=== PATIENT | male | born 1955 | race African-American/Black ===

== ENCOUNTER 2016-10-03 11:37 | Inpatient (IN) | payer OTHER ==
[2016-10-03] MEDS ORDERED: SODIUM CHLORIDE 0.9% 500 ML IV STA (12:08)
[2016-10-03] MEDS ORDERED: IV VANCOMYCIN PER PHARMACY 1 EACH MISC MISCELLANE PRN (12:08)
[2016-10-03] MEDS ORDERED: VANCOMYCIN 1,000 MG in SODIUM CHLORIDE 0.9% 250 ML IVPB ONE (12:15)
--- NOTE | 2016-10-03 12:20 | ED ---
General Adult HPI - General Chief complaint: Recheck/Abnormal Lab/Rx Stated complaint: BEATHING, SWELLING ABSCESS Time Seen by Provider: 10/03/16 11:59 Source: patient, RN notes reviewed Mode of arrival: ambulatory Limitations: no limitations - History of Present Illness Initial comments: 61-year-old male presents to emergency room chief complaint of abscesses to the back of both legs. Patient states he's had these since Saturday. Patient states one has been treating the other has not. Patient states his cold most of his legs to swell as well. Patient denies any fever chills with this. Patient states he has noticed some redness. Patient states that he is a heroin abuser and he did use heroin on Saturday. Patient denies any other issues at this time. Patient states he chronically shortness of breath and COPD and that is no different than normal. Patient denies any chest discomfort. Patient states that the abscess is just seemingly worsening so he thought that he was concerned. Patient denies any recent fever, chills, chest pain, back pain, abdominal pain, nausea vomiting, numbness or tingling, dysuria or hematuria, constipation or diarrhea, headaches or visual changes, or any other current symptoms. - Related Data Home Medications Medication Instructions Recorded Confirmed ALPRAZolam [Xanax] 0.25 mg PO TID PRN 10/03/16 10/03/16 Albuterol Inhaler [Ventolin Hfa 2 puff INHALATION RT-QID PRN 10/03/16 10/03/16 Inhaler] Ensure 1 can PO W/BRKFST 10/03/16 10/03/16 Ibuprofen [Motrin] 800 mg PO Q8HR PRN 10/03/16 10/03/16 Multivitamin [Men's Multi-Vitamin] 1 tab PO DAILY 10/03/16 10/03/16 Tiotropium 18 Mcg/Puff [Spiriva] 1 cap INHALATION RT-DAILY 10/03/16 10/03/16 traZODone HCL 50 - 100 mg PO HS 10/03/16 10/03/16 Allergies Allergy/AdvReac Type Severity Reaction Status Date / Time No Known Allergies Allergy Verified 10/03/16 12:22 Review of Systems ROS Statement: Those systems with pertinent positive or pertinent negative responses have been documented in the HPI. ROS Other: All systems not noted in ROS Statement are negative. Past Medical History Additional Past Medical History / Comment(s): IV drug abuse History of Any Multi-Drug Resistant Organisms: None Reported Past Surgical History: No Surgical Hx Reported Past Psychological History: No Psychological Hx Reported Smoking Status: Current every day smoker Past Alcohol Use History: None Reported Past Drug Use History: Heroin General Exam - General Exam Comments Initial Comments: General: The patient is awake and alert, in no distress, and does not appear acutely ill. Eye: Pupils are equal, round and reactive to light, extra-ocular movements are intact; there is normal conjunctiva bilaterally. No signs of icterus. Ears, nose, mouth and throat: There are moist mucous membranes. Neck: The neck is supple, there is no tenderness, Cardiovascular: There is a regular rate and rhythm. No murmur, rub or gallop is appreciated. Respiratory: Lungs are clear to auscultation, respirations are non-labored, breath sounds are equal. Minutes breath sounds. Gastrointestinal: Soft, non-distended, non-tender abdomen without masses or organomegaly noted. There is no rebound or guarding present. No CVA tenderness. Bowel sounds are unremarkable. Back: There is no tenderness to palpation in the midline. There is no obvious deformity. No rashes noted. Musculoskeletal: Normal ROM, no tenderness, patient does appear to have 2 large abscesses to the posterior aspect of the distal aspect of the left femurs one on the right does appear to be drained and now is indurated the one on the left does have fluctuance does appear to be needing drainage. Bilateral 2+ pitting edema Sensation intact. Pulses equal bilaterally 2+. Neurological: CN II-XII intact, There are no obvious motor or sensory deficits. Coordination appears grossly intact. Speech is normal. Skin: Skin is warm. Patient has nonblanching red last to the arms and legs. Patient has 2 abscesses behind the posterior thigh. Psychiatric: Cooperative, appropriate mood & affect, normal judgment. Limitations: no limitations Course Vital Signs 10/03/16 10/03/16 10/03/16 11:46 12:49 13:11 Temperature 97.6 F 97.7 F Pulse Rate 127 H 108 H 96 Respiratory 18 20 20 Rate Blood Pressure 125/62 162/92 136/85 O2 Sat by Pulse 97 72 L 99 Oximetry 10/03/16 10/03/16 10/03/16 13:22 14:00 16:06 Temperature 97.7 F Pulse Rate 96 92 92 Respiratory 18 20 18 Rate Blood Pressure 174/92 140/95 145/79 O2 Sat by Pulse 99 94 L 95 Oximetry EKG Findings - EKG Comments: EKG Findings:: normal sinus rhythm 94 bpm, normal axis, no atopy, no S-T depressions or elevations, Procedures - Procedures Initial comment: Procedure: Incision and drainage The skin overlying the abscess was prepped with Betadine, and anesthetized with 1% lidocaine without epinephrine. A #11 scalpel was then used to incise the abscess. Some purulent material was then extracted from the lesion. Wound culture obtained. Gauze dressing placed on top, The patient tolerated the procedure well. Medical Decision Making - Medical Decision Making 61-year-old male presents to the emergency department with a chief complaint of abscesses to bilateral legs with associated lower extremity swelling. At this time patient underwent an I&D of the bilateral lower extremities. Patient also has a petechial rash that is diffuse throughout the body. the hemoglobin has dropped since May. Patient's lab work otherwise is benign. Patient's cardiac exam shows no murmurs. Patient has continued to be afebrile patient has completely stable in the room. At this time we will admit the patient to Dr. Aguilar who is discussed the case with Dr. Khoury and does agree to the admission. Echo was discussed Dr. Aguilar states he would like to evaluate patient first. - Lab Data Result diagrams: 10/03/16 14:35 10/03/16 14:35 Lab Results 10/03/16 10/03/16 10/03/16 Range/Units 14:35 14:35 14:35 WBC 9.5 (3.8-10.6) k/uL RBC 3.72 L (4.30-5.90) m/uL Hgb 11.9 L (13.0-17.5) gm/dL Hct 37.3 L (39.0-53.0) % MCV 100.3 H (80.0-100.0) fL MCH 31.9 (25.0-35.0) pg MCHC 31.8 (31.0-37.0) g/dL RDW 13.3 (11.5-15.5) % Plt Count 209 (150-450) k/uL Neutrophils % 79 % Lymphocytes % 11 % Monocytes % 5 % Eosinophils % 3 % Basophils % 1 % Neutrophils # 7.5 (1.3-7.7) k/uL Lymphocytes # 1.0 (1.0-4.8) k/uL Monocytes # 0.5 (0-1.0) k/uL Eosinophils # 0.3 (0-0.7) k/uL Basophils # 0.1 (0-0.2) k/uL Hypochromasia Slight Sodium 146 H (137-145) mmol/L Potassium 4.2 (3.5-5.1) mmol/L Chloride 104 (98-107) mmol/L Carbon Dioxide 31 H (22-30) mmol/L Anion Gap 11 mmol/L BUN 23 H (9-20) mg/dL Creatinine 1.02 (0.66-1.25) mg/dL Est GFR (MDRD) Af Amer >60 (>60 ml/min/1.73 sqM) Est GFR (MDRD) Non-Af >60 (>60 ml/min/1.73 sqM) Glucose 87 (74-99) mg/dL Plasma Lactic Acid Heber (0.7-2.0) mmol/L Calcium 9.0 (8.4-10.2) mg/dL Magnesium 1.7 (1.6-2.3) mg/dL Total Bilirubin 0.7 (0.2-1.3) mg/dL AST 24 (17-59) U/L ALT 21 (21-72) U/L Alkaline Phosphatase 55 (38-126) U/L Troponin I (0.000-0.034) ng/mL NT-Pro-B Natriuret Pep 649 pg/mL Total Protein 7.8 (6.3-8.2) g/dL Albumin 3.3 L (3.5-5.0) g/dL 10/03/16 10/03/16 Range/Units 14:35 14:35 WBC (3.8-10.6) k/uL RBC (4.30-5.90) m/uL Hgb (13.0-17.5) gm/dL Hct (39.0-53.0) % MCV (80.0-100.0) fL MCH (25.0-35.0) pg MCHC (31.0-37.0) g/dL RDW (11.5-15.5) % Plt Count (150-450) k/uL Neutrophils % % Lymphocytes % % Monocytes % % Eosinophils % % Basophils % % Neutrophils # (1.3-7.7) k/uL Lymphocytes # (1.0-4.8) k/uL Monocytes # (0-1.0) k/uL Eosinophils # (0-0.7) k/uL Basophils # (0-0.2) k/uL Hypochromasia Sodium (137-145) mmol/L Potassium (3.5-5.1) mmol/L Chloride (98-107) mmol/L Carbon Dioxide (22-30) mmol/L Anion Gap mmol/L BUN (9-20) mg/dL Creatinine (0.66-1.25) mg/dL Est GFR (MDRD) Af Amer (>60 ml/min/1.73 sqM) Est GFR (MDRD) Non-Af (>60 ml/min/1.73 sqM) Glucose (74-99) mg/dL Plasma Lactic Acid Heber 0.8 (0.7-2.0) mmol/L Calcium (8.4-10.2) mg/dL Magnesium (1.6-2.3) mg/dL Total Bilirubin (0.2-1.3) mg/dL AST (17-59) U/L ALT (21-72) U/L Alkaline Phosphatase (38-126) U/L Troponin I <0.012 (0.000-0.034) ng/mL NT-Pro-B Natriuret Pep pg/mL Total Protein (6.3-8.2) g/dL Albumin (3.5-5.0) g/dL Disposition Clinical Impression: Bilateral lower leg cellulitis, Leg abscess, Petechiae, Hypernatremia Disposition: ADMITTED IP TO THIS [facility] Condition: Stable Time of Disposition: 16:28 Decision Date: 10/03/16 Decision Time: 16:28
[2016-10-03 15:04] LABS: Basophils # (A) 0.1 k/uL (0-0.2); Basophils % (A) 1 %; CH 31.2; CHCM 31.2; Eosinophils # (A) 0.3 k/uL (0-0.7); Eosinophils % (A) 3 %; HCT 37.3 % (39.0-53.0); HDW 2.56; HGB 11.9 gm/dL (13.0-17.5); Hypochromasia Slight; Luc # (Auto) 0.13; Luc % (Auto) 1; Lymphocytes % (A) 11 %; MCH 31.9 pg (25.0-35.0); MCHC 31.8 g/dL (31.0-37.0); MCV 100.3 fL (80.0-100.0); Mean Platelet Volume 7.5; Monocytes # (A) 0.5 k/uL (0-1.0); Monocytes % (A) 5 %; Neutrophils # (A) 7.5 k/uL (1.3-7.7); Neutrophils % (A) 79 %; RBC 3.72 m/uL (4.30-5.90); RDW 13.3 % (11.5-15.5); WBC 9.5 k/uL (3.8-10.6); WBC (Perox) 9.49
[2016-10-03 15:18] LABS: ALT 21 U/L (21-72); AST 24 U/L (17-59); Alkaline Phosphatase 55 U/L (38-126); Anion Gap 11 mmol/L; Blood Urea Nitrogen 23 mg/dL (9-20); Carbon Dioxide 31 mmol/L (22-30); Chloride 104 mmol/L (98-107); Glucose 87 mg/dL (74-99); Magnesium 1.7 mg/dL (1.6-2.3); Non-African American GFR(MDRD) >60 (>60 ml/min/1.73 sqM); Potassium 4.2 mmol/L (3.5-5.1); Sodium 146 mmol/L (137-145); Total Bilirubin 0.7 mg/dL (0.2-1.3); Total Protein 7.8 g/dL (6.3-8.2)
--- NOTE | 2016-10-03 15:19 | XR ---
EXAMINATION TYPE: XR chest 2V DATE OF EXAM: 10/03/2016 3:13 PM COMPARISON: Prior chest x-ray third of November 2011 HISTORY: Shortness of breath, pain TECHNIQUE: Frontal and lateral views of the chest are obtained. FINDINGS: There is no focal air space opacity, pleural effusion, or pneumothorax seen. The cardiac silhouette size is within normal limits. Prominent lung volume may be indicative of underlying COPD . There are overlying cardiac leads. The osseous structures are intact. IMPRESSION: No acute cardiopulmonary process.
[2016-10-03] MEDS ORDERED: IBUPROFEN 400 MG TAB PO PRN (16:28)
[2016-10-03] MEDS ORDERED: NALOXONE 0.4 MG/ML 1 ML VIAL IV PRN (16:28)
[2016-10-03] MEDS ORDERED: ACETAMINOPHEN TAB 325 MG TAB PO PRN (16:28)
[2016-10-03] MEDS ORDERED: ALBUTEROL NEBULIZED 2.5 MG/3 ML INHALATION PRN (16:30)
[2016-10-03] MEDS ORDERED: IBUPROFEN 800 MG TAB PO PRN (16:30)
[2016-10-03 16:54] LABS: Creatine Kinase MB 4.2 ng/mL (0.0-2.4)
[2016-10-03] MEDS: traZODone HCL 50 MG TAB PO SCH (21:30)
[2016-10-03] MEDS: SODIUM CHLORIDE 0.9% 1,000 ML IV SCH (21:30)
[2016-10-03 22:08] LABS: Creatine Kinase 97 U/L (55-170)
[2016-10-03 22:22] LABS: Troponin I <0.012 ng/mL (0.000-0.034)
[2016-10-04 03:39] LABS: Anion Gap 8 mmol/L; Calcium 8.9 mg/dL (8.4-10.2); Carbon Dioxide 31 mmol/L (22-30); Chloride 108 mmol/L (98-107); Glucose 99 mg/dL (74-99); Non-African American GFR(MDRD) >60 (>60 ml/min/1.73 sqM); Sodium 147 mmol/L (137-145); Total Bilirubin 0.8 mg/dL (0.2-1.3)
[2016-10-04 03:50] LABS: Troponin I 0.021 ng/mL (0.000-0.034)
[2016-10-04 03:54] LABS: Creatine Kinase MB 3.2 ng/mL (0.0-2.4)
[2016-10-04 03:55] LABS: ALT 20 U/L (21-72); AST 31 U/L (17-59); Alkaline Phosphatase 42 U/L (38-126); Blood Urea Nitrogen 23 mg/dL (9-20); Magnesium 1.9 mg/dL (1.6-2.3); Phosphorous 4.4 mg/dL (2.5-4.5)
[2016-10-04 03:57] LABS: Potassium 5.6 mmol/L (3.5-5.1)
[2016-10-04] MEDS ORDERED: VANCOMYCIN 1,000 MG in SODIUM CHLORIDE 0.9% 250 ML IVPB SCH ×2 (04:00→18:00)
[2016-10-04] MEDS ORDERED: NON-FORMULARY DRUG (Ensure 1 CAN) PO SCH (07:30)
[2016-10-04 08:53] LABS: Basophils # (A) 0.1 k/uL (0-0.2); Basophils % (A) 1 %; CH 30.6; CHCM 30.9; Eosinophils # (A) 0.3 k/uL (0-0.7); Eosinophils % (A) 4 %; HCT 34.7 % (39.0-53.0); HDW 2.57; HGB 10.9 gm/dL (13.0-17.5); Hypochromasia Slight; Luc # (Auto) 0.14; Luc % (Auto) 2; Lymphocytes # (A) 1.6 k/uL (1.0-4.8); Lymphocytes % (A) 18 %; MCH 31.4 pg (25.0-35.0); MCHC 31.6 g/dL (31.0-37.0); MCV 99.6 fL (80.0-100.0); Mean Platelet Volume 8.5; Monocytes # (A) 0.5 k/uL (0-1.0); Monocytes % (A) 5 %; Neutrophils # (A) 6.2 k/uL (1.3-7.7); Neutrophils % (A) 71 %; RBC 3.48 m/uL (4.30-5.90); RDW 13.1 % (11.5-15.5); WBC 8.8 k/uL (3.8-10.6); WBC (Perox) 8.88
[2016-10-04] MEDS: TIOTROPIUM 18 MCG/PUFF INHALER INHALATION SCH (09:12)
[2016-10-04] MEDS: SODIUM CHLORIDE 0.9% 1,000 ML IV SCH ×2 (09:44→17:26)
[2016-10-04] MEDS: MULTIVITAMINS, THERA 1 EACH TAB PO SCH (12:31)
[2016-10-04] MEDS: ALPRAZolam 0.25 MG TAB PO PRN (16:10)
[2016-10-04] MEDS: traZODone HCL 50 MG TAB PO SCH ×2 (20:07→22:38)
[2016-10-04] MEDS: cefTRIAXone 2,000 MG in SODIUM CHLORIDE 0.9% 100 ML IVPB SCH (23:38)
[2016-10-05] MEDS ORDERED: VANCOMYCIN TROUGH DUE 1 EACH MISC MISCELLANE ONE (05:00)
[2016-10-05 06:20] LABS: C Reactive Protein 33.9 mg/L (<10.0)
[2016-10-05] MEDS: TIOTROPIUM 18 MCG/PUFF INHALER INHALATION SCH (07:11)
[2016-10-05] MEDS: SODIUM CHLORIDE 0.9% 1,000 ML IV SCH ×2 (08:59→15:39)
[2016-10-05] MEDS: MULTIVITAMINS, THERA 1 EACH TAB PO SCH (11:06)
[2016-10-05] MEDS ORDERED: RX INFO: IV CONTRAST WAS GIVEN 1 EACH MISC MISCELLANE PRN (11:46)
[2016-10-05 12:40] LABS: Hepatitis B Surface Ag Index 0.26
[2016-10-05 12:46] LABS: Hepatitis B Core IgM Index 0.21
[2016-10-05 13:02] LABS: Hepatitis C Virus IgG Ab Reactive (Negative)
--- NOTE | 2016-10-05 14:40 | CT ---
EXAMINATION TYPE: CT ChestAbdPelvis w con DATE OF EXAM: 10/05/2016 12:39 PM COMPARISON: Chest x-ray September HISTORY: Body swelling CT DLP: 526.6 mGycm Automated exposure control for dose reduction was used. CONTRAST: CT scan of the chest, abdomen and pelvis is performed without Oral Contrast and with IV Contrast, pat ient injected with 100 mL of Omnipaque 300. FINDINGS: There are changes of anasarca. LUNGS: The lungs are remarkable for small right pleural effusion, some basilar airspace disease or at electasis is suspected on the right peripherally in the right lower lobe. Emphysematous changes are p resent within the lungs., there is no concerning parenchymal mass or nodule identified. There is no pleural effusion or pneumothorax seen. The tracheobronchial tree is patent. MEDIASTINUM: There are no greater than 1 cm hilar or mediastinal lymph nodes. No pericardial effusi on is seen. Small axillary nodes are present, mediastinal fat is somewhat increased in attenuation. AORTA: Atheromatous changes are present. The pulmonary artery is prominent. OTHER: No additional significant abnormality is seen. LIVER/GB: No significant abnormality is appreciated. PANCREAS: No significant abnormality is seen. SPLEEN: No significant abnormality is seen. ADRENALS: No significant abnormality is seen. KIDNEYS: Some small cortical cysts are present. REPRODUCTIVE ORGANS: No gross abnormality seen. BOWEL: No significant abnormality is seen. FREE AIR: No Free Air visible. ASCITES: There is some minimal free fluid present within the pelvis. RETROPERITONEAL ADENOPATHY: No retroperitoneal adenopathy is seen. LYMPH NODES: No greater than 1 cm abdominal or pelvic lymph nodes are appreciated. URINARY BLADDER: Not distended PELVIC ADENOPATHY: Suspect left inguinal adenopathy is present OSSEOUS STRUCTURES: No significant abnormality is seen. IMPRESSION: Left inguinal adenopathy, anasarca, some free fluid within the pelvis. Correlate for poss ible metastatic disease, lymphoma, leukemia. Possible right lower lobe atelectasis versus pneumonia a nd associated effusion. Possible pulmonary artery hypertension, emphysema. Poor differentiation of co ntrast within the abdomen due to lack of oral contrast and within the soft tissues may compromise sen sitivity. Follow-up as indicated.
[2016-10-05] MEDS: diphenhydrAMINE 50 MG CAP PO SCH ×3 (15:42→20:21)
--- NOTE | 2016-10-05 16:15 | PN ---
DATE OF SERVICE: 10/05/2016 CHIEF COMPLAINT: Cellulitis of the lower extremities and anasarca. HISTORY OF PRESENT ILLNESS: This gentleman seems to have more and more swelling. He has bilateral periorbital edema today. Hands are swollen as well. He has not had any chest pain, fever, chills, shortness of breath, etc. PHYSICAL EXAMINATION: He does have bilateral periorbital edema, which is moderately severe. He is able to open his eyes. CHEST: Clear. CARDIAC: Normal soft and nontender. EXTREMITIES: Still demonstrate multiple areas of cellulitis, dermal erythema and scarring from the injections. IMPRESSION: 1. Cellulitis of the lower extremities. 2. Generalized anasarca and edema, etiology unknown. PLAN: 1. CT of the abdomen and chest. 2. Await instructions from infectious disease. 3. Blood cultures. 4. Repeat labs.
--- NOTE | 2016-10-05 16:24 | HP ---
DATE OF ADMISSION: CHIEF COMPLAINT: Cellulitis of the lower extremities with a history of IVDA. HISTORY OF PRESENT ILLNESS: This is another admission for this 61-year-old, male. I have not seen him for some time. He has a long-standing history of drug user. He has been injecting arms and legs right up to the day of admission. He came to the hospital because of painful, red swollen legs. He also has had some generalized edema and erythema in the trunk, arms, legs and face. REVIEW OF SYSTEMS: He has had no headaches, neurologic deficits, change in vision or hearing, cough, hemoptysis, chest pain, murmurs, rheumatic fever, hypertension, heart disease, orthopnea, PND, abdominal pain, nausea, vomiting, hematemesis, melena, hematochezia, colitis, diverticulosis, diverticulitis, hemorrhage, jaundice, hepatitis, cirrhosis, hematuria, frequency, urgency, diabetes, etc. Past medical history, family history, personal and social history are otherwise unremarkable or unknown. It is not known if he is taking any medication. PHYSICAL EXAMINATION: VITAL SIGNS: Blood pressure 139/90 with a pulse of 83, respirations 35 and temperature is 100. In general he appeared to be in no acute distress. Skin demonstrated multiple scars and areas of hyper and hypopigmentation throughout the body, as well as areas of erythema suggesting some type of reactive phenomenon. Lymph nodes are not enlarged. Head, ears, eyes, mouth, and throat demonstrated some periorbital edema on the left. Pupils equal, round. Gaze seemed conjugate. Neck veins not distended. Chest is clear. There are no rales or rhonchi. Cardiac exam demonstrated sinus tachycardia with no murmurs or extra sounds. Abdomen was slightly protuberant and there are no masses or visceromegaly. There is no tenderness. Extremities demonstrated about 3+ edema of the hands and lower legs. Pulses cannot be appreciated. There are multiple areas of old and new sites of injections. Neurologically, he is intact. IMPRESSION: 1. Cellulitis lower extremities. 2. Generalized edema and anasarca, etiology unknown. 3. Intravenous drug abuse. PLAN: 1. Bed rest. 2. IV fluids. 3. Infectious Disease consult. 4. Intravenous antibiotics. 5. Appropriate cultures.
--- NOTE | 2016-10-05 16:27 | PN ---
DATE OF SERVICE: 10/04/2016 CHIEF COMPLAINT: Cellulitis and edema of the lower extremities. HISTORY OF PRESENT ILLNESS: This gentleman is doing fairly well, but is now developing more edema in the face. He has had a low-grade fever. He has had no vomiting, abdominal pain, confusion, etc. PHYSICAL EXAMINATION: HEENT is unchanged except for the periorbital edema on the left. Neck is supple. Chest is clear, but there are occasional rales. The cardiac exam is normal with no murmurs or extra sounds. The abdomen is soft without masses. Extremities are unchanged. IMPRESSION: 1. Cellulitis lower extremities. 2. Generalized anasarca and edema, etiology unknown. 3. Intravenous drug abuse. PLAN: Continuous IV fluids and antibiotics and await and Infectious Disease consult.
[2016-10-05] MEDS: cefTRIAXone 2,000 MG in SODIUM CHLORIDE 0.9% 100 ML IVPB SCH (20:00)
[2016-10-05] MEDS: traZODone HCL 50 MG TAB PO SCH (20:21)
[2016-10-06 07:38] LABS: Basophils % (A) 0 %; CH 30.7; Eosinophils # (A) 0.2 k/uL (0-0.7); Eosinophils % (A) 2 %; HDW 2.64; HGB 11.4 gm/dL (13.0-17.5); Luc # (Auto) 0.09; Luc % (Auto) 1; Lymphocytes # (A) 0.8 k/uL (1.0-4.8); Lymphocytes % (A) 10 %; MCH 31.4 pg (25.0-35.0); MCHC 32.6 g/dL (31.0-37.0); MCV 96.2 fL (80.0-100.0); Monocytes # (A) 0.2 k/uL (0-1.0); Monocytes % (A) 3 %; Neutrophils # (A) 7.2 k/uL (1.3-7.7); Neutrophils % (A) 84 %; RBC 3.64 m/uL (4.30-5.90); RDW 12.9 % (11.5-15.5); WBC 8.5 k/uL (3.8-10.6); WBC (Perox) 9.02
[2016-10-06] MEDS: TIOTROPIUM 18 MCG/PUFF INHALER INHALATION SCH (07:43)
[2016-10-06 08:05] LABS: Potassium 4.2 mmol/L (3.5-5.1); Total Bilirubin 0.7 mg/dL (0.2-1.3); Total Protein 7.4 g/dL (6.3-8.2)
[2016-10-06] MEDS: diphenhydrAMINE 50 MG CAP PO SCH ×4 (09:27→20:56)
[2016-10-06 10:41] VITALS: BMI 19.8
[2016-10-06] MEDS: MULTIVITAMINS, THERA 1 EACH TAB PO SCH (11:48)
--- NOTE | 2016-10-06 12:08 | P.CONS ---
History of Present Illness - Reason for Consult Consult date: 10/05/16 - Chief Complaint swelling and pain to the legs - History of Present Illness Pleasant 61-year-old -[place] male presents to hospital with bilateral lower extremity edema with evidence of open ulceration and drainage from the posterior aspect of his right leg. Because he was feeling poorly having increasing amounts of pain and swelling and presented to the emergency center. With this he was admitted to hospital for therapy and antibiotic treatment and infectious diseases consultation was requested. This pleasant gentleman to be modestly comfortable at this point in time. He is denying high-grade fevers, chills or rigors. Is having evidence of a somewhat generalized amount of erythema. It is not grossly pruritic. But on his legs it is bothering him mostly in the posterior aspect of the right leg where it is open and draining. He does have history of remote injection drug use. It is not current. He does not recall any specific injury to the right leg. He was is having increasing amounts of edema but then precipitated into the current acute state. Review of Systems patient relates it is modestly comfortable. Denying fevers chills or rigors. HEENT:Denies headache or acute visual change. Denies sinus or mouth discomforts. Denies neck stiffness or pain. Denies significant oral cavity pain. Denies difficulty on swallowing. Lungs: long-term tobacco use and has some chronic shortness of breath with cough but no hemoptysis or significant sputum production Cardiovascular: Denies significant shortness of breath, chest pain, chest wall pain, orthopnea, dyspnea on exertion, syncope Gastrointestinal:Denies nausea, vomiting, diarrhea, constipation, hematemesis, melena, hematochezia. No no significant change of bowel habit noticed. Musculoskeletal: denies significant myalgias or arthralgias. No new joint swelling. Denies new back pain. Skin: Having a bit of a rash and has a ulceration to the right lower extremity posterior and lower extremity edema that is chronic but acutely worsened. Neuro: Denies headache or visual change. Denies any new onset weakness or difficulty with ambulation. Denies falls or seizures. Psychiatric:Denies anxiety or depression. Endocrine: Denies significant fatigue, denies significant weight loss or weight gain. Past Medical History Past Medical History: COPD Additional Past Medical History / Comment(s): IV drug abuse, CHRONIC NECK/BACK PAIN, SINUS PROBLEMS History of Any Multi-Drug Resistant Organisms: None Reported Past Surgical History: No Surgical Hx Reported Additional Past Surgical History / Comment(s): COLONOSCOPY Past Anesthesia/Blood Transfusion Reactions: No Reported Reaction Past Psychological History: No Psychological Hx Reported Additional Psychological History / Comment(s): Single but lives with his significant other. 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 No experience. No extensive travel. No animal exposures. Positive tobacco use. Denies significant alcohol use. Extensive history of recreational drug use with heroin but it is not active. Smoking Status: Current every day smoker Past Alcohol Use History: None Reported Additional Past Alcohol Use History / Comment(s): STARTED SMOKING AT AGE 17 USED TO SMOKE 1-2 PPD CURRENTLY DOWN TO 3-4 CIG PER DAY. SMOKING CESSATION BOOKLET GIVEN TO PT. Past Drug Use History: Heroin, Marijuana Additional Drug Use History / Comment(s): PT STATED IN PAST USED( MARIJUANA, MESCULINE-NONE NOW). CURRENTLY USES HEROIN .STATED LAST USED HEROIN ON Saturday09-30-16 - Past Family History Father Family Medical History: Myocardial Infarction ([place]) Mother Additional Family Medical History / Comment(s): BRAIN ANEURYSM Medications and Allergies Home Medications and Allergies Comment(s): Current Medications Acetaminophen (Tylenol Tab) 650 mg PO Q6HR PRN PRN Reason: Mild Pain or Fever > 100.5 Albuterol Sulfate (Ventolin Nebulized) 2.5 mg INHALATION RT-QID PRN PRN Reason: Shortness Of Breath Alprazolam (Xanax) 0.25 mg PO TID PRN PRN Reason: Anxiety Last Admin: 10/04/16 16:10 Dose: 0.25 mg Diphenhydramine HCl (Benadryl) 50 mg PO QID [facility] Last Admin: 10/06/16 11:48 Dose: Not Given Ceftriaxone Sodium 2,000 mg/ (Sodium Chloride) 100 mls @ 100 mls/hr IVPB HS [facility] Last Admin: 10/05/16 20:00 Dose: 100 mls/hr Sodium Chloride (Saline 0.9%) 1,000 mls @ 20 mls/hr IV .Q24H [facility] Last Admin: 10/05/16 15:39 Dose: Not Given Ibuprofen (Motrin) 400 mg PO Q6HR PRN PRN Reason: Mild Pain or Fever > 100.5 Last Admin: 10/04/16 16:05 Dose: 400 mg Miscellaneous Information (Rx Info: Iv Contrast Was Given) 1 each MISCELLANE DAILY PRN PRN Reason: Per Protocol Stop: 10/07/16 11:48 Multivitamins (Theragran) 1 each PO DAILY@1200 [facility] Last Admin: 10/06/16 11:48 Dose: Not Given Naloxone HCl (Narcan) 0.2 mg IV Q2M PRN PRN Reason: Opioid Reversal Ondansetron HCl (Zofran) 4 mg IVP Q8HR PRN PRN Reason: Nausea And Vomiting Tiotropium Chamberlain (Spiriva) 1 puff INHALATION RT-DAILY [facility] Last Admin: 10/06/16 07:43 Dose: 1 puff Trazodone HCl (Desyrel) 50 mg PO [facility] Last Admin: 10/05/16 20:21 Dose: 50 mg Home Medications Medication Instructions Recorded Confirmed Type ALPRAZolam [Xanax] 0.25 mg PO TID PRN 10/03/16 10/03/16 History Albuterol Inhaler [Ventolin Hfa 2 puff INHALATION RT-QID PRN 10/03/16 10/03/16 History Inhaler] Ensure 1 can PO W/[id number] 10/03/16 10/03/16 History Ibuprofen [Motrin] 800 mg PO Q8HR PRN 10/03/16 10/03/16 History Multivitamin [Men's Multi-Vitamin] 1 tab PO DAILY 10/03/16 10/03/16 History Tiotropium 18 Mcg/Puff [Spiriva] 1 cap INHALATION RT-DAILY 10/03/16 10/03/16 History traZODone HCL 50 - 100 mg PO 10/03/16 10/03/16 History Allergies Allergy/AdvReac Type Severity Reaction Status Date / Time No Known Allergies Allergy Verified 10/03/16 12:22 Physical Exam Vitals: Vital Signs Temp Pulse Pulse Resp BP Pulse Ox 10/06/16 08:00 90 90 20 10/06/16 07:00 98.2 F 90 20 149/81 91 L 10/05/16 22:41 98.2 F 90 16 149/80 93 L 10/05/16 15:30 83 16 10/05/16 15:06 98.5 F 83 16 158/80 95 Intake and Output 10/05/16 10/06/16 10/06/16 22:59 06:59 14:59 Intake Total 60 160 Output Total 400 650 Balance -340 160 -650 Intake: IV 60 160 Sodium Chloride 0.9% 1, 60 160 000 ml @ 20 mls/hr IV . Q24H [facility] Rx#:[id number] Output: Urine 400 650 Other: Voiding Method Toilet Toilet Urinal # Voids 1 Weight 57.606 kg 57.606 kg Patient Weight 10/07/16 06:59 Weight 57.606 kg pleasant 61-year-old gentleman who looks older than his stated age. Is comfortable at this point in time. HEENT: Anicteric conjunctiva are pink and moist nasal mucosa grossly intact without significant lesions, there is no thrush.dentulous Neck: The neck is supple without significant lymphadenopathy or thyromegaly. Lungs: symmetrical air entry with expiratory crackles and wheezes that are scattered. No Stadium bronchial sounds or egophony is noted Heart: Regular rate and rhythm with an audible S1-S2, no S3 no S4. There is no significant murmur click or rub, PMI was nondisplaced. Abdomen: Positive bowel sounds soft and nontender without palpable masses or organomegaly. There was no guarding or rebound. Extremities: extremities have the chronic changes of prior injection drug use. There is some chronic changes and swelling especially to the hands and the lower extremities. Multiple lesions to the skin are noted from the prior injection drug use as well as from prior garcía. The posterior aspect of the right leg posterior aspect of the knee has evidence of some small open areas with some scant bloody drainage. There is nothing. They can be expressed. Is mildly tender. There is some surrounding erythema. Also has a generalized erythema to the upper and lower extremities at this time. Is nonpruritic and nontender. Neuro: Awake alert oriented to person place and time. There are no acute new gross focal sensory motor deficits. Results CBC & Chem 7: 10/06/16 07:08 10/06/16 07:08 Labs: WhiteBlood cell count of 8.8 Hemoglobin of 10.9 platelets of 206 Creatinine clearance greater than 60 hepatitis C antibody positive prealbumin of 7 wound cultures with gram-negative and gram-positive Assessment and Plan (1) Bilateral lower leg cellulitis Narrative/Plan: 61-year-old male presents to the emergency center with bilateral lower extremity edema some discomfort and erythema. He developed some generalized erythema also that was not highly pruritic. Because he was feeling poorly he presented to the emergency center. There was evidence of a cellulitis especially the right lower extremity with a potential abscess posteriorly to the knee. Does not relate this is the area where he most recently injected heroin this past Saturday. Fortunately he is not having high-grade fevers, chills or rigors. he does have evidence of poor nutrition and will need nutritional supplements multivitamin also requested Current pulmonary laboratory results reveal evidence of gram-positive cocci staph aureus not MRSA as well as a gram-negative bacilli. This antibiotic therapy is alter to ceftriaxone. Will provide coverage for both current pulmonary pathogens. Local wound care are nonstick dressings. There is a minimal drainage at this time. Elevation limbs at rest is helpful. computed tomography scan was performed which shows evidence of abnormality to the left inguinal area. with lymphadenopathy and fluid. This time the patient has a history of active injection drug use. Appears to have hepatitis C activity is not clear. This can be worked up in the outpatient setting as to the activity of his hepatitis C. Final cultures will help determine our course of antibiotic therapy at the time of his discharge. Status: Acute (2) Abscess of right leg Status: Acute (3) Uses drugs by injection Status: Acute
[2016-10-06] MEDS: SODIUM CHLORIDE 0.9% 1,000 ML IV SCH (13:45)
--- NOTE | 2016-10-06 13:55 | PN ---
CHIEF COMPLAINT: Cellulitis of the lower extremities. HISTORY OF PRESENT ILLNESS: The gentleman is feeling a little bit worse today and he is a little bit nauseated. He denies any chills. He has been seen by Infectious Disease. PHYSICAL EXAM: Face is less edematous today. Chest is fairly clear. The cardiac exam is normal. Hands are still swollen as are the feet and cellulitis of the legs seems to be slowly resolving. IMPRESSION: 1. Cellulitis of the lower extremities. 2. Generalized edema that is resolving. 3. Intravenous drug abuse. PLAN: Continue with IV antibiotics and continue to follow with Infectious Disease.
--- NOTE | 2016-10-06 15:06 | ECHOF ---
Referral Reason:LV function MEASUREMENTS -------- HEIGHT: 170.2 cm WEIGHT: 57.6 kg BP: 132/79 RVIDd: 3.5 cm (< 3.3) IVSd: 1.0 cm (0.6 - 1.1) LVIDd: 3.8 cm (3.9 - 5.3) LVPWd: 1.0 cm (0.6 - 1.1) IVSs: 1.2 cm LVIDs: 2.2 cm LVPWs: 1.2 cm LA Diam: 2.9 cm (2.7 - 3.8) LAESV Index (A-L): 20.45 ml/m Ao Diam: 3.1 cm (2.0 - 3.7) AV Cusp: 1.6 cm (1.5 - 2.6) LA Diam: 2.6 cm (2.7 - 3.8) MV EXCURSION: 18.048 mm (> 18.000) MV EF SLOPE: 64 mm/s (70 - 150) EPSS: 0.2 cm MV E Elder: 1.00 m/s MV DecT: 178 ms MV A Elder: 0.45 m/s MV E/A Ratio: 2.21 RAP: 15.00 mmHg RVSP: 61.96 mmHg FINDINGS -------- Sinus rhythm. This was a technically adequate study. Left ventricular wall thickness is normal. Overall left ventricular systolic function is normal with, an EF between 55 - 60 %. The right ventricle is mildly enlarged. The right ventricular systolic function is at the low end of normal. Normal LA size by volume 22+/-6 ml/m2. The right atrium is normal in size. The aortic valve is trileaflet and appears structurally normal. The mitral valve is normal. There is trace mitral regurgitation. Mild tricuspid regurgitation present. There is severe pulmonary hypertension. The right ventricular systolic pressure, as measured by Doppler, is 61.96mmHg. The pulmonic valve was not well visualized. There is no pulmonic regurgitation present. The aortic root size is normal. The inferior vena cava is dilated with poor inspiratory collapse which is consistent with estimated right atrial pressure of 15 mmHg. There is no pericardial effusion. CONCLUSIONS -------- 1. Sinus rhythm. 2. Mild tricuspid regurgitation present. 3. There is severe pulmonary hypertension. 4. The right ventricular systolic pressure, as measured by Doppler, is 61.96mmHg. 5. There is no pulmonic regurgitation present. 6. The aortic root size is normal. 7. The inferior vena cava is dilated with poor inspiratory collapse which is consistent with estimated right atrial pressure of 15 mmHg. 8. There is no pericardial effusion. 9. This was a technically adequate study. 10. Left ventricular wall thickness is normal. 11. Overall left ventricular systolic function is normal with, an EF between 55 - 60 %. 12. The right ventricle is mildly enlarged. 13. The right ventricular systolic function is at the low end of normal. 14. Normal LA size by volume 22+/-6 ml/m2. 15. The aortic valve is trileaflet and appears structurally normal. 16. There is trace mitral regurgitation. BRINE PROCESS OPERATOR: Christian Loyd RDCS
--- NOTE | 2016-10-06 15:55 | P.PN ---
Subjective Principal diagnosis: swelling and pain to the legs Pleasant 61-year-old -[place] male presents to hospital with bilateral lower extremity edema with evidence of open ulceration and drainage from the posterior aspect of his right leg. Because he was feeling poorly having increasing amounts of pain and swelling and presented to the emergency center. With this he was admitted to hospital for therapy and antibiotic treatment and infectious diseases consultation was requested. This pleasant gentleman to be modestly comfortable at this point in time. He is denying high-grade fevers, chills or rigors. Is having evidence of a somewhat generalized amount of erythema. It is not grossly pruritic. But on his legs it is bothering him mostly in the posterior aspect of the right leg where it is open and draining. He does have history of remote injection drug use. It is not current. He does not recall any specific injury to the right leg. Edema slightly improved. Drainage the right leg is improved. Objective - Vital Signs Vital signs: Vital Signs Temp 98.3 F 10/06/16 15:00 Pulse 99 10/06/16 15:00 Resp 20 10/06/16 15:00 BP 150/81 10/06/16 15:00 Pulse Ox 91 L 10/06/16 15:00 Intake & Output 10/05/16 10/06/16 10/06/16 18:59 06:59 18:59 Intake Total 320 220 360 Output Total 525 650 Balance -205 220 -290 Weight 57.606 kg 57.606 kg Intake: IV 320 220 Sodium Chloride 0.9% 1, 220 000 ml @ 20 mls/hr IV . Q24H [facility] Rx#:[id number] Sodium Chloride 0.9% 1, 320 000 ml @ 80 mls/hr IV . [id number] [facility] Rx#:[id number] Oral 360 Output: Urine 525 650 Other: Voiding Method Toilet Toilet Toilet Urinal # Voids 2 1 - Exam pleasant 61-year-old gentleman who looks older than his stated age. Is comfortable at this point in time. HEENT: Anicteric conjunctiva are pink and moist nasal mucosa grossly intact without significant lesions, there is no thrush.dentulous Neck: The neck is supple without significant lymphadenopathy or thyromegaly. Lungs: symmetrical air entry with expiratory crackles and wheezes that are scattered. No Stadium bronchial sounds or egophony is noted Heart: Regular rate and rhythm with an audible S1-S2, no S3 no S4. There is no significant murmur click or rub, PMI was nondisplaced. Abdomen: Positive bowel sounds soft and nontender without palpable masses or organomegaly. There was no guarding or rebound. Extremities: extremities have the chronic changes of prior injection drug use. There is some chronic changes and swelling especially to the hands and the lower extremities. Multiple lesions to the skin are noted from the prior injection drug use as well as from prior garcía. The posterior aspect of the right leg posterior aspect of the knee has evidence of some small open areas with some scant bloody drainage. There is nothing. They can be expressed. Is mildly tender. There is some surrounding erythema. The erythema to the arms is considerably improved today. Is nonpruritic and nontender. Neuro: Awake alert oriented to person place and time. There are no acute new gross focal sensory motor deficits. - Labs CBC & Chem 7: 10/06/16 07:08 10/06/16 07:08 Labs: Abnormal Lab Results - Last 24 Hours (Table) 10/06/16 10/06/16 Range/Units 07:08 07:08 RBC 3.64 L (4.30-5.90) m/uL Hgb 11.4 L (13.0-17.5) gm/dL Hct 35.0 L (39.0-53.0) % Lymphocytes # 0.8 L (1.0-4.8) k/uL Sodium 146 H (137-145) mmol/L Chloride 108 H (98-107) mmol/L BUN 25 H (9-20) mg/dL Creatinine 1.82 H (0.66-1.25) mg/dL Albumin 2.9 L (3.5-5.0) g/dL Laboratory Results WBC 8.5 k/uL (3.8-10.6) 10/06/16 07:08 RBC 3.64 m/uL (4.30-5.90) L 10/06/16 07:08 Hgb 11.4 gm/dL (13.0-17.5) L 10/06/16 07:08 Hct 35.0 % (39.0-53.0) L 10/06/16 07:08 MCV 96.2 fL (80.0-100.0) 10/06/16 07:08 MCH 31.4 pg (25.0-35.0) 10/06/16 07:08 MCHC 32.6 g/dL (31.0-37.0) 10/06/16 07:08 RDW 12.9 % (11.5-15.5) 10/06/16 07:08 Plt Count 233 k/uL (150-450) 10/06/16 07:08 Neutrophils % 84 % 10/06/16 07:08 Lymphocytes % 10 % 10/06/16 07:08 Monocytes % 3 % 10/06/16 07:08 Eosinophils % 2 % 10/06/16 07:08 Basophils % 0 % 10/06/16 07:08 Neutrophils # 7.2 k/uL (1.3-7.7) 10/06/16 07:08 Lymphocytes # 0.8 k/uL (1.0-4.8) L 10/06/16 07:08 Monocytes # 0.2 k/uL (0-1.0) 10/06/16 07:08 Eosinophils # 0.2 k/uL (0-0.7) 10/06/16 07:08 Basophils # 0.0 k/uL (0-0.2) 10/06/16 07:08 Hypochromasia Slight 10/04/16 07:57 ESR 49 mm/hr (0-15) H 10/05/16 05:49 Sodium 146 mmol/L (137-145) H 10/06/16 07:08 Potassium 4.2 mmol/L (3.5-5.1) 10/06/16 07:08 Chloride 108 mmol/L (98-107) H 10/06/16 07:08 Carbon Dioxide 28 mmol/L (22-30) 10/06/16 07:08 Anion Gap 10 mmol/L 10/06/16 07:08 BUN 25 mg/dL (9-20) H 10/06/16 07:08 Creatinine 1.82 mg/dL (0.66-1.25) H 10/06/16 07:08 Est GFR (MDRD) Af Amer 46 (>60 ml/min/1.73 sqM) 10/06/16 07:08 Est GFR (MDRD) Non-Af 38 (>60 ml/min/1.73 sqM) 10/06/16 07:08 Glucose 90 mg/dL (74-99) 10/06/16 07:08 Plasma Lactic Acid Heber 0.8 mmol/L (0.7-2.0) 10/03/16 14:35 Calcium 9.0 mg/dL (8.4-10.2) 10/06/16 07:08 Phosphorus 4.4 mg/dL (2.5-4.5) 10/04/16 03:00 Magnesium 1.9 mg/dL (1.6-2.3) 10/04/16 03:00 Total Bilirubin 0.7 mg/dL (0.2-1.3) 10/06/16 07:08 AST 27 U/L (17-59) 10/06/16 07:08 ALT 21 U/L (21-72) 10/06/16 07:08 Alkaline Phosphatase 52 U/L (38-126) 10/06/16 07:08 Total Creatine Kinase 83 U/L (55-170) 10/04/16 03:00 CK-MB (CK-2) 3.2 ng/mL (0.0-2.4) H* 10/04/16 03:00 CK-MB (CK-2) Rel Index 3.9 10/04/16 03:00 Troponin I 0.021 ng/mL (0.000-0.034) 10/04/16 03:00 C-Reactive Protein 33.9 mg/L (<10.0) H 10/05/16 05:49 NT-Pro-B Natriuret Pep 649 pg/mL 10/03/16 14:35 Total Protein 7.4 g/dL (6.3-8.2) 10/06/16 07:08 Albumin 2.9 g/dL (3.5-5.0) L 10/06/16 07:08 Prealbumin 7 mg/dL (18-36) L 10/05/16 05:49 Vancomycin Trough 16.2 ug/mL 10/05/16 05:49 Hepatitis A IgM Ab NEGATIVE 10/05/16 05:49 Hep Bs Antigen Negative 10/05/16 05:49 Hep B Core IgM Ab NEGATIVE 10/05/16 05:49 Hep C IgG Ab Reactive (Negative) 10/05/16 05:49 Microbiology 10/03/16 12:53 Leg - Right Gram Stain - Final 10/03/16 12:53 Leg - Right Wound Culture - Final Proteus mirabilis Staphylococcus aureus 10/03/16 14:35 Leg - Right Gram Stain - Final 10/03/16 14:35 Leg - Right Wound Culture - Final Proteus mirabilis Staphylococcus aureus 10/03/16 14:35 Blood Blood Culture - Preliminary No Growth after 48 hours Assessment and Plan (1) Bilateral lower leg cellulitis Narrative/Plan: 61-year-old male presents to the emergency center with bilateral lower extremity edema some discomfort and erythema. He developed some generalized erythema also that was not highly pruritic. Because he was feeling poorly he presented to the emergency center. There was evidence of a cellulitis especially the right lower extremity with a potential abscess posteriorly to the knee. Does not relate this is the area where he most recently injected heroin this past Saturday. Fortunately he is not having high-grade fevers, chills or rigors. he does have evidence of poor nutrition and will need nutritional supplements multivitamin also requested Current pulmonary laboratory results reveal evidence of gram-positive cocci staph aureus not MRSA as well as a gram-negative bacilli. This antibiotic therapy is alter to ceftriaxone. Will provide coverage for both current pulmonary pathogens. Local wound care are nonstick dressings. There is a minimal drainage at this time. Elevation limbs at rest is helpful. computed tomography scan was performed which shows evidence of abnormality to the left inguinal area. with lymphadenopathy and fluid. This time the patient has a history of active injection drug use. Appears to have hepatitis C, activity is not clear. This can be worked up in the outpatient setting as to the activity of his hepatitis C. If no recent HIV testing this should also be done. Final cultures will help determine our course of antibiotic therapy at the time of his discharge. Fortunately does not appear to have MRSA. Status: Acute (2) Abscess of right leg Status: Acute (3) Uses drugs by injection Status: Acute
[2016-10-06] MEDS: ALPRAZolam 0.25 MG TAB PO PRN (17:14)
[2016-10-06] MEDS: cefTRIAXone 2,000 MG in SODIUM CHLORIDE 0.9% 100 ML IVPB SCH (20:56)
[2016-10-06] MEDS: LORazepam 1 MG TAB PO PRN (21:04)
[2016-10-06] MEDS: THIAMINE 100 MG TAB PO SCH (21:04)
[2016-10-06] MEDS: traZODone HCL 50 MG TAB PO SCH (21:04)
[2016-10-06] MEDS: ONDANSETRON 4 MG/2 ML VIAL IVP PRN (21:04)
[2016-10-07] MEDS: TIOTROPIUM 18 MCG/PUFF INHALER INHALATION SCH (08:27)
[2016-10-07] MEDS: THIAMINE 100 MG TAB PO SCH ×2 (09:57→21:34)
[2016-10-07] MEDS: diphenhydrAMINE 50 MG CAP PO SCH ×4 (09:57→21:34)
[2016-10-07] MEDS: ONDANSETRON 4 MG/2 ML VIAL IVP PRN (10:06)
[2016-10-07] MEDS: LORazepam 1 MG TAB PO PRN (10:06)
[2016-10-07] MEDS: MULTIVITAMINS, THERA 1 EACH TAB PO SCH (11:23)
[2016-10-07] MEDS: cloNIDine HCL 0.2 MG TAB PO SCH ×3 (12:13→21:34)
[2016-10-07] MEDS: SODIUM CHLORIDE 0.9% 1,000 ML IV SCH (12:14)
--- NOTE | 2016-10-07 13:42 | P.PN ---
Subjective Principal diagnosis: swelling and pain to the legs Mehdi 61-year-old -[place] male presents to hospital with bilateral lower extremity edema with evidence of open ulceration and drainage from the posterior aspect of his right leg. Because he was feeling poorly having increasing amounts of pain and swelling and presented to the emergency center. With this he was admitted to hospital for therapy and antibiotic treatment and infectious diseases consultation was requested. This pleasant gentleman to be modestly comfortable at this point in time. He is denying high-grade fevers, chills or rigors. Is having evidence of a somewhat generalized amount of erythema. It is not grossly pruritic. But on his legs it is bothering him mostly in the posterior aspect of the right leg where it is open and draining. He does have history of remote injection drug use. It is not current. He does not recall any specific injury to the right leg. Edema slightly improved. Drainage the right leg is improved. Neuro: Patient more sedated today. Apparently started to develop some difficulties with alcohol withdrawal and is now on the CIWA protocol Objective - Vital Signs Vital signs: Vital Signs Temp 98.9 F 10/07/16 07:00 Pulse 90 10/07/16 08:00 Resp 18 10/07/16 08:00 BP 137/77 10/07/16 07:00 Pulse Ox 94 L 10/07/16 07:00 Intake & Output 10/06/16 10/07/16 10/07/16 18:59 06:59 18:59 Intake Total 360 240 Output Total 650 275 Balance -290 -35 Weight 57.606 kg Intake: IV 240 Sodium Chloride 0.9% 1, 240 000 ml @ 20 mls/hr IV . Q24H [facility] Rx#:[id number] Oral 360 Output: Urine 650 275 Other: Voiding Method Toilet Toilet Toilet Urinal Urinal Urinal # Voids 375 - Exam pleasant 61-year-old gentleman who looks older than his stated age. Is comfortable at this point in time. HEENT: Anicteric conjunctiva are pink and moist nasal mucosa grossly intact without significant lesions, there is no thrush.dentulous Neck: The neck is supple without significant lymphadenopathy or thyromegaly. Lungs: symmetrical air entry with expiratory crackles and wheezes that are scattered. No [place] bronchial sounds or egophony is noted Heart: Regular rate and rhythm with an audible S1-S2, no S3 no S4. There is no significant murmur click or rub, PMI was nondisplaced. Abdomen: Positive bowel sounds soft and nontender without palpable masses or organomegaly. There was no guarding or rebound. Extremities: extremities have the chronic changes of prior injection drug use. There is some chronic changes and swelling especially to the hands and the lower extremities. Multiple lesions to the skin are noted from the prior injection drug use as well as from prior garcía. The posterior aspect of the right leg posterior aspect of the knee has evidence of some small open areas with some scant bloody drainage. There is nothing. They can be expressed. Is mildly tender. There is some surrounding erythema. The erythema to the arms is considerably improved today. Is nonpruritic and nontender. Neuro: Somewhat sedated at this time from treatment of his CIWA protocol - Labs CBC & Chem 7: 10/06/16 07:08 10/06/16 07:08 Labs: Current Medications Acetaminophen (Tylenol Tab) 650 mg PO Q6HR PRN PRN Reason: Mild Pain or Fever > 100.5 Albuterol Sulfate (Ventolin Nebulized) 2.5 mg INHALATION RT-QID PRN PRN Reason: Shortness Of Breath Clonidine (Catapres) 0.2 mg PO TID [facility] Last Admin: 10/07/16 12:13 Dose: 0.2 mg Diphenhydramine HCl (Benadryl) 50 mg PO QID [facility] Last Admin: 10/07/16 12:14 Dose: Not Given Ceftriaxone Sodium 2,000 mg/ (Sodium Chloride) 100 mls @ 100 mls/hr IVPB HS [facility] Last Admin: 10/06/16 20:56 Dose: 100 mls/hr Sodium Chloride (Saline 0.9%) 1,000 mls @ 20 mls/hr IV .Q24H [facility] Last Admin: 10/07/16 12:14 Dose: 20 mls/hr Ibuprofen (Motrin) 400 mg PO Q6HR PRN PRN Reason: Mild Pain or Fever > 100.5 Last Admin: 10/04/16 16:05 Dose: 400 mg Lorazepam (Ativan) 1 mg PO TID PRN PRN Reason: Anxiety Last Admin: 10/07/16 10:06 Dose: 1 mg Multivitamins (Theragran) 1 each PO DAILY@1200 [facility] Last Admin: 10/07/16 11:23 Dose: 1 each Naloxone HCl (Narcan) 0.2 mg IV Q2M PRN PRN Reason: Opioid Reversal Ondansetron HCl (Zofran) 4 mg IVP Q8HR PRN PRN Reason: Nausea And Vomiting Last Admin: 10/07/16 10:06 Dose: 4 mg Thiamine HCl (Vitamin B-1) 100 mg PO BID [facility] Last Admin: 10/07/16 09:57 Dose: 100 mg Tiotropium [place] (Spiriva) 1 puff INHALATION RT-DAILY [facility] Last Admin: 10/07/16 08:27 Dose: 1 puff Trazodone HCl (Desyrel) 50 mg PO HS [facility] Last Admin: 10/06/16 21:04 Dose: Not Given Laboratory Results WBC 8.5 k/uL (3.8-10.6) 10/06/16 07:08 RBC 3.64 m/uL (4.30-5.90) L 10/06/16 07:08 Hgb 11.4 gm/dL (13.0-17.5) L 10/06/16 07:08 Hct 35.0 % (39.0-53.0) L 10/06/16 07:08 MCV 96.2 fL (80.0-100.0) 10/06/16 07:08 MCH 31.4 pg (25.0-35.0) 10/06/16 07:08 MCHC 32.6 g/dL (31.0-37.0) 10/06/16 07:08 RDW 12.9 % (11.5-15.5) 10/06/16 07:08 Plt Count 233 k/uL (150-450) 10/06/16 07:08 Neutrophils % 84 % 10/06/16 07:08 Lymphocytes % 10 % 10/06/16 07:08 Monocytes % 3 % 10/06/16 07:08 Eosinophils % 2 % 10/06/16 07:08 Basophils % 0 % 10/06/16 07:08 Neutrophils # 7.2 k/uL (1.3-7.7) 10/06/16 07:08 Lymphocytes # 0.8 k/uL (1.0-4.8) L 10/06/16 07:08 Monocytes # 0.2 k/uL (0-1.0) 10/06/16 07:08 Eosinophils # 0.2 k/uL (0-0.7) 10/06/16 07:08 Basophils # 0.0 k/uL (0-0.2) 10/06/16 07:08 Hypochromasia Slight 10/04/16 07:57 ESR 49 mm/hr (0-15) H 10/05/16 05:49 Sodium 146 mmol/L (137-145) H 10/06/16 07:08 Potassium 4.2 mmol/L (3.5-5.1) 10/06/16 07:08 Chloride 108 mmol/L (98-107) H 10/06/16 07:08 Carbon Dioxide 28 mmol/L (22-30) 10/06/16 07:08 Anion Gap 10 mmol/L 10/06/16 07:08 BUN 25 mg/dL (9-20) H 10/06/16 07:08 Creatinine 1.82 mg/dL (0.66-1.25) H 10/06/16 07:08 Est GFR (MDRD) Af Amer 46 (>60 ml/min/1.73 sqM) 10/06/16 07:08 Est GFR (MDRD) Non-Af 38 (>60 ml/min/1.73 sqM) 10/06/16 07:08 Glucose 90 mg/dL (74-99) 10/06/16 07:08 Plasma Lactic Acid [place] 1.1 mmol/L (0.7-2.0) 10/06/16 18:07 Calcium 9.0 mg/dL (8.4-10.2) 10/06/16 07:08 Phosphorus 4.4 mg/dL (2.5-4.5) 10/04/16 03:00 Magnesium 1.9 mg/dL (1.6-2.3) 10/04/16 03:00 Total Bilirubin 0.7 mg/dL (0.2-1.3) 10/06/16 07:08 AST 27 U/L (17-59) 10/06/16 07:08 ALT 21 U/L (21-72) 10/06/16 07:08 Alkaline Phosphatase 52 U/L (38-126) 10/06/16 07:08 Total Creatine Kinase 83 U/L (55-170) 10/04/16 03:00 CK-MB (CK-2) 3.2 ng/mL (0.0-2.4) H* 10/04/16 03:00 CK-MB (CK-2) Rel Index 3.9 10/04/16 03:00 Troponin I 0.021 ng/mL (0.000-0.034) 10/04/16 03:00 C-Reactive Protein 33.9 mg/L (<10.0) H 10/05/16 05:49 NT-Pro-B Natriuret Pep 649 pg/mL 10/03/16 14:35 Total Protein 7.4 g/dL (6.3-8.2) 10/06/16 07:08 Albumin 2.9 g/dL (3.5-5.0) L 10/06/16 07:08 Prealbumin 7 mg/dL (18-36) L 10/05/16 05:49 Vancomycin Trough 16.2 ug/mL 10/05/16 05:49 Hepatitis A IgM Ab NEGATIVE 10/05/16 05:49 Hep Bs Antigen Negative 10/05/16 05:49 Hep B Core IgM Ab NEGATIVE 10/05/16 05:49 Hep C IgG Ab Reactive (Negative) 10/05/16 05:49 Microbiology 10/03/16 14:35 Blood Blood Culture - Preliminary No Growth after 72 hours 10/03/16 12:53 Leg - Right Gram Stain - Final 10/03/16 12:53 Leg - Right Wound Culture - Final Proteus mirabilis Staphylococcus aureus 10/03/16 14:35 Leg - Right Gram Stain - Final 10/03/16 14:35 Leg - Right Wound Culture - Final Proteus mirabilis Staphylococcus aureus Assessment and Plan (1) Bilateral lower leg cellulitis Narrative/Plan: 61-year-old male presents to the emergency center with bilateral lower extremity edema some discomfort and erythema. He developed some generalized erythema also that was not highly pruritic. Because he was feeling poorly he presented to the emergency center. There was evidence of a cellulitis especially the right lower extremity with a potential abscess posteriorly to the knee. Does not relate this is the area where he most recently injected heroin this past Saturday. Fortunately he is not having high-grade fevers, chills or rigors. he does have evidence of poor nutrition and will need nutritional supplements multivitamin also requested Current pulmonary laboratory results reveal evidence of gram-positive cocci staph aureus not MRSA as well as a gram-negative bacilli. This antibiotic therapy is alter to ceftriaxone. Will provide coverage for both current pulmonary pathogens. Local wound care are nonstick dressings. There is a minimal drainage at this time. Elevation limbs at rest is helpful. computed tomography scan was performed which shows evidence of abnormality to the left inguinal area. with lymphadenopathy and fluid. This time the patient has a history of active injection drug use. Appears to have hepatitis C, activity is not clear. This can be worked up in the outpatient setting as to the activity of his hepatitis C. HIV testing has been received at the laboratory and the results are pending. We 'll update the patient when it's available. Culture is finalized [place] Proteus mirabilis as well as MSSA. We'll be able to finish treatment of his cellulitis to his right leg with cefuroxime 500 mg every 12 hours for a week at the time of his discharge. Local wound care as a nonstick dressing. Control his lower extremity edema with some type of compression at the time of discharge will also be helpful. Status: Acute (2) Abscess of right leg Status: Acute (3) Uses drugs by injection Status: Acute
[2016-10-07] MEDS: cefTRIAXone 2,000 MG in SODIUM CHLORIDE 0.9% 100 ML IVPB SCH (21:30)
[2016-10-07] MEDS: traZODone HCL 50 MG TAB PO SCH (21:34)
[2016-10-08 03:47] LABS: HIV-1/HIV-2 Ab Screen NONREAC (NON REAC)
[2016-10-08] MEDS: TIOTROPIUM 18 MCG/PUFF INHALER INHALATION SCH (07:31)
[2016-10-08] MEDS: cloNIDine HCL 0.2 MG TAB PO SCH (09:11)
[2016-10-08] MEDS: SODIUM CHLORIDE 0.9% 1,000 ML IV SCH ×5 (09:11→21:47)
[2016-10-08] MEDS: diphenhydrAMINE 50 MG CAP PO SCH (09:11)
[2016-10-08] MEDS: THIAMINE 100 MG TAB PO SCH ×2 (09:11→21:36)
[2016-10-08] MEDS: ONDANSETRON 4 MG/2 ML VIAL IVP PRN ×2 (09:40→21:34)
--- NOTE | 2016-10-08 09:47 | PN ---
CHIEF COMPLAINT: Cellulitis lower extremities, intravenous drug abuse and probable withdrawals. HISTORY OF PRESENT ILLNESS: This gentleman is doing a little bit better. He is started on Catapres today which was thought to be with symptoms of withdrawal. He is also on tranquilizer. PHYSICAL EXAMINATION: He is afebrile. CHEST: Clear. CARDIAC: Normal. ABDOMEN: Soft, nontender. He is awake and alert. IMPRESSION: 1. Probable withdrawal - alcohol ? 2. Intravenous drug abuse. 3. Cellulitis of legs. 4. Generalized edema. PLAN: Catapres 0.2 three times a day.
[2016-10-08] MEDS ORDERED: diphenhydrAMINE 50 MG CAP PO PRN (11:37)
--- NOTE | 2016-10-08 12:03 | P.PN ---
Subjective 61-year-old male being seen this morning. Patient currently is resting in bed. There's no noted improvement in the edema to the bilateral lower extremities. Patients being followed by infectious disease recommendations noted and appreciated. Patients being treated for alcohol withdrawal currently is on a [facility] protocol for impending DTs. Patient does have a remote history of IV drug abuse. Currently the patient is afebrile temp is 98.6 Objective - Vital Signs Vital signs: Vital Signs Temp 98.6 F 10/08/16 07:00 Pulse 79 10/08/16 07:00 Resp 20 10/08/16 07:00 BP 158/83 10/08/16 07:00 Pulse Ox 92 L 10/08/16 07:00 Intake & Output 10/07/16 10/08/16 10/08/16 18:59 06:59 18:59 Intake Total 200 Output Total 600 800 Balance -400 -800 Intake: Oral 200 Output: Urine 600 800 Other: Voiding Method Toilet Toilet Urinal Urinal # Voids 2 - Exam Physical exam 61-year-old Afro-Bulgarian male looking older than stated age sitting in bed chief complaint "tired out. Lungs essentially clear adequate air movement sats on 2 L 95% Heart S1-S2 audible and regular Abdomen soft nursing reports patient has been having frequent loose stools is urinating no incontinent Extremities there is a posterior aspect of the right leg open no active drainage generalized ischemia noted was a noted improvement in the edema to the bilateral lower legs. - Labs CBC & Chem 7: 10/06/16 07:08 10/06/16 07:08 Assessment and Plan Plan: Impression Present on admission bilateral lower extremity cellulitis right posterior extremity History of active IV drug abuse last injected heroin within the week of admission to the emergency room Culture is finalized [place] Proteus mirabilis as well as MSSA. From the right posterior upper thigh Present on admission cellulitis with Abscess right upper thigh History of hepatitis C Essential hypertension with episodes of hypertension urgency Acute renal failure suspect due to poor oral intake Status post incision and drainage done in the emergency room of the abscess right posterior upper thigh Present on admission 2 large abscesses noted to the posterior aspect right upper thigh of the distal aspect of the right leg Plan Repeat labs now Increase IV fluid 100 and hour Monitor blood pressure Will add Apresoline 50 twice a day monitor the response Stop [id number] Benadryl secondary to sedation Continue with the CIWA protocol for impending DTs possible alcohol abuse Infectious disease recommendations appreciated at the time of discharge patient could be discharged on Ceftin 500 every 12 for a week Wound care nonstick dressing with Mauro wrap stool the bilateral lower extremities keep elevated at all times Further recommendations The above dictated assessment and findings were discussed with dr john . Impression and the plan of care have been dictated as directed. Neena Clark nurse practitioner acting as a scribe for dr john.
[2016-10-08] MEDS: MULTIVITAMINS, THERA 1 EACH TAB PO SCH (13:01)
[2016-10-08] MEDS: hydrALAZINE HCL 50 MG TAB PO SCH ×2 (13:01→21:37)
[2016-10-08 13:18] LABS: Calcium 8.9 mg/dL (8.4-10.2); Total Bilirubin 0.7 mg/dL (0.2-1.3); Total Protein 7.3 g/dL (6.3-8.2)
[2016-10-08 13:23] LABS: Potassium 4.2 mmol/L (3.5-5.1)
[2016-10-08] MEDS: cloNIDine HCL 0.1 MG TAB PO SCH ×2 (18:25→21:36)
--- NOTE | 2016-10-08 19:21 | P.PN ---
Subjective Principal diagnosis: swelling and pain to the legs Mehdi 61-year-old -[place] male presents to hospital with bilateral lower extremity edema with evidence of open ulceration and drainage from the posterior aspect of his right leg. Because he was feeling poorly having increasing amounts of pain and swelling and presented to the emergency center. With this he was admitted to hospital for therapy and antibiotic treatment and infectious diseases consultation was requested. This pleasant gentleman to be modestly comfortable at this point in time. He is denying high-grade fevers, chills or rigors. Is having evidence of a somewhat generalized amount of erythema. It is not grossly pruritic. But on his legs it is bothering him mostly in the posterior aspect of the right leg where it is open and draining. He does have history of remote injection drug use. It is not current. He does not recall any specific injury to the right leg. Edema slightly improved. Drainage the right leg is improved. Neuro: More awake and alert today. Objective - Vital Signs Vital signs: Vital Signs Temp 98.4 F 10/08/16 15:00 Pulse 99 10/08/16 15:00 Resp 18 10/08/16 15:00 BP 140/80 10/08/16 15:00 Pulse Ox 90 L 10/08/16 15:00 Intake & Output 10/08/16 10/08/16 10/09/16 06:59 18:59 06:59 Output Total 800 225 Balance -800 -225 Output: Urine 800 225 Other: Voiding Method Toilet Toilet Urinal Urinal # Voids 2 - Exam mehdi 61-year-old gentleman who looks older than his stated age. Is comfortable at this point in time. HEENT: Anicteric conjunctiva are pink and moist nasal mucosa grossly intact without significant lesions, there is no thrush.dentulous Neck: The neck is supple without significant lymphadenopathy or thyromegaly. Lungs: symmetrical air entry with expiratory crackles and wheezes that are scattered. No [place] bronchial sounds or egophony is noted Heart: Regular rate and rhythm with an audible S1-S2, no S3 no S4. There is no significant murmur click or rub, PMI was nondisplaced. Abdomen: Positive bowel sounds soft and nontender without palpable masses or organomegaly. There was no guarding or rebound. Extremities: extremities have the chronic changes of prior injection drug use. There is some chronic changes and swelling especially to the hands and the lower extremities. Multiple lesions to the skin are noted from the prior injection drug use as well as from prior garcía. The posterior aspect of the right leg posterior aspect of the knee has evidence of some small open areas without any significant drainage and nothing can be expressed from the site. Is mildly tender. There is some surrounding erythema. The erythema to the arms is considerably improved today. Is nonpruritic and nontender. Neuro: Much more awake today. Much less sedated. Is on less medications per the [facility] protocol - Labs CBC & Chem 7: 10/06/16 07:08 10/08/16 12:15 Labs: Abnormal Lab Results - Last 24 Hours (Table) 10/08/16 Range/Units 12:15 BUN 38 H (9-20) mg/dL Creatinine 1.51 H (0.66-1.25) mg/dL Glucose 132 H (74-99) mg/dL ALT 15 L (21-72) U/L Albumin 2.9 L (3.5-5.0) g/dL Laboratory Results WBC 8.5 k/uL (3.8-10.6) 10/06/16 07:08 RBC 3.64 m/uL (4.30-5.90) L 10/06/16 07:08 Hgb 11.4 gm/dL (13.0-17.5) L 10/06/16 07:08 Hct 35.0 % (39.0-53.0) L 10/06/16 07:08 MCV 96.2 fL (80.0-100.0) 10/06/16 07:08 MCH 31.4 pg (25.0-35.0) 10/06/16 07:08 MCHC 32.6 g/dL (31.0-37.0) 10/06/16 07:08 RDW 12.9 % (11.5-15.5) 10/06/16 07:08 Plt Count 233 k/uL (150-450) 10/06/16 07:08 Neutrophils % 84 % 10/06/16 07:08 Lymphocytes % 10 % 10/06/16 07:08 Monocytes % 3 % 10/06/16 07:08 Eosinophils % 2 % 10/06/16 07:08 Basophils % 0 % 10/06/16 07:08 Neutrophils # 7.2 k/uL (1.3-7.7) 10/06/16 07:08 Lymphocytes # 0.8 k/uL (1.0-4.8) L 10/06/16 07:08 Monocytes # 0.2 k/uL (0-1.0) 10/06/16 07:08 Eosinophils # 0.2 k/uL (0-0.7) 10/06/16 07:08 Basophils # 0.0 k/uL (0-0.2) 10/06/16 07:08 Hypochromasia Slight 10/04/16 07:57 ESR 49 mm/hr (0-15) H 10/05/16 05:49 Sodium 144 mmol/L (137-145) 10/08/16 12:15 Potassium 4.2 mmol/L (3.5-5.1) 10/08/16 12:15 Chloride 105 mmol/L (98-107) 10/08/16 12:15 Carbon Dioxide 29 mmol/L (22-30) 10/08/16 12:15 Anion Gap 10 mmol/L 10/08/16 12:15 BUN 38 mg/dL (9-20) H 10/08/16 12:15 Creatinine 1.51 mg/dL (0.66-1.25) H 10/08/16 12:15 Est GFR (MDRD) Af Amer 58 (>60 ml/min/1.73 sqM) 10/08/16 12:15 Est GFR (MDRD) Non-Af 48 (>60 ml/min/1.73 sqM) 10/08/16 12:15 Glucose 132 mg/dL (74-99) H 10/08/16 12:15 Plasma Lactic Acid [place] 1.1 mmol/L (0.7-2.0) 10/06/16 18:07 Calcium 8.9 mg/dL (8.4-10.2) 10/08/16 12:15 Phosphorus 4.4 mg/dL (2.5-4.5) 10/04/16 03:00 Magnesium 1.9 mg/dL (1.6-2.3) 10/04/16 03:00 Total Bilirubin 0.7 mg/dL (0.2-1.3) 10/08/16 12:15 AST 33 U/L (17-59) 10/08/16 12:15 ALT 15 U/L (21-72) L 10/08/16 12:15 Alkaline Phosphatase 53 U/L (38-126) 10/08/16 12:15 Total Creatine Kinase 83 U/L (55-170) 10/04/16 03:00 CK-MB (CK-2) 3.2 ng/mL (0.0-2.4) H* 10/04/16 03:00 CK-MB (CK-2) Rel Index 3.9 10/04/16 03:00 Troponin I 0.021 ng/mL (0.000-0.034) 10/04/16 03:00 C-Reactive Protein 33.9 mg/L (<10.0) H 10/05/16 05:49 NT-Pro-B Natriuret Pep 649 pg/mL 10/03/16 14:35 Prealbumin 7 mg/dL (18-36) L 10/05/16 05:49 Total Protein 7.3 g/dL (6.3-8.2) 10/08/16 12:15 Albumin 2.9 g/dL (3.5-5.0) L 10/08/16 12:15 Vancomycin Trough 16.2 ug/mL 10/05/16 05:49 Hepatitis A IgM Ab NEGATIVE 10/05/16 05:49 Hep Bs Antigen Negative 10/05/16 05:49 Hep B Core IgM Ab NEGATIVE 10/05/16 05:49 Hep C IgG Ab Reactive (Negative) 10/05/16 05:49 HIV-1 Ab Supplemental TNP 10/05/16 05:49 HIV-2 Ab Supplemental TNP 10/05/16 05:49 HIV 1&2 Ag/Ab, 4th Gen NONREAC (NON REAC) 10/05/16 05:49 Laboratory Results WBC 8.5 k/uL (3.8-10.6) 10/06/16 07:08 RBC 3.64 m/uL (4.30-5.90) L 10/06/16 07:08 Hgb 11.4 gm/dL (13.0-17.5) L 10/06/16 07:08 Hct 35.0 % (39.0-53.0) L 10/06/16 07:08 MCV 96.2 fL (80.0-100.0) 10/06/16 07:08 MCH 31.4 pg (25.0-35.0) 10/06/16 07:08 MCHC 32.6 g/dL (31.0-37.0) 10/06/16 07:08 RDW 12.9 % (11.5-15.5) 10/06/16 07:08 Plt Count 233 k/uL (150-450) 10/06/16 07:08 Neutrophils % 84 % 10/06/16 07:08 Lymphocytes % 10 % 10/06/16 07:08 Monocytes % 3 % 10/06/16 07:08 Eosinophils % 2 % 10/06/16 07:08 Basophils % 0 % 10/06/16 07:08 Neutrophils # 7.2 k/uL (1.3-7.7) 10/06/16 07:08 Lymphocytes # 0.8 k/uL (1.0-4.8) L 10/06/16 07:08 Monocytes # 0.2 k/uL (0-1.0) 10/06/16 07:08 Eosinophils # 0.2 k/uL (0-0.7) 10/06/16 07:08 Basophils # 0.0 k/uL (0-0.2) 10/06/16 07:08 Hypochromasia Slight 10/04/16 07:57 ESR 49 mm/hr (0-15) H 10/05/16 05:49 Sodium 144 mmol/L (137-145) 10/08/16 12:15 Potassium 4.2 mmol/L (3.5-5.1) 10/08/16 12:15 Chloride 105 mmol/L (98-107) 10/08/16 12:15 Carbon Dioxide 29 mmol/L (22-30) 10/08/16 12:15 Anion Gap 10 mmol/L 10/08/16 12:15 BUN 38 mg/dL (9-20) H 10/08/16 12:15 Creatinine 1.51 mg/dL (0.66-1.25) H 10/08/16 12:15 Est GFR (MDRD) Af Amer 58 (>60 ml/min/1.73 sqM) 10/08/16 12:15 Est GFR (MDRD) Non-Af 48 (>60 ml/min/1.73 sqM) 10/08/16 12:15 Glucose 132 mg/dL (74-99) H 10/08/16 12:15 Plasma Lactic Acid [place] 1.1 mmol/L (0.7-2.0) 10/06/16 18:07 Calcium 8.9 mg/dL (8.4-10.2) 10/08/16 12:15 Phosphorus 4.4 mg/dL (2.5-4.5) 10/04/16 03:00 Magnesium 1.9 mg/dL (1.6-2.3) 10/04/16 03:00 Total Bilirubin 0.7 mg/dL (0.2-1.3) 10/08/16 12:15 AST 33 U/L (17-59) 10/08/16 12:15 ALT 15 U/L (21-72) L 10/08/16 12:15 Alkaline Phosphatase 53 U/L (38-126) 10/08/16 12:15 Total Creatine Kinase 83 U/L (55-170) 10/04/16 03:00 CK-MB (CK-2) 3.2 ng/mL (0.0-2.4) H* 10/04/16 03:00 CK-MB (CK-2) Rel Index 3.9 10/04/16 03:00 Troponin I 0.021 ng/mL (0.000-0.034) 10/04/16 03:00 C-Reactive Protein 33.9 mg/L (<10.0) H 10/05/16 05:49 NT-Pro-B Natriuret Pep 649 pg/mL 10/03/16 14:35 Prealbumin 7 mg/dL (18-36) L 10/05/16 05:49 Total Protein 7.3 g/dL (6.3-8.2) 10/08/16 12:15 Albumin 2.9 g/dL (3.5-5.0) L 10/08/16 12:15 Vancomycin Trough 16.2 ug/mL 10/05/16 05:49 Hepatitis A IgM Ab NEGATIVE 10/05/16 05:49 Hep Bs Antigen Negative 10/05/16 05:49 Hep B Core IgM Ab NEGATIVE 10/05/16 05:49 Hep C IgG Ab Reactive (Negative) 10/05/16 05:49 HIV-1 Ab Supplemental TNP 10/05/16 05:49 HIV-2 Ab Supplemental TNP 10/05/16 05:49 HIV 1&2 Ag/Ab, 4th Gen NONREAC (NON REAC) 10/05/16 05:49 Microbiology 10/03/16 14:35 Blood Blood Culture - Preliminary No Growth after 120 hours 10/03/16 12:53 Leg - Right Gram Stain - Final 10/03/16 12:53 Leg - Right Wound Culture - Final Proteus mirabilis Staphylococcus aureus 10/03/16 14:35 Leg - Right Gram Stain - Final 10/03/16 14:35 Leg - Right Wound Culture - Final Proteus mirabilis Staphylococcus aureus Assessment and Plan (1) Bilateral lower leg cellulitis Narrative/Plan: 61-year-old male presents to the emergency center with bilateral lower extremity edema some discomfort and erythema. He developed some generalized erythema also that was not highly pruritic. Because he was feeling poorly he presented to the emergency center. There was evidence of a cellulitis especially the right lower extremity with a potential abscess posteriorly to the knee. Does not relate this is the area where he most recently injected heroin this past Saturday. Fortunately he is not having high-grade fevers, chills or rigors. he does have evidence of poor nutrition and will need nutritional supplements multivitamin also requested Current pulmonary laboratory results reveal evidence of gram-positive cocci staph aureus not MRSA as well as a gram-negative bacilli. This antibiotic therapy is alter to ceftriaxone. Will provide coverage for both current pulmonary pathogens. Local wound care are nonstick dressings. There is a minimal drainage at this time. Elevation limbs at rest is helpful. computed tomography scan was performed which shows evidence of abnormality to the left inguinal area. with lymphadenopathy and fluid. This time the patient has a history of active injection drug use. Appears to have hepatitis C, activity is not clear. This can be worked up in the outpatient setting as to the activity of his hepatitis C. HIV testing is negative. Culture is finalized [place] Proteus mirabilis as well as MSSA. We'll be able to finish treatment of his cellulitis to his right leg with cefuroxime 500 mg every 12 hours for a week at the time of his discharge. Local wound care will be with the silver foam adhesive dressing Control his lower extremity edema with some type of compression at the time of discharge will also be helpful. Compression hose. Status: Acute (2) Abscess of right leg Status: Acute (3) Uses drugs by injection Status: Acute
--- NOTE | 2016-10-08 21:06 | PN ---
CHIEF COMPLAINT: Cellulitis of the lower extremities and generalized anasarca with withdrawal symptoms. HISTORY OF PRESENT ILLNESS: This gentleman is doing much better. He is much less shaky and agitated today. Vital signs have returned to normal. PHYSICAL EXAMINATION: Chest is clear. Cardiac exam is normal. The abdomen is soft and non-tender. Extremities are much less edematous and swollen. IMPRESSION: 1. Cellulitis of the lower extremities. 2. Intravenous drug abuse. 3. Withdrawal syndrome. PLAN: Continue on current program and continue with IV fluids and antibiotics.
[2016-10-08] MEDS: LORazepam 1 MG TAB PO PRN (21:34)
[2016-10-08] MEDS: traZODone HCL 50 MG TAB PO SCH (21:35)
[2016-10-08] MEDS: cefTRIAXone 2,000 MG in SODIUM CHLORIDE 0.9% 100 ML IVPB SCH (21:45)
[2016-10-09 07:38] LABS: Basophils % (A) 0 %; CH 31.2; CHCM 32.8; Eosinophils # (A) 0.1 k/uL (0-0.7); Eosinophils % (A) 1 %; HCT 34.4 % (39.0-53.0); HDW 2.59; HGB 11.2 gm/dL (13.0-17.5); Luc # (Auto) 0.12; Luc % (Auto) 1; Lymphocytes % (A) 9 %; MCH 30.9 pg (25.0-35.0); MCHC 32.4 g/dL (31.0-37.0); MCV 95.4 fL (80.0-100.0); Monocytes # (A) 0.5 k/uL (0-1.0); Monocytes % (A) 5 %; Neutrophils # (A) 8.8 k/uL (1.3-7.7); Neutrophils % (A) 84 %; RBC 3.61 m/uL (4.30-5.90); RDW 13.4 % (11.5-15.5); WBC 10.5 k/uL (3.8-10.6); WBC (Perox) 10.65
[2016-10-09 07:57] LABS: Calcium 8.8 mg/dL (8.4-10.2); Potassium 3.8 mmol/L (3.5-5.1); Total Bilirubin 0.6 mg/dL (0.2-1.3)
[2016-10-09] MEDS: TIOTROPIUM 18 MCG/PUFF INHALER INHALATION SCH (08:22)
[2016-10-09] MEDS: SODIUM CHLORIDE 0.9% 1,000 ML IV SCH ×4 (08:31→15:30)
[2016-10-09] MEDS: ONDANSETRON 4 MG/2 ML VIAL IVP PRN (08:32)
[2016-10-09] MEDS: hydrALAZINE HCL 50 MG TAB PO SCH ×2 (08:33→16:15)
[2016-10-09] MEDS: MULTIVITAMINS, THERA 1 EACH TAB PO SCH (08:33)
[2016-10-09] MEDS: THIAMINE 100 MG TAB PO SCH ×2 (08:34→22:42)
[2016-10-09] MEDS: cloNIDine HCL 0.1 MG TAB PO SCH ×2 (08:34→22:42)
--- NOTE | 2016-10-09 11:12 | P.PN ---
Subjective 61-year-old male being seen this morning on rounds. Currently sitting on the edge of the bed. Patient is noted to have an improvement in the edema to the bilateral lower extremities. There is a dressing in place over the right posterior upper thigh. Below the knee RADU hose in place. Did note the patient had a low-grade temp this morning and 99.6. The white count is 10.5 up from 8.5 creatinine is improving it's down to 1.4 slight improvement in blood pressure 150/86 after starting Apresoline 50 twice a day infectious disease recommendations reviewed the wound culture is finalized Proteus Mirabella's as well as MSSA recommending completing a week of cefuroxime 500 mg every 12 hours the time of discharge per infectious diseases recommendations Objective - Vital Signs Vital signs: Vital Signs Temp 99.6 F 10/09/16 08:32 Pulse 99 10/09/16 08:32 Resp 18 10/09/16 08:32 BP 150/86 10/09/16 08:32 Pulse Ox 90 L 10/09/16 08:32 Intake & Output 10/08/16 10/09/16 10/09/16 18:59 06:59 18:59 Intake Total 1180 Output Total 225 225 Balance -225 955 Intake: Oral 1180 Output: Urine 225 225 Other: Voiding Method Toilet Toilet Toilet Urinal Urinal Urinal # Voids 2 - Exam Physical exam 61-year-old Afro-Kittitian male looking older than stated age sitting up on the edge of the bed denying dizziness lightheadedness shortness of breath or chest pain. There is decreased swelling noted to the bilateral lower extremities Lungs essentially clear adequate air movement sats on 3 L 90% Heart S1-S2 audible and regular Abdomen soft nursing reports patient has been having frequent loose stools is urinating no incontinent Extremities there is a posterior aspect of the right leg open no active dressing in place bilateral [id number] RADU hose on noted improvement in the edema to the bilateral lower legs. - Labs CBC & Chem 7: 10/09/16 06:45 10/09/16 06:45 Labs: Abnormal Lab Results - Last 24 Hours (Table) 10/08/16 10/09/16 10/09/16 Range/Units 12:15 06:45 06:45 RBC 3.61 L (4.30-5.90) m/uL Hgb 11.2 L (13.0-17.5) gm/dL Hct 34.4 L (39.0-53.0) % Neutrophils # 8.8 H (1.3-7.7) k/uL Chloride 108 H (98-107) mmol/L BUN 38 H 39 H (9-20) mg/dL Creatinine 1.51 H 1.46 H (0.66-1.25) mg/dL Glucose 132 H 104 H (74-99) mg/dL ALT 15 L (21-72) U/L Albumin 2.9 L 2.8 L (3.5-5.0) g/dL Assessment and Plan Plan: Impression Present on admission bilateral lower extremity cellulitis right posterior extremity History of active IV drug abuse last injected heroin within the week of admission to the emergency room Culture is finalized [place]ino[place] Proteus mirabilis as well as MSSA. From the right posterior upper thigh Present on admission cellulitis with Abscess right upper thigh History of hepatitis C Essential hypertension with episodes of hypertension urgency Acute renal failure suspect due to poor oral intake improving Status post incision and drainage done in the emergency room of the abscess right posterior upper thigh Present on admission 2 large abscesses noted to the posterior aspect right upper thigh of the distal aspect of the right upper leg suspect due to abscess positive wound culture Proteus Marabella's with MSSA Plan Repeat labs now Increase IV fluid 100 and hour Monitor blood pressure Will add Apresoline 50 3 times a day monitor the response Stop [id number] Benadryl secondary to sedation Continue with the CIWA protocol for impending DTs possible alcohol abuse Infectious disease recommendations appreciated at the time of discharge patient could be discharged on Ceftin 500 every 12 for a week Wound care nonstick dressing with Mauro wrap to the bilateral lower extremities keep elevated at all times cefuroxime 500 mg every 12 hours for a week at the time of discharge per infectious diseases recommendations The above dictated assessment and findings were discussed with dr john . Impression and the plan of care have been dictated as directed. Neena Clark nurse practitioner acting as a scribe for dr john.
--- NOTE | 2016-10-09 19:54 | PN ---
CHIEF COMPLAINT: Cellulitis in lower extremities and withdrawal symptoms. HISTORY OF PRESENT ILLNESS: The patient is doing a little bit better, temperature has gone down and the cellulitis is improving and he is doing much better. PHYSICAL EXAMINATION: CHEST: Clear. CARDIAC: Normal. ABDOMEN: Soft, nontender. IMPRESSION: 1. Cellulitis lower extremities. 2. Infected drug injection sites on the arms and legs. 3. Generalized edema - responding. PLAN: Continue on current program until he is stable enough to be discharged.
--- NOTE | 2016-10-09 21:15 | P.PN ---
Subjective Principal diagnosis: swelling and pain to the legs Pleasant 61-year-old -German male presents to hospital with bilateral lower extremity edema with evidence of open ulceration and drainage from the posterior aspect of his right leg. Because he was feeling poorly having increasing amounts of pain and swelling and presented to the emergency center. With this he was admitted to hospital for therapy and antibiotic treatment and infectious diseases consultation was requested. This pleasant gentleman to be modestly comfortable at this point in time. He is denying high-grade fevers, chills or rigors. Is having evidence of a somewhat generalized amount of erythema. It is not grossly pruritic. But on his legs it is bothering him mostly in the posterior aspect of the right leg where it is open and draining. He does have history of remote injection drug use. It is not current. He does not recall any specific injury to the right leg. Edema slightly improved. Drainage the right leg is improved. Neuro: More awake and alert today. Objective - Vital Signs Vital signs: Vital Signs Temp 97.4 F L 10/09/16 15:00 Pulse 98 10/09/16 15:00 Resp 16 10/09/16 15:00 BP 123/67 10/09/16 15:00 Pulse Ox 89 L 10/09/16 15:00 Intake & Output 10/09/16 10/09/16 10/10/16 06:59 18:59 06:59 Intake Total 1180 800 Output Total 225 Balance 955 800 Intake: IV 800 Sodium Chloride 0.9% 1, 800 000 ml @ 50 mls/hr IV . Q20H [facility]YLA Rx#:[id number] Oral 1180 Output: Urine 225 Other: Voiding Method Toilet Toilet Urinal Urinal # Voids 2 - Exam pleasant 61-year-old gentleman who looks older than his stated age. Is comfortable at this point in time. HEENT: Anicteric conjunctiva are pink and moist nasal mucosa grossly intact without significant lesions, there is no thrush.dentulous Neck: The neck is supple without significant lymphadenopathy or thyromegaly. Lungs: symmetrical air entry with expiratory crackles and wheezes that are scattered. No [place] bronchial sounds or egophony is noted Heart: Regular rate and rhythm with an audible S1-S2, no S3 no S4. There is no significant murmur click or rub, PMI was nondisplaced. Abdomen: Positive bowel sounds soft and nontender without palpable masses or organomegaly. There was no guarding or rebound. Extremities: extremities have the chronic changes of prior injection drug use. There is some chronic changes and swelling especially to the hands and the lower extremities. Multiple lesions to the skin are noted from the prior injection drug use as well as from prior garcía. The posterior aspect of the right leg posterior aspect of the knee has evidence of some small open areas without any significant drainage and nothing can be expressed from the site. Is mildly tender. There is some surrounding erythema. The erythema to the arms is considerably improved today. Is nonpruritic and nontender. Neuro: Much more awake today. Much less sedated. Is on less medications per the [facility] protocol - Labs CBC & Chem 7: 10/09/16 06:45 10/09/16 06:45 Labs: Abnormal Lab Results - Last 24 Hours (Table) 10/09/16 10/09/16 Range/Units 06:45 06:45 RBC 3.61 L (4.30-5.90) m/uL Hgb 11.2 L (13.0-17.5) gm/dL Hct 34.4 L (39.0-53.0) % Neutrophils # 8.8 H (1.3-7.7) k/uL Chloride 108 H (98-107) mmol/L BUN 39 H (9-20) mg/dL Creatinine 1.46 H (0.66-1.25) mg/dL Glucose 104 H (74-99) mg/dL Albumin 2.8 L (3.5-5.0) g/dL Laboratory Results WBC 10.5 k/uL (3.8-10.6) 10/09/16 06:45 RBC 3.61 m/uL (4.30-5.90) L 10/09/16 06:45 Hgb 11.2 gm/dL (13.0-17.5) L 10/09/16 06:45 Hct 34.4 % (39.0-53.0) L 10/09/16 06:45 MCV 95.4 fL (80.0-100.0) 10/09/16 06:45 MCH 30.9 pg (25.0-35.0) 10/09/16 06:45 MCHC 32.4 g/dL (31.0-37.0) 10/09/16 06:45 RDW 13.4 % (11.5-15.5) 10/09/16 06:45 Plt Count 223 k/uL (150-450) 10/09/16 06:45 Neutrophils % 84 % 10/09/16 06:45 Lymphocytes % 9 % 10/09/16 06:45 Monocytes % 5 % 10/09/16 06:45 Eosinophils % 1 % 10/09/16 06:45 Basophils % 0 % 10/09/16 06:45 Neutrophils # 8.8 k/uL (1.3-7.7) H 10/09/16 06:45 Lymphocytes # 1.0 k/uL (1.0-4.8) 10/09/16 06:45 Monocytes # 0.5 k/uL (0-1.0) 10/09/16 06:45 Eosinophils # 0.1 k/uL (0-0.7) 10/09/16 06:45 Basophils # 0.0 k/uL (0-0.2) 10/09/16 06:45 Hypochromasia Slight 10/04/16 07:57 ESR 49 mm/hr (0-15) H 10/05/16 05:49 Sodium 145 mmol/L (137-145) 10/09/16 06:45 Potassium 3.8 mmol/L (3.5-5.1) 10/09/16 06:45 Chloride 108 mmol/L (98-107) H 10/09/16 06:45 Carbon Dioxide 28 mmol/L (22-30) 10/09/16 06:45 Anion Gap 9 mmol/L 10/09/16 06:45 BUN 39 mg/dL (9-20) H 10/09/16 06:45 Creatinine 1.46 mg/dL (0.66-1.25) H 10/09/16 06:45 Est GFR (MDRD) Af Amer 60 (>60 ml/min/1.73 sqM) 10/09/16 06:45 Est GFR (MDRD) Non-Af 49 (>60 ml/min/1.73 sqM) 10/09/16 06:45 Glucose 104 mg/dL (74-99) H 10/09/16 06:45 Plasma Lactic Acid [place] 1.1 mmol/L (0.7-2.0) 10/06/16 18:07 Calcium 8.8 mg/dL (8.4-10.2) 10/09/16 06:45 Phosphorus 4.4 mg/dL (2.5-4.5) 10/04/16 03:00 Magnesium 1.9 mg/dL (1.6-2.3) 10/04/16 03:00 Total Bilirubin 0.6 mg/dL (0.2-1.3) 10/09/16 06:45 AST 27 U/L (17-59) 10/09/16 06:45 ALT 24 U/L (21-72) 10/09/16 06:45 Alkaline Phosphatase 38 U/L (38-126) 10/09/16 06:45 Total Creatine Kinase 83 U/L (55-170) 10/04/16 03:00 CK-MB (CK-2) 3.2 ng/mL (0.0-2.4) H* 10/04/16 03:00 CK-MB (CK-2) Rel Index 3.9 10/04/16 03:00 Troponin I 0.021 ng/mL (0.000-0.034) 10/04/16 03:00 C-Reactive Protein 33.9 mg/L (<10.0) H 10/05/16 05:49 NT-Pro-B Natriuret Pep 649 pg/mL 10/03/16 14:35 Prealbumin 7 mg/dL (18-36) L 10/05/16 05:49 Total Protein 7.0 g/dL (6.3-8.2) 10/09/16 06:45 Albumin 2.8 g/dL (3.5-5.0) L 10/09/16 06:45 Vancomycin Trough 16.2 ug/mL 10/05/16 05:49 Hepatitis A IgM Ab NEGATIVE 10/05/16 05:49 Hep Bs Antigen Negative 10/05/16 05:49 Hep B Core IgM Ab NEGATIVE 10/05/16 05:49 Hep C IgG Ab Reactive (Negative) 10/05/16 05:49 HIV-1 Ab Supplemental TNP 10/05/16 05:49 HIV-2 Ab Supplemental TNP 10/05/16 05:49 HIV 1&2 Ag/Ab, 4th Gen NONREAC (NON REAC) 10/05/16 05:49 Microbiology 10/03/16 14:35 Blood Blood Culture - Final No Growth after 144 hours 10/03/16 12:53 Leg - Right Gram Stain - Final 10/03/16 12:53 Leg - Right Wound Culture - Final Proteus mirabilis Staphylococcus aureus 10/03/16 14:35 Leg - Right Gram Stain - Final 10/03/16 14:35 Leg - Right Wound Culture - Final Proteus mirabilis Staphylococcus aureus Assessment and Plan (1) Bilateral lower leg cellulitis Narrative/Plan: 61-year-old male presents to the emergency center with bilateral lower extremity edema some discomfort and erythema. He developed some generalized erythema also that was not highly pruritic. Because he was feeling poorly he presented to the emergency center. There was evidence of a cellulitis especially the right lower extremity with a potential abscess posteriorly to the knee. Does not relate this is the area where he most recently injected heroin this past Saturday. Fortunately he is not having high-grade fevers, chills or rigors. he does have evidence of poor nutrition and will need nutritional supplements multivitamin also requested Current pulmonary laboratory results reveal evidence of gram-positive cocci staph aureus not MRSA as well as a gram-negative bacilli. This antibiotic therapy is alter to ceftriaxone. Will provide coverage for both current pulmonary pathogens. Local wound care are nonstick dressings. There is a minimal drainage at this time. Elevation limbs at rest is helpful. computed tomography scan was performed which shows evidence of abnormality to the left inguinal area. with lymphadenopathy and fluid. This time the patient has a history of active injection drug use. Appears to have hepatitis C, activity is not clear. This can be worked up in the outpatient setting as to the activity of his hepatitis C. HIV testing is negative. Culture is finalized Proteus mirabilis as well as MSSA. We'll be able to finish treatment of his cellulitis to his right leg with cefuroxime 500 mg every 12 hours for a week at the time of his discharge. Local wound care will be with the silver foam adhesive dressing Control his lower extremity edema with some type of compression at the time of discharge will also be helpful. Compression hose. Status: Acute (2) Abscess of right leg Status: Acute (3) Uses drugs by injection Status: Acute
[2016-10-09] MEDS: cefTRIAXone 2,000 MG in SODIUM CHLORIDE 0.9% 100 ML IVPB SCH (21:57)
[2016-10-09] MEDS: traZODone HCL 50 MG TAB PO SCH (22:44)
[2016-10-10] MEDS: hydrALAZINE HCL 50 MG TAB PO SCH ×4 (00:51→21:09)
[2016-10-10 08:16] LABS: Calcium 8.6 mg/dL (8.4-10.2); Potassium 3.9 mmol/L (3.5-5.1); Total Bilirubin 0.4 mg/dL (0.2-1.3); Total Protein 6.8 g/dL (6.3-8.2)
--- NOTE | 2016-10-10 08:36 | XR ---
EXAMINATION TYPE: XR chest 2V DATE OF EXAM: 10/10/2016 8:30 AM COMPARISON: 10/03/2016 TECHNIQUE: PA and lateral views submitted. HISTORY: Abnormal x-ray FINDINGS: There is right lower lobe infiltrate and small effusion. There is evidence of underlying chronic obst ructive pulmonary disease. Vague nodularity or infiltrate in the left upper lobe. IMPRESSION: 1. Bilateral areas of infiltrate and pleural effusion greater on the right. Infiltrate in the left is somewhat nodular in appearance.
[2016-10-10] MEDS: cloNIDine HCL 0.1 MG TAB PO SCH (08:40)
[2016-10-10] MEDS: THIAMINE 100 MG TAB PO SCH ×2 (08:40→21:08)
[2016-10-10] MEDS: MULTIVITAMINS, THERA 1 EACH TAB PO SCH (08:41)
[2016-10-10] MEDS: SODIUM CHLORIDE 0.9% 1,000 ML IV SCH ×2 (10:40)
[2016-10-10] MEDS: IPRATROPIUM-ALBUTEROL 3 ML NEB INHALATION SCH ×5 (11:35→19:56)
[2016-10-10] MEDS: TIOTROPIUM 18 MCG/PUFF INHALER INHALATION SCH (11:36)
--- NOTE | 2016-10-10 12:54 | P.PN ---
Subjective 61-year-old being seen this morning sitting up in a chair. Patient had an episode this morning where the pulse ox sats on room air did drop down into the 50. Oxygen titrated up to 4 L to keep the sats 90%. Respiratory treatment was initiated. Patient was started on incentive spirometer and a repeat chest x- ray was obtained bilateral areas of infiltrate greater on the right patients being treated for right lobe pneumonia is on Rocephin which is also treating the cellulitis involving the right leg. There is less swelling in the bilateral lower extremities below the knee RADU hose are in place on admission patient's CAT scan did show evidence of abnormality of the left inguinal area with right lower lobe atelectasis likely pneumonia Upon rechecking pulse ox on 2 L keeping a sat 94% patient was instructed on the use of the incentive spirometer Patient did have an echocardiogram done on admission that showed severe pulmonary hypertension with left ventricular systolic function normal with an EF between 55 and 60% Objective - Vital Signs Vital signs: Vital Signs Temp 98 F 10/10/16 07:00 Pulse 100 10/10/16 12:02 Resp 22 10/10/16 07:00 BP 115/67 10/10/16 07:00 Pulse Ox 100 10/10/16 08:14 Intake & Output 10/09/16 10/10/16 10/10/16 18:59 06:59 18:59 Intake Total 800 1480 Balance 800 1480 Intake: IV 800 300 Sodium Chloride 0.9% 1, 800 200 000 ml @ 50 mls/hr IV . Q20H TW[facility] Rx#:[id number] cefTRIAXone 2,000 mg In 100 Sodium Chloride 0.9% 100 ml @ 100 mls/hr IVPB HS TWYLA Rx#:[id number] Oral 1180 Other: Voiding Method Toilet Urinal Urinal Urinal # Voids 2 - Exam Physical exam 61-year-old Afro-[place]or[place] male looking older than stated age sitting up in a chair denying dizziness lightheadedness shortness of breath or chest pain. There is decreased swelling noted to the bilateral lower extremities Lungs posterior diminished at the bases no wheezing noted no cough noted no conversational dyspnea noted sats currently on 2 L greater than 94% Heart S1-S2 audible and regular Abdomen soft nursing reports patient has been having frequent loose stools is urinating no incontinent Extremities posterior aspect of the right leg open ulcerative area no active drainage noted dressing in place bilateral [id number] RADU hose on noted improvement in the edema to the bilateral lower legs. - Labs CBC & Chem 7: 10/09/16 06:45 10/10/16 07:31 Labs: Abnormal Lab Results - Last 24 Hours (Table) 10/10/16 Range/Units 07:31 BUN 39 H (9-20) mg/dL Creatinine 1.63 H (0.66-1.25) mg/dL Alkaline Phosphatase 37 L (38-126) U/L Albumin 2.8 L (3.5-5.0) g/dL Assessment and Plan Plan: Impression Present on admission bilateral lower extremity cellulitis right greater than the left with a nonhealing ulcerative area right posterior upper thigh History of active IV drug abuse last injected heroin within the week of admission to the emergency room Culture is finalized [place] Proteus mirabilis as well as MSSA. From the right posterior upper thigh Present on admission cellulitis with Abscess right upper thigh History of hepatitis C Essential hypertension with episodes of hypertension urgency Acute renal failure suspect due to poor oral intake improving Status post incision and drainage done in the emergency room of the abscess right posterior upper thigh Present on admission 2 large abscesses noted to the posterior aspect right upper thigh of the distal aspect of the right upper leg suspect due to abscess positive wound culture Proteus Mirabilis with MSSA An acute hypoxic episode respiratory failure pulse ox on room air down to 55% Plan Check a d-dimer now Increase IV fluid 100 and hour Monitor blood pressure Will add Apresoline 50 3 times a day monitor the response Stop [id number] Benadryl secondary to sedation Infectious disease recommendations appreciated at the time of discharge patient could be discharged on Ceftin 500 every 12 for a week Wound care nonstick dressing with Mauro wrap to the bilateral lower extremities keep elevated at all times cefuroxime 500 mg every 12 hours for a week at the time of discharge per infectious diseases recommendations Stop the clonidine The above dictated assessment and findings were discussed with dr john . Impression and the plan of care have been dictated as directed. Neena Clark nurse practitioner acting as a scribe for dr john.
[2016-10-10] MEDS ORDERED: HEPARIN SODIUM,PORCINE 5,000 UNIT/ML 1 ML VIAL SQ SCH (15:00)
[2016-10-10] MEDS ORDERED: HEPARIN SODIUM,PORCINE 5,000 UNIT/ML 1 ML VIAL IV PRN (15:54)
[2016-10-10] MEDS ORDERED: HEPARIN SODIUM,PORCINE/D5W PMX 25,000 UNIT in DEXTROSE/WATER 1 500ML.BAG IV SCH (16:00)
[2016-10-10 16:21] LABS: Basophils # (A) 0.1 k/uL (0-0.2); Basophils % (A) 1 %; CHCM 29.2; Eosinophils # (A) 0.3 k/uL (0-0.7); Eosinophils % (A) 3 %; HCT 40.9 % (39.0-53.0); HDW 2.54; HGB 12.4 gm/dL (13.0-17.5); Hypochromasia Marked; Luc # (Auto) 0.19; Luc % (Auto) 2; Lymphocytes # (A) 1.4 k/uL (1.0-4.8); Lymphocytes % (A) 17 %; MCH 31.3 pg (25.0-35.0); Macrocytosis Slight; Mean Platelet Volume 7.7; Monocytes # (A) 0.5 k/uL (0-1.0); Monocytes % (A) 6 %; Neutrophils % (A) 72 %; RBC 3.96 m/uL (4.30-5.90); RDW 13.8 % (11.5-15.5); WBC 8.4 k/uL (3.8-10.6)
[2016-10-10 16:23] LABS: MCHC 30.3 g/dL (31.0-37.0)
[2016-10-10 16:32] LABS: INR 1.2 (<1.1); Partial Thromboplastin Time 23.8 sec (22.0-30.0); Prothrombin Time 11.6 sec (9.0-12.0)
--- NOTE | 2016-10-10 16:47 | NM ---
EXAMINATION TYPE: NM pul vent and perfuse DATE OF EXAM: 10/10/2016 4:42 PM COMPARISON: NONE HISTORY: Shortness of breath TECHNIQUE: Utilizing inhalation of 71 mCi Tc 99m DTPA aerosol and intravenous injection of 5 mCi of Tc 99m MAA, ventilation and perfusion images are acquired post injection in multiple projections. FINDINGS: There is patchy distribution of radiotracer on the ventilation portion of the study compatible with C OPD. Several scattered matched defects are seen on the perfusion portion of the study without evidenc e for perfusion mismatch. IMPRESSION: Low to intermediate probability for pulmonary embolism.
--- NOTE | 2016-10-10 19:18 | P.PN ---
Subjective Principal diagnosis: swelling and pain to the legs Pleasant 61-year-old -[place] male presents to hospital with bilateral lower extremity edema with evidence of open ulceration and drainage from the posterior aspect of his right leg. Because he was feeling poorly having increasing amounts of pain and swelling and presented to the emergency center. With this he was admitted to hospital for therapy and antibiotic treatment and infectious diseases consultation was requested. This pleasant gentleman to be modestly comfortable at this point in time. He is denying high-grade fevers, chills or rigors. Is having evidence of a somewhat generalized amount of erythema. It is not grossly pruritic. But on his legs it is bothering him mostly in the posterior aspect of the right leg where it is open and draining. He does have history of remote injection drug use. It is not current. He does not recall any specific injury to the right leg. Edema slightly improved. Drainage the right leg is improved. Neuro: More awake and alert today. Objective - Vital Signs Vital signs: Vital Signs Temp 97.7 F 10/10/16 15:00 Pulse 88 10/10/16 19:03 Resp 16 10/10/16 15:00 BP 137/74 10/10/16 15:00 Pulse Ox 93 L 10/10/16 15:00 Intake & Output 10/10/16 10/10/16 10/11/16 06:59 18:59 06:59 Intake Total 1480 400 Balance 1480 400 Intake: IV 300 400 Sodium Chloride 0.9% 1, 200 400 000 ml @ 50 mls/hr IV . Q20H [facility] Rx#:[id number] cefTRIAXone 2,000 mg In 100 Sodium Chloride 0.9% 100 ml @ 100 mls/hr IVPB HS [facility] Rx#:[id number] Oral 1180 Other: Voiding Method Urinal Urinal # Voids 2 4 - Exam pleasant 61-year-old gentleman who looks older than his stated age. Is comfortable at this point in time. HEENT: Anicteric conjunctiva are pink and moist nasal mucosa grossly intact without significant lesions, there is no thrush.dentulous Neck: The neck is supple without significant lymphadenopathy or thyromegaly. Lungs: symmetrical air entry with expiratory crackles and wheezes that are scattered. No Stadium bronchial sounds or egophony is noted Heart: Regular rate and rhythm with an audible S1-S2, no S3 no S4. There is no significant murmur click or rub, PMI was nondisplaced. Abdomen: Positive bowel sounds soft and nontender without palpable masses or organomegaly. There was no guarding or rebound. Extremities: extremities have the chronic changes of prior injection drug use. There is some chronic changes and swelling especially to the hands and the lower extremities. Multiple lesions to the skin are noted from the prior injection drug use as well as from prior garcía. The posterior aspect of the right leg posterior aspect of the knee has evidence of some small open areas without any significant drainage and nothing can be expressed from the site. Is mildly tender. There is some surrounding erythema. The erythema to the arms is considerably improved today. Is nonpruritic and nontender. Neuro: Much more awake today. Much less sedated. Is on less medications per the [facility] protocol - Labs CBC & Chem 7: 10/10/16 07:30 10/10/16 07:31 Labs: Abnormal Lab Results - Last 24 Hours (Table) 10/10/16 10/10/16 10/10/16 Range/Units 07:30 07:31 13:25 RBC 3.96 L (4.30-5.90) m/uL Hgb 12.4 L (13.0-17.5) gm/dL MCV 103.2 H D (80.0-100.0) fL MCHC 30.3 L (31.0-37.0) g/dL D-Dimer 4.83 H (<0.60) mg/L FEU BUN 39 H (9-20) mg/dL Creatinine 1.63 H (0.66-1.25) mg/dL Alkaline Phosphatase 37 L (38-126) U/L Albumin 2.8 L (3.5-5.0) g/dL Laboratory Results WBC 8.4 k/uL (3.8-10.6) 10/10/16 07:30 RBC 3.96 m/uL (4.30-5.90) L 10/10/16 07:30 Hgb 12.4 gm/dL (13.0-17.5) L 10/10/16 07:30 Hct 40.9 % (39.0-53.0) 10/10/16 07:30 MCV 103.2 fL (80.0-100.0) H D 10/10/16 07:30 MCH 31.3 pg (25.0-35.0) 10/10/16 07:30 MCHC 30.3 g/dL (31.0-37.0) L 10/10/16 07:30 RDW 13.8 % (11.5-15.5) 10/10/16 07:30 Plt Count 248 k/uL (150-450) 10/10/16 07:30 Neutrophils % 72 % 10/10/16 07:30 Lymphocytes % 17 % 10/10/16 07:30 Monocytes % 6 % 10/10/16 07:30 Eosinophils % 3 % 10/10/16 07:30 Basophils % 1 % 10/10/16 07:30 Neutrophils # 6.0 k/uL (1.3-7.7) 10/10/16 07:30 Lymphocytes # 1.4 k/uL (1.0-4.8) 10/10/16 07:30 Monocytes # 0.5 k/uL (0-1.0) 10/10/16 07:30 Eosinophils # 0.3 k/uL (0-0.7) 10/10/16 07:30 Basophils # 0.1 k/uL (0-0.2) 10/10/16 07:30 Hypochromasia Marked 10/10/16 07:30 Macrocytosis Slight 10/10/16 07:30 ESR 49 mm/hr (0-15) H 10/05/16 05:49 PT 11.6 sec (9.0-12.0) 10/10/16 13:21 INR 1.2 (<1.1) 10/10/16 13:21 APTT 23.8 sec (22.0-30.0) 10/10/16 13:21 D-Dimer 4.83 mg/L FEU (<0.60) H 10/10/16 13:25 Sodium 143 mmol/L (137-145) 10/10/16 07:31 Potassium 3.9 mmol/L (3.5-5.1) 10/10/16 07:31 Chloride 107 mmol/L (98-107) 10/10/16 07:31 Carbon Dioxide 27 mmol/L (22-30) 10/10/16 07:31 Anion Gap 9 mmol/L 10/10/16 07:31 BUN 39 mg/dL (9-20) H 10/10/16 07:31 Creatinine 1.63 mg/dL (0.66-1.25) H 10/10/16 07:31 Est GFR (MDRD) Af Amer 53 (>60 ml/min/1.73 sqM) 10/10/16 07:31 Est GFR (MDRD) Non-Af 44 (>60 ml/min/1.73 sqM) 10/10/16 07:31 Glucose 97 mg/dL (74-99) 10/10/16 07:31 Plasma Lactic Acid Heber 1.1 mmol/L (0.7-2.0) 10/06/16 18:07 Calcium 8.6 mg/dL (8.4-10.2) 10/10/16 07:31 Phosphorus 4.4 mg/dL (2.5-4.5) 10/04/16 03:00 Magnesium 1.9 mg/dL (1.6-2.3) 10/04/16 03:00 Total Bilirubin 0.4 mg/dL (0.2-1.3) 10/10/16 07:31 AST 22 U/L (17-59) 10/10/16 07:31 ALT 24 U/L (21-72) 10/10/16 07:31 Alkaline Phosphatase 37 U/L (38-126) L 10/10/16 07:31 Total Creatine Kinase 83 U/L (55-170) 10/04/16 03:00 CK-MB (CK-2) 3.2 ng/mL (0.0-2.4) H* 10/04/16 03:00 CK-MB (CK-2) Rel Index 3.9 10/04/16 03:00 Troponin I 0.021 ng/mL (0.000-0.034) 10/04/16 03:00 C-Reactive Protein 33.9 mg/L (<10.0) H 10/05/16 05:49 NT-Pro-B Natriuret Pep 649 pg/mL 10/03/16 14:35 Prealbumin 7 mg/dL (18-36) L 10/05/16 05:49 Total Protein 6.8 g/dL (6.3-8.2) 10/10/16 07:31 Albumin 2.8 g/dL (3.5-5.0) L 10/10/16 07:31 Vancomycin Trough 16.2 ug/mL 10/05/16 05:49 Hepatitis A IgM Ab NEGATIVE 10/05/16 05:49 Hep Bs Antigen Negative 10/05/16 05:49 Hep B Core IgM Ab NEGATIVE 10/05/16 05:49 Hep C IgG Ab Reactive (Negative) 10/05/16 05:49 HIV-1 Ab Supplemental TNP 10/05/16 05:49 HIV-2 Ab Supplemental TNP 10/05/16 05:49 HIV 1&2 Ag/Ab, 4th Gen NONREAC (NON REAC) 10/05/16 05:49 Microbiology 10/03/16 14:35 Blood Blood Culture - Final No Growth after 144 hours 10/03/16 12:53 Leg - Right Gram Stain - Final 10/03/16 12:53 Leg - Right Wound Culture - Final Proteus mirabilis Staphylococcus aureus 10/03/16 14:35 Leg - Right Gram Stain - Final 10/03/16 14:35 Leg - Right Wound Culture - Final Proteus mirabilis Staphylococcus aureus Assessment and Plan (1) Bilateral lower leg cellulitis Narrative/Plan: 61-year-old male presents to the emergency center with bilateral lower extremity edema some discomfort and erythema. He developed some generalized erythema also that was not highly pruritic. Because he was feeling poorly he presented to the emergency center. There was evidence of a cellulitis especially the right lower extremity with a potential abscess posteriorly to the knee. Does not relate this is the area where he most recently injected heroin this past Saturday. Fortunately he is not having high-grade fevers, chills or rigors. he does have evidence of poor nutrition and will need nutritional supplements multivitamin also requested Current pulmonary laboratory results reveal evidence of gram-positive cocci staph aureus not MRSA as well as a gram-negative bacilli. This antibiotic therapy is alter to ceftriaxone. Will provide coverage for both current pulmonary pathogens. Local wound care are nonstick dressings. There is a minimal drainage at this time. Elevation limbs at rest is helpful. computed tomography scan was performed which shows evidence of abnormality to the left inguinal area. with lymphadenopathy and fluid. This time the patient has a history of active injection drug use. Appears to have hepatitis C, activity is not clear. This can be worked up in the outpatient setting as to the activity of his hepatitis C. HIV testing is negative. Culture is finalized Proteus mirabilis as well as MSSA. We'll be able to finish treatment of his cellulitis to his right leg with cefuroxime 500 mg every 12 hours for a week at the time of his discharge. Local wound care will be with the silver foam adhesive dressing Control his lower extremity edema with some type of compression at the time of discharge will also be helpful. Compression hose. Status: Acute (2) Abscess of right leg Status: Acute (3) Uses drugs by injection Status: Acute
--- NOTE | 2016-10-10 19:21 | PN ---
CHIEF COMPLAINT: Cellulitis of the lower extremities and generalized anasarca. HISTORY OF PRESENT ILLNESS: This gentleman has a little bit of a congested cough today. He has had no hemoptysis. REVIEW OF SYSTEMS: He has had no other complaints, but he does feel a bit short of breath and he is coughing. His potassium has gone up slightly, as have his renal functions. PHYSICAL EXAMINATION: He has rales at the bases. Cardiac exam is normal. The abdomen is soft and nontender. He still has quite a bit of edema of the face. IMPRESSION: 1. Decreased urinary output. 2. Renal failure. 3. Dropping pulse ox. 4. Cellulitis of the lower extremities. 5. Hyperkalemia. PLAN: 1. Repeat and follow renal function closely. 2. Continue with IV fluids and antibiotics.
[2016-10-10 20:10] VITALS: RESP 20; TEMP 97.5
[2016-10-10] MEDS: cefTRIAXone 2,000 MG in SODIUM CHLORIDE 0.9% 100 ML IVPB SCH (20:36)
--- NOTE | 2016-10-10 20:55 | US ---
EXAMINATION TYPE: US venous doppler duplex LE BI DATE OF EXAM: 10/10/2016 4:02 PM COMPARISON: NONE CLINICAL HISTORY: Rule out a DVT. SIDE PERFORMED: Bilateral VESSELS IMAGED: External Iliac Vein (EIV) Common Femoral Vein Deep Femoral Vein Greater Saphenous Vein * Femoral Vein Popliteal Vein Small Saphenous Vein * Proximal Calf Veins (* superficial vessels) IMPRESSION: 1. NEGATIVE FOR DEEP VENOUS THROMBOSIS, RIGHT LOWER EXTREMITY. 2. NEGATIVE FOR DEEP VENOUS THROMBOSIS, LEFT LOWER EXTREMITY.
[2016-10-10] MEDS: FAMOTIDINE 20 MG TAB PO SCH (21:09)
[2016-10-10] MEDS: traZODone HCL 50 MG TAB PO SCH (21:11)
[2016-10-10 22:12] LABS: MCV 103.2 fL (80.0-100.0)
[2016-10-11 06:27] LABS: Basophils % (A) 1 %; CH 30.7; CHCM 31.7; Eosinophils # (A) 0.4 k/uL (0-0.7); Eosinophils % (A) 4 %; HDW 2.55; HGB 10.6 gm/dL (13.0-17.5); Luc % (Auto) 2; Lymphocytes % (A) 11 %; MCH 31.4 pg (25.0-35.0); MCHC 32.2 g/dL (31.0-37.0); Mean Platelet Volume 7.8; Monocytes # (A) 0.5 k/uL (0-1.0); Monocytes % (A) 5 %; Neutrophils # (A) 7.5 k/uL (1.3-7.7); Neutrophils % (A) 78 %; RBC 3.39 m/uL (4.30-5.90); RDW 13.9 % (11.5-15.5); WBC 9.6 k/uL (3.8-10.6); WBC (Perox) 9.91
[2016-10-11 06:29] LABS: MCV 97.4 fL (80.0-100.0)
[2016-10-11 06:58] LABS: Calcium 8.8 mg/dL (8.4-10.2); Potassium 3.8 mmol/L (3.5-5.1); Total Bilirubin 0.3 mg/dL (0.2-1.3)
[2016-10-11] MEDS: TIOTROPIUM 18 MCG/PUFF INHALER INHALATION SCH (08:23)
[2016-10-11] MEDS: IPRATROPIUM-ALBUTEROL 3 ML NEB INHALATION SCH ×2 (08:23→12:42)
[2016-10-11 08:32] VITALS: BP 166/89
[2016-10-11] MEDS: THIAMINE 100 MG TAB PO SCH (09:24)
[2016-10-11] MEDS: FAMOTIDINE 20 MG TAB PO SCH (09:24)
[2016-10-11] MEDS: hydrALAZINE HCL 50 MG TAB PO SCH (09:24)
[2016-10-11] MEDS ORDERED: ASPIRIN 325 MG TAB PO SCH (10:30)
--- NOTE | 2016-10-11 11:40 | P.DS ---
Providers Date of admission: 10/03/16 16:27 Expected date of discharge: 10/11/16 Attending physician: Gus Aguilar Consults: 10/04/16 12:10 Consult Physician Urgent Consulting Provider: Michelet Vega Consult Reason/Comments: recs abx Do you want consulting provider notified?: Yes 10/10/16 12:43 Consult Physician Urgent Consulting Provider: Rona Gonzalez Consult Reason/Comments: Episode of hypoxia Do you want consulting provider notified?: Yes Primary care physician: Gus Aguilar [facility] Course: A 61-year-old Afro-[place] male presented on the day of admission to the emergency room with a chief complaint of developing an abscess to the back of both legs. Patient states that one had been treated with the other one had not. Patient states the abscess seem to be getting worse. Patient has a history of heroin abuse. Patient states he used IV heroine last on Saturday before coming into the emergency room on October 03. Patient was admitted to the services of the attending. Infectious disease consultation was requested. Patient was noted to be having generalized erythremia to the bilateral lower extremities with increase edema to the bilateral lower extremities. Patient was started on IV antibiotic therapy. In the emergency room chest x-ray suggest right lobe pneumonia patient was started on broad-spectrum antibiotics. In the emergency room an incision and drainage was done of the abscess on the right posterior upper thigh with wound cultures sent that did come back finalized as Proteus mirabilis as well as MSSA additionally patient's blood pressure was noted to be elevated patient's antihypertensive meds were adjusted for better blood pressure control. Is also concern 48 hours after being admitted with the patient was going through impending DTs and was started on CIWA protocol using Ativan. Patient states he will does not drink excessive alcohol patient did have an episode of dropping his pulse ox sats into the 50s was able to titrate back up into the 90s on the day of discharge patient did not qualify for room air. The course of the hospitalization the edema to the lower extremities significantly improving. Patient was instructed on use of an incentive spirometer. Did have a CAT scan of the chest abdomen pelvis done on admission which showed evidence of abnormality of the left inguinal area with right lower lobe atelectasis likely pneumonia. Patient did develop acute renal failure felt due to poor oral intake. Patient's creatinine was monitored closely after starting IV fluid was a noted improvement. This admission the patient did have an echocardiogram done that showed severe pulmonary hypertension with left ventricular systolic function normal EF between 55 and 60 %. Additionally the patient has a VQ scan which showed a low probability of a pulmonary emboli. Patient did have Doppler study of the bilateral lower extremities which did indicate compressions deferred due to visualized thrombus in the femoral vein lower and popliteal vein on the right leg on the left leg positive for DVT left E IV with certainty. Extending into the popliteal vein multiple lymph nodes were noted within the groin the largest 3.7 x 1 . A decision was made that the patient was at an increased risk to be placed on anticoagulation given patient's poor compliance with follow-up in taking medication increased risk of falls in a patient who has a history of IV heroin heroin drug abuse recommendations were one adult aspirin daily The day of discharge patient was felt to be clinically stable and appropriate proceed with a discharge case manager specialist did set up for home care to be following patient Impression discharge diagnosis Doppler to the bilateral lower extremities positive for a DVT bilaterally femoral vein extending into the popliteal vein Present on admission bilateral lower extremity cellulitis right greater than the left with a nonhealing ulcerative area right posterior upper thigh History of active IV drug abuse last injected heroin within the week of admission to the emergency room Culture is finalized [place] Proteus mirabilis as well as MSSA. From the right posterior upper thigh Present on admission cellulitis with Abscess right upper thigh History of hepatitis C Essential hypertension with episodes of hypertension urgency Acute renal failure suspect due to poor oral intake improving Status post incision and drainage done in the emergency room of the abscess right posterior upper thigh Present on admission 2 large abscesses noted to the posterior aspect right upper thigh of the distal aspect of the right upper leg suspect due to abscess positive wound culture Proteus Mirabilis with MSSA An acute hypoxic episode respiratory failure pulse ox on room air down to 55% resolved suspect due to atelectasis Issues of noncompliant with medication and follow-up care History of IV heroin drug use The above dictated assessment and findings were discussed with Dr. Lauren Robert and the plan of care have been dictated as directed. Neena Clark nurse practitioner acting as a scribe for dr aguilar]. Patient Condition at Discharge: Stable Plan - Discharge Summary New Discharge Prescriptions: Aspirin 325 mg PO DAILY #30 tab Cefuroxime Axetil [Ceftin] 500 mg PO BID #28 tab hydrALAZINE HCL [Apresoline] 50 mg PO TID #90 tab Discharge Medication List ALPRAZolam [Xanax] 0.25 mg PO TID PRN 10/03/16 [History] Albuterol Inhaler [Ventolin Hfa Inhaler] 2 puff INHALATION RT-QID PRN 10/03/16 [ History] Ensure 1 can PO W/BRKFST 10/03/16 [History] Ibuprofen [Motrin] 800 mg PO Q8HR PRN 10/03/16 [History] Multivitamin [Men's Multi-Vitamin] 1 tab PO DAILY 10/03/16 [History] Tiotropium 18 Mcg/Puff [Spiriva] 1 cap INHALATION RT-DAILY 10/03/16 [History] traZODone HCL 50 - 100 mg PO HS 10/03/16 [History] Aspirin 325 mg PO DAILY #30 tab 10/11/16 [Rx] Cefuroxime Axetil [Ceftin] 500 mg PO BID #28 tab 10/11/16 [Rx] hydrALAZINE HCL [Apresoline] 50 mg PO TID #90 tab 10/11/16 [Rx] Follow up Appointment(s)/Referral(s): Gus Aguilar MD [Primary Care Provider] - 1-2 days Activity/Diet/Wound Care/Special Instructions: Visiting Nurses [phone] Local wound care silver foam adhesive dressing applied daily. Bilateral below the knee RADU hose daily remove at bedtime Discharge Disposition: HOME WITH HOME HEALTH SERVICES
[2016-10-11 13:26] VITALS: PULSE 100
[2016-10-11] MEDS: SODIUM CHLORIDE 0.9% 1,000 ML IV SCH (13:30)
[2016-10-11] MEDS: MULTIVITAMINS, THERA 1 EACH TAB PO SCH (13:38)
--- NOTE | 2016-10-11 22:18 | PN ---
CHIEF COMPLAINT: Generalized anasarca and cellulitis in lower extremities. HISTORY OF PRESENT ILLNESS: The gentleman is doing well and he has had no new problems. He is being followed by infectious disease. He may be able to go home today. PHYSICAL EXAMINATION: CHEST: Clear. The cardiac exam is normal. ABDOMEN: Soft, nontender. IMPRESSION: 1. Cellulitis of both extremities. 2. Bilateral deep venous thromboses. 3. Generalized anasarca. 4. IVDA. 5. Renal failure. PLAN: He may be going home today and we will leave this up to infectious disease and this will be arranged by the nurse practitioner.
[2016-10-12] MEDS ORDERED: FAMOTIDINE 20 MG TAB PO SCH (09:00)
== END 2016-10-11 14:30 | disposition home health service (06) | DRG 602 ==
LOC: EC 11:37 → 4MS4W 16:27 → 5MS5E 17:37
PROVIDERS: ADMIT Family Medicine; ATTEND Family Medicine
PROC: 0H9HXZZ Drainage of Right Upper Leg Skin, External Approach (ICD-10-PCS; principal; 2016-10-03)
PROC: HZ2ZZZZ Detoxification Services for Substance Abuse Treatment (ICD-10-PCS; 2016-10-07)
DX: L02.415 Cutaneous abscess of right lower limb (principal); J96.01 Acute respiratory failure with hypoxia; N17.9 Acute kidney failure, unspecified; J18.9 Pneumonia, unspecified organism; E87.0 Hyperosmolality and hypernatremia; J98.11 Atelectasis; J44.0 Chronic obstructive pulmonary disease with (acute) lower respiratory infection; I82.431 Acute embolism and thrombosis of right popliteal vein; I82.432 Acute embolism and thrombosis of left popliteal vein; F10.239 Alcohol dependence with withdrawal, unspecified; I27.2 Other secondary pulmonary hypertension; E87.5 Hyperkalemia; L03.115 Cellulitis of right lower limb; L03.116 Cellulitis of left lower limb; B19.20 Unspecified viral hepatitis C without hepatic coma; I16.0 Hypertensive urgency; B95.61 Methicillin susceptible Staphylococcus aureus infection as the cause of diseases classified elsewhere; B96.4 Proteus (mirabilis) (morganii) as the cause of diseases classified elsewhere; R00.0 Tachycardia, unspecified; F11.10 Opioid abuse, uncomplicated; R59.0 Localized enlarged lymph nodes; I10 Essential (primary) hypertension; R60.1 Generalized edema; R50.9 Fever, unspecified; M54.9 Dorsalgia, unspecified; G89.29 Other chronic pain; M54.2 Cervicalgia; R23.3 Spontaneous ecchymoses; F17.210 Nicotine dependence, cigarettes, uncomplicated; Z91.14 Patient's other noncompliance with medication regimen; Z79.1 Long term (current) use of non-steroidal anti-inflammatories (NSAID); Z79.899 Other long term (current) drug therapy; Z82.49 Family history of ischemic heart disease and other diseases of the circulatory system; Z71.51 Drug abuse counseling and surveillance of drug abuser; Z71.3 Dietary counseling and surveillance; Z91.19 Patient's noncompliance with other medical treatment and regimen; Z71.6 Tobacco abuse counseling; Z91.81 History of falling
CPT/HCPCS: 10060; 36415; 71020; 71260; 74177; 78582; 80053; 80074; 80202; 82272; 82550; 82553; 83605; 83735; 83880; 84100; 84134; 84484; 85025; 85379; 85610; 85652; 85730; 86140; 87040; 87070; 87077; 87186; 87205; 87389; 93005; 93306; 93970; 94640; 94760; 96361; 96365; 96366; 99285

== ENCOUNTER 2016-10-18 08:15 | Inpatient (IN) | payer OTHER ==
[2016-10-18] MEDS ORDERED: methylPREDNISolone SOD SUCCI 125 MG/2 ML VIAL IV STA (08:26)
[2016-10-18] MEDS ORDERED: ALBUTEROL NEBULIZED 2.5 MG/3 ML INHALATION STA (08:26)
[2016-10-18] MEDS ORDERED: IPRATROPIUM 0.5 MG/2.5 ML NEBU INHALATION STA (08:26)
[2016-10-18] MEDS ORDERED: DILTIAZEM 5 MG/ML 5 ML VIAL IVP STA (08:27)
--- NOTE | 2016-10-18 08:51 | XR ---
EXAMINATION TYPE: XR chest 1V portable DATE OF EXAM: 10/18/2016 8:37 AM COMPARISON: 10/10/2016 HISTORY: Shortness of breath TECHNIQUE: Single frontal view of the chest is obtained. FINDINGS: Right-sided consolidation and and pleural effusion is noted appears to be essentially stab le. Left lung clear. No pneumothorax. Underlying COPD suspected. IMPRESSION: 1. Stable right lower lobe infiltrate and small effusion
--- NOTE | 2016-10-18 09:27 | ED ---
General Adult HPI - General Chief complaint: Altered Mental Status Stated complaint: CHF, ALTERED MENTAL STATUS Time Seen by Provider: 10/18/16 08:22 Source: patient, RN notes reviewed, old records reviewed Mode of arrival: ambulatory Limitations: altered mental status - History of Present Illness Initial comments: This is a 61-year-old male here for evaluation. This patient presents for evaluation of shortness of breath altered mental status and unresponsiveness. Per family breathing issues began last night, patient suffers from COPD CHF. Patient also suffers from history of sudden severe IV drug abuse. No fevers, no family at bedside to give history, patient unable to give accurate history secondary to significant clinical state, patient history is obtained by EMS - Related Data Home Medications Medication Instructions Recorded Confirmed ALPRAZolam [Xanax] 0.25 mg PO TID PRN 10/03/16 10/18/16 Albuterol Inhaler [Ventolin Hfa 2 puff INHALATION RT-QID PRN 10/03/16 10/18/16 Inhaler] Ensure 1 can PO W/BRKFST 10/03/16 10/18/16 Ibuprofen [Motrin] 800 mg PO Q8HR PRN 10/03/16 10/18/16 Multivitamin [Men's Multi-Vitamin] 1 tab PO DAILY 10/03/16 10/18/16 Tiotropium 18 Mcg/Puff [Spiriva] 1 cap INHALATION RT-DAILY 10/03/16 10/18/16 traZODone HCL 100 mg PO HS 10/03/16 10/18/16 Previous Rx's Medication Instructions Recorded Aspirin 325 mg PO DAILY #30 tab 10/11/16 Cefuroxime Axetil [Ceftin] 500 mg PO BID #28 tab 10/11/16 hydrALAZINE HCL [Apresoline] 50 mg PO TID #90 tab 10/11/16 Allergies Allergy/AdvReac Type Severity Reaction Status Date / Time No Known Allergies Allergy Verified 10/03/16 12:22 Review of Systems ROS Statement: Those systems with pertinent positive or pertinent negative responses have been documented in the HPI. ROS Other: All systems not noted in ROS Statement are negative. Past Medical History Past Medical History: COPD Additional Past Medical History / Comment(s): IV drug abuse, CHRONIC NECK/BACK PAIN, SINUS PROBLEMS History of Any Multi-Drug Resistant Organisms: None Reported Past Surgical History: No Surgical Hx Reported Additional Past Surgical History / Comment(s): COLONOSCOPY Past Anesthesia/Blood Transfusion Reactions: No Reported Reaction Past Psychological History: No Psychological Hx Reported Additional Psychological History / Comment(s): Single but lives with his significant other. 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 No experience. No extensive travel. No animal exposures. Positive tobacco use. Denies significant alcohol use. Extensive history of recreational drug use with heroin but it is not active. Smoking Status: Current every day smoker Past Alcohol Use History: None Reported Additional Past Alcohol Use History / Comment(s): STARTED SMOKING AT AGE 17 USED TO SMOKE 1-2 PPD CURRENTLY DOWN TO 3-4 CIG PER DAY. SMOKING CESSATION BOOKLET GIVEN TO PT. Past Drug Use History: Heroin, Marijuana Additional Drug Use History / Comment(s): PT STATED IN PAST USED( MARIJUANA, MESCULINE-NONE NOW). CURRENTLY USES HEROIN .STATED LAST USED HEROIN ON Saturday09-30-16 - Past Family History Father Family Medical History: Myocardial Infarction ([place]) Mother Additional Family Medical History / Comment(s): BRAIN ANEURYSM General Exam Limitations: altered mental status General appearance: alert, anxious, in distress Head exam: Present: atraumatic, normocephalic, normal inspection Eye exam: Present: normal appearance, PERRL, EOMI. Absent: scleral icterus, conjunctival injection, periorbital swelling ENT exam: Present: mucous membranes dry Neck exam: Present: normal inspection. Absent: tenderness, meningismus, lymphadenopathy Respiratory exam: Present: normal lung sounds bilaterally, respiratory distress , wheezes, accessory muscle use, decreased breath sounds, prolonged expiratory. Absent: rales, rhonchi, stridor Cardiovascular Exam: Present: tachycardia, irregular rhythm, normal heart sounds. Absent: systolic murmur, diastolic murmur, rubs, gallop, clicks GI/Abdominal exam: Present: soft, normal bowel sounds. Absent: distended, tenderness, guarding, rebound, rigid Extremities exam: Present: normal inspection, full ROM, normal capillary refill. Absent: tenderness, pedal edema, joint swelling, calf tenderness Back exam: Present: normal inspection Neurological exam: Present: alert, oriented X3, CN II-XII intact Psychiatric exam: Present: normal affect, normal mood Skin exam: Present: warm, dry, intact, normal color. Absent: rash Course Vital Signs 10/18/16 10/18/16 10/18/16 08:23 08:35 08:53 Temperature Pulse Rate 144 H 112 H 113 H Respiratory 18 Rate Blood Pressure 102/58 O2 Sat by Pulse 96 Oximetry 10/18/16 10/18/16 10/18/16 09:38 10:00 10:28 Temperature 96 F L 96 F L Pulse Rate 112 H 104 H 103 H Respiratory 14 14 Rate Blood Pressure 105/74 121/71 O2 Sat by Pulse 98 99 Oximetry - Reevaluation(s) Reevaluation #1: 10/18/16 10:45 Patient with no improvement after initial breathing treatment, decision made the patient placed patient on BiPAP 10/18/16 10:45 Patient is having significant success on BiPAP increased alertness and impression improved mental status Reevaluation #2: 10/18/16 10:45 Patient initially presented in A. fib with RVR which improved with pulse oxygenation and respiratory support Reevaluation #3: 10/18/16 11:42 2 attempts are made at Central line placement both right IJ and left groin, both were unsuccessful, patient has IO placement in left tibia proximal EKG Findings - EKG Comments: EKG Findings:: EKG shows A. fib with RVR rate 133, QRS 62, QTC 485 Procedures - Central Line Placement Right IJ Consent Obtained: verbal consent Time Out Performed: Yes Central Line Prep: Povidone-Iodine 1%, Chlorhexidine scrub Local Anesthesia Used: Lidocaine 1% Ultrasound Used for Placement: Yes Central Line Lumen Inserted: triple Complications: other (2 attempts made both right IJ as well as left femoral were unsuccessful for central line placement) Left Femoral Time Out Performed: Yes Patient Placed on Monitor/Pulse Ox: Yes MD Prep: mask, gown, gloves Central Line Prep: Povidone-Iodine 1% Local Anesthesia Used: Lidocaine 1% Ultrasound Used for Placement: Yes Central Line Lumen Inserted: triple Complications: other (Failure) Medical Decision Making - Lab Data Result diagrams: 10/18/16 09:24 10/18/16 09:24 Lab Results 10/18/16 10/18/16 10/18/16 Range/Units 09:24 09:24 09:24 WBC 9.0 (3.8-10.6) k/uL RBC 3.54 L (4.30-5.90) m/uL Hgb 11.0 L (13.0-17.5) gm/dL Hct 35.5 L (39.0-53.0) % MCV 100.3 H (80.0-100.0) fL MCH 31.0 (25.0-35.0) pg MCHC 30.9 L (31.0-37.0) g/dL RDW 14.0 (11.5-15.5) % Plt Count 271 (150-450) k/uL Neutrophils % 83 % Lymphocytes % 7 % Monocytes % 5 % Eosinophils % 2 % Basophils % 2 % Neutrophils # 7.5 (1.3-7.7) k/uL Lymphocytes # 0.6 L (1.0-4.8) k/uL Monocytes # 0.4 (0-1.0) k/uL Eosinophils # 0.2 (0-0.7) k/uL Basophils # 0.1 (0-0.2) k/uL Hypochromasia Moderate Macrocytosis Slight PT (9.0-12.0) sec INR (<1.1) APTT (22.0-30.0) sec Sample Site ABG pH (7.35-7.45) ABG pCO2 (35-45) mmHg ABG pO2 (83-108) mmHg ABG HCO3 (21-25) mmol/L ABG Total CO2 (19-24) mmol/L ABG O2 Saturation (94-97) % ABG Base Excess mmol/L FiO2 % Sodium 146 H (137-145) mmol/L Potassium 4.6 (3.5-5.1) mmol/L Chloride 105 (98-107) mmol/L Carbon Dioxide 32 H (22-30) mmol/L Anion Gap 9 mmol/L BUN 26 H (9-20) mg/dL Creatinine 1.92 H (0.66-1.25) mg/dL Est GFR (MDRD) Af Amer 44 (>60 ml/min/1.73 sqM) Est GFR (MDRD) Non-Af 36 (>60 ml/min/1.73 sqM) Glucose 132 H (74-99) mg/dL Calcium 9.2 (8.4-10.2) mg/dL Phosphorus 6.5 H (2.5-4.5) mg/dL Magnesium 1.5 L (1.6-2.3) mg/dL Total Bilirubin 0.5 (0.2-1.3) mg/dL AST 46 (17-59) U/L ALT 28 (21-72) U/L Alkaline Phosphatase 55 (38-126) U/L Total Creatine Kinase 125 (55-170) U/L CK-MB (CK-2) 7.5 H* (0.0-2.4) ng/mL CK-MB (CK-2) Rel Index 6.0 Troponin I 0.061 H* (0.000-0.034) ng/mL NT-Pro-B Natriuret Pep pg/mL Total Protein 7.6 (6.3-8.2) g/dL Albumin 3.3 L (3.5-5.0) g/dL Salicylates 2.2 mg/dL Urine Opiates Screen (NotDetected) Ur Oxycodone Screen (NotDetected) Urine Methadone Screen (NotDetected) Ur Propoxyphene Screen (NotDetected) Acetaminophen <10.0 ug/mL Ur Barbiturates Screen (NotDetected) U Tricyclic Antidepress (NotDetected) Ur Phencyclidine Scrn (NotDetected) Ur Amphetamines Screen (NotDetected) U Methamphetamines Scrn (NotDetected) U Benzodiazepines Scrn (NotDetected) Urine Cocaine Screen (NotDetected) U Marijuana (THC) Screen (NotDetected) Serum Alcohol <10 mg/dL 10/18/16 10/18/16 10/18/16 Range/Units 09:24 09:24 09:25 WBC (3.8-10.6) k/uL RBC (4.30-5.90) m/uL Hgb (13.0-17.5) gm/dL Hct (39.0-53.0) % MCV (80.0-100.0) fL MCH (25.0-35.0) pg MCHC (31.0-37.0) g/dL RDW (11.5-15.5) % Plt Count (150-450) k/uL Neutrophils % % Lymphocytes % % Monocytes % % Eosinophils % % Basophils % % Neutrophils # (1.3-7.7) k/uL Lymphocytes # (1.0-4.8) k/uL Monocytes # (0-1.0) k/uL Eosinophils # (0-0.7) k/uL Basophils # (0-0.2) k/uL Hypochromasia Macrocytosis PT 11.5 (9.0-12.0) sec INR 1.1 (<1.1) APTT 24.4 (22.0-30.0) sec Sample Site rbrach ABG pH 7.15 L* (7.35-7.45) ABG pCO2 97 H* (35-45) mmHg ABG pO2 188 H (83-108) mmHg ABG HCO3 33 H (21-25) mmol/L ABG Total CO2 36 H (19-24) mmol/L ABG O2 Saturation 99.0 H (94-97) % ABG Base Excess 4.5 mmol/L FiO2 100 % Sodium (137-145) mmol/L Potassium (3.5-5.1) mmol/L Chloride (98-107) mmol/L Carbon Dioxide (22-30) mmol/L Anion Gap mmol/L BUN (9-20) mg/dL Creatinine (0.66-1.25) mg/dL Est GFR (MDRD) Af Amer (>60 ml/min/1.73 sqM) Est GFR (MDRD) Non-Af (>60 ml/min/1.73 sqM) Glucose (74-99) mg/dL Calcium (8.4-10.2) mg/dL Phosphorus (2.5-4.5) mg/dL Magnesium (1.6-2.3) mg/dL Total Bilirubin (0.2-1.3) mg/dL AST (17-59) U/L ALT (21-72) U/L Alkaline Phosphatase (38-126) U/L Total Creatine Kinase (55-170) U/L CK-MB (CK-2) (0.0-2.4) ng/mL CK-MB (CK-2) Rel Index Troponin I (0.000-0.034) ng/mL NT-Pro-B Natriuret Pep 1590 pg/mL Total Protein (6.3-8.2) g/dL Albumin (3.5-5.0) g/dL Salicylates mg/dL Urine Opiates Screen (NotDetected) Ur Oxycodone Screen (NotDetected) Urine Methadone Screen (NotDetected) Ur Propoxyphene Screen (NotDetected) Acetaminophen ug/mL Ur Barbiturates Screen (NotDetected) U Tricyclic Antidepress (NotDetected) Ur Phencyclidine Scrn (NotDetected) Ur Amphetamines Screen (NotDetected) U Methamphetamines Scrn (NotDetected) U Benzodiazepines Scrn (NotDetected) Urine Cocaine Screen (NotDetected) U Marijuana (THC) Screen (NotDetected) Serum Alcohol mg/dL 10/18/16 Range/Units 09:36 WBC (3.8-10.6) k/uL RBC (4.30-5.90) m/uL Hgb (13.0-17.5) gm/dL Hct (39.0-53.0) % MCV (80.0-100.0) fL MCH (25.0-35.0) pg MCHC (31.0-37.0) g/dL RDW (11.5-15.5) % Plt Count (150-450) k/uL Neutrophils % % Lymphocytes % % Monocytes % % Eosinophils % % Basophils % % Neutrophils # (1.3-7.7) k/uL Lymphocytes # (1.0-4.8) k/uL Monocytes # (0-1.0) k/uL Eosinophils # (0-0.7) k/uL Basophils # (0-0.2) k/uL Hypochromasia Macrocytosis PT (9.0-12.0) sec INR (<1.1) APTT (22.0-30.0) sec Sample Site ABG pH (7.35-7.45) ABG pCO2 (35-45) mmHg ABG pO2 (83-108) mmHg ABG HCO3 (21-25) mmol/L ABG Total CO2 (19-24) mmol/L ABG O2 Saturation (94-97) % ABG Base Excess mmol/L FiO2 % Sodium (137-145) mmol/L Potassium (3.5-5.1) mmol/L Chloride (98-107) mmol/L Carbon Dioxide (22-30) mmol/L Anion Gap mmol/L BUN (9-20) mg/dL Creatinine (0.66-1.25) mg/dL Est GFR (MDRD) Af Amer (>60 ml/min/1.73 sqM) Est GFR (MDRD) Non-Af (>60 ml/min/1.73 sqM) Glucose (74-99) mg/dL Calcium (8.4-10.2) mg/dL Phosphorus (2.5-4.5) mg/dL Magnesium (1.6-2.3) mg/dL Total Bilirubin (0.2-1.3) mg/dL AST (17-59) U/L ALT (21-72) U/L Alkaline Phosphatase (38-126) U/L Total Creatine Kinase (55-170) U/L CK-MB (CK-2) (0.0-2.4) ng/mL CK-MB (CK-2) Rel Index Troponin I (0.000-0.034) ng/mL NT-Pro-B Natriuret Pep pg/mL Total Protein (6.3-8.2) g/dL Albumin (3.5-5.0) g/dL Salicylates mg/dL Urine Opiates Screen Detected H (NotDetected) Ur Oxycodone Screen Not Detected (NotDetected) Urine Methadone Screen Detected H (NotDetected) Ur Propoxyphene Screen Not Detected (NotDetected) Acetaminophen ug/mL Ur Barbiturates Screen Not Detected (NotDetected) U Tricyclic Antidepress Not Detected (NotDetected) Ur Phencyclidine Scrn Not Detected (NotDetected) Ur Amphetamines Screen Not Detected (NotDetected) U Methamphetamines Scrn Not Detected (NotDetected) U Benzodiazepines Scrn Detected H (NotDetected) Urine Cocaine Screen Not Detected (NotDetected) U Marijuana (THC) Screen Not Detected (NotDetected) Serum Alcohol mg/dL - Radiology Data Radiology results: report reviewed (Chest x-ray does show stable infiltrate), image reviewed Critical Care Time Critical Care Time: Yes Total Critical Care Time: 65 Disposition Clinical Impression: Altered mental status, Atrial fibrillation with RVR, COPD exacerbation, Hypoxia , Acute respiratory failure Disposition: ADMITTED IP TO THIS [facility] Condition: Serious
[2016-10-18] MEDS ORDERED: SODIUM CHLORIDE 0.9% 1,000 ML IV ONE (09:42)
[2016-10-18 09:43] LABS: Basophils # (A) 0.1 k/uL (0-0.2); Basophils % (A) 2 %; CH 30.4; CHCM 30.5; Eosinophils # (A) 0.2 k/uL (0-0.7); Eosinophils % (A) 2 %; HCT 35.5 % (39.0-53.0); HDW 2.64; Hypochromasia Moderate; Luc # (Auto) 0.16; Luc % (Auto) 2; Lymphocytes # (A) 0.6 k/uL (1.0-4.8); Lymphocytes % (A) 7 %; MCHC 30.9 g/dL (31.0-37.0); MCV 100.3 fL (80.0-100.0); Macrocytosis Slight; Mean Platelet Volume 7.3; Monocytes # (A) 0.4 k/uL (0-1.0); Monocytes % (A) 5 %; Neutrophils # (A) 7.5 k/uL (1.3-7.7); Neutrophils % (A) 83 %; RBC 3.54 m/uL (4.30-5.90); WBC (Perox) 9.37
[2016-10-18 09:51] LABS: ALT 28 U/L (21-72); AST 46 U/L (17-59); Acetaminophen <10.0 ug/mL; Alcohol <10 mg/dL; Alkaline Phosphatase 55 U/L (38-126); Anion Gap 9 mmol/L; Blood Urea Nitrogen 26 mg/dL (9-20); Calcium 9.2 mg/dL (8.4-10.2); Carbon Dioxide 32 mmol/L (22-30); Chloride 105 mmol/L (98-107); Glucose 132 mg/dL (74-99); INR 1.1 (<1.1); Magnesium 1.5 mg/dL (1.6-2.3); Non-African American GFR(MDRD) 36 (>60 ml/min/1.73 sqM); Partial Thromboplastin Time 24.4 sec (22.0-30.0); Phosphorous 6.5 mg/dL (2.5-4.5); Potassium 4.6 mmol/L (3.5-5.1); Prothrombin Time 11.5 sec (9.0-12.0); Salicylate 2.2 mg/dL; Sodium 146 mmol/L (137-145); Total Bilirubin 0.5 mg/dL (0.2-1.3); Total Protein 7.6 g/dL (6.3-8.2)
[2016-10-18 09:52] LABS: ABG HCO3 33 mmol/L (21-25); ABG PCO2 97 mmHg (35-45); ABG PH 7.15 (7.35-7.45); ABG PO2 188 mmHg (83-108)
[2016-10-18 09:53] LABS: ABG Base Excess 4.5 mmol/L; ABG TCO2 36 mmol/L (19-24)
[2016-10-18 10:18] LABS: Creatine Kinase MB 7.5 ng/mL (0.0-2.4)
[2016-10-18 10:19] LABS: Troponin I 0.061 ng/mL (0.000-0.034)
[2016-10-18] MEDS ORDERED: methylPREDNISolone SOD SUCCI 125 MG/2 ML VIAL IV SCH (12:00)
[2016-10-18] MEDS ORDERED: IPRATROPIUM-ALBUTEROL 3 ML NEB INHALATION SCH (13:30)
[2016-10-18] MEDS: IPRATROPIUM-ALBUTEROL 3 ML NEB INHALATION SCH ×3 (13:30→19:58)
[2016-10-18] MEDS: SODIUM CHLORIDE 0.9% 1,000 ML IV SCH ×2 (13:31→22:29)
[2016-10-18] MEDS ORDERED: IV VANCOMYCIN PER PHARMACY 1 EACH MISC MISCELLANE PRN (14:16)
--- NOTE | 2016-10-18 14:27 | P.CNPUL ---
History of Present Illness Consult date: 10/18/16 Reason for consult: dyspnea, COPD, hypoxemia Chief complaint: Found unresponsive History of present illness: This is a 61-year-old gentleman who presented to the emergency department via EMS. The family found the patient at home unresponsive. No family is currently at bedside and further history is difficult to obtain. The rest of the history is obtained from the EMR. The patient had an unknown down time. He was found to have respiratory acidosis and was placed on BiPAP. He also has acute renal failure. He has a history of COPD and CHF as well as hepatitis C. He was recently admitted and found to have bilateral lower extremity DVTs. The patient is currently arousable and conversational. He knows he is at [facility] and that it is 2016. He states he does not know what happened or why he came here. He states he has not used drugs intravenously since August. The patient was recently admitted on 10/05/2016 and discharged on 09/2016. He was treated for lower extremity cellulitis. Review of Systems All systems: negative Past Medical History Past Medical History: COPD Additional Past Medical History / Comment(s): IV drug abuse, CHRONIC NECK/BACK PAIN, SINUS PROBLEMS History of Any Multi-Drug Resistant Organisms: None Reported Past Surgical History: No Surgical Hx Reported Additional Past Surgical History / Comment(s): COLONOSCOPY Past Anesthesia/Blood Transfusion Reactions: No Reported Reaction Past Psychological History: No Psychological Hx Reported Additional Psychological History / Comment(s): Single but lives with his significant other. 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 No experience. No extensive travel. No animal exposures. Positive tobacco use. Denies significant alcohol use. Extensive history of recreational drug use with heroin but it is not active. Smoking Status: Current every day smoker Past Alcohol Use History: None Reported Additional Past Alcohol Use History / Comment(s): STARTED SMOKING AT AGE 17 USED TO SMOKE 1-2 PPD CURRENTLY DOWN TO 3-4 CIG PER DAY. SMOKING CESSATION BOOKLET GIVEN TO PT. Past Drug Use History: Heroin, Marijuana Additional Drug Use History / Comment(s): PT STATED IN PAST USED( MARIJUANA, MESCULINE-NONE NOW). CURRENTLY USES HEROIN .STATED LAST USED HEROIN ON Saturday09-30-16 - Past Family History Father Family Medical History: Myocardial Infarction ([place]) Mother Additional Family Medical History / Comment(s): BRAIN ANEURYSM Medications and Allergies Home Medications Medication Instructions Recorded Confirmed Type ALPRAZolam [Xanax] 0.25 mg PO TID PRN 10/03/16 10/18/16 History Albuterol Inhaler [Ventolin Hfa 2 puff INHALATION RT-QID PRN 10/03/16 10/18/16 History Inhaler] Ensure 1 can PO W/BRKFST 10/03/16 10/18/16 History Ibuprofen [Motrin] 800 mg PO Q8HR PRN 10/03/16 10/18/16 History Multivitamin [Men's Multi-Vitamin] 1 tab PO DAILY 10/03/16 10/18/16 History Tiotropium 18 Mcg/Puff [Spiriva] 1 cap INHALATION RT-DAILY 10/03/16 10/18/16 History traZODone HCL 100 mg PO HS 10/03/16 10/18/16 History Allergies Allergy/AdvReac Type Severity Reaction Status Date / Time No Known Allergies Allergy Verified 10/03/16 12:22 Physical Exam Osteopathic Statement: *. No significant issues noted on an osteopathic structural exam other than those noted in the History and Physical/Consult. Vitals: Vital Signs Temp Pulse Pulse Resp BP Pulse Ox 10/18/16 12:00 101 H 10/18/16 11:35 96.3 F L 100 18 158/79 100 10/18/16 11:00 101 H 18 132/76 99 Intake and Output 10/17/16 10/18/16 10/18/16 22:59 06:59 14:59 Other: Voiding Method Indwelling Catheter Gen.: Patient is alert, poor historian, he is oriented to place and time, currently on BiPAP Cardiovascular: Irregular rate and rhythm, S1/S2, tachycardic Lungs: Coarse breath sounds bilaterally Abdomen: Soft nontender nondistended positive bowel sounds Extremities: bilateral upper and lower extremity edema, scleral edema Results - Laboratory Findings CBC and BMP: 10/18/16 09:24 10/18/16 09:24 ABG ABG pH 7.15 (7.35-7.45) L* 10/18/16 09:25 ABG pCO2 97 mmHg (35-45) H* 10/18/16 09:25 ABG pO2 188 mmHg (83-108) H 10/18/16 09:25 ABG O2 Saturation 99.0 % (94-97) H 10/18/16 09:25 PT/INR, D-dimer PT 11.5 sec (9.0-12.0) 10/18/16 09:24 INR 1.1 (<1.1) 10/18/16 09:24 - Diagnostic Findings Chest x-ray: report reviewed, image reviewed U/S of Legs: report reviewed Assessment and Plan Plan: Acute hypoxic and hypercapnic respiratory failure requiring noninvasive mechanical ventilation Respiratory acidosis Probable polysubstance overdose Severe pulmonary hypertension with an RVSP of 61 mmHg Acute exacerbation of COPD Right lower lobe atelectasis versus infiltrate which needs to be followed closely Prior VQ scan done on 10/10/2016 was negative for chronic pulmonary emboli Toxic metabolic encephalopathy History of congestive heart failure Atrial fibrillation with rapid ventricular response History of IV drug abuse Acute kidney injury Hypomagnesemia NSTEMI Polysubstance abuse Emphysema Lymphadenopathy concerning for malignancy Recent bilateral lower extremity DVTs Anemia, macrocytic Maintain sat > or = to 88% Consult vascular for possible IVC filter given patient poor candidate for AC Consult Dr. Ann for enlarged lymph nodes and possible malignancy Continue bipap for now, ok to give breaks later today Blood, urine, sputum cultures Consult cardio for NSTEMI Will start work up for PH serologically, will need outpatient PFT, PSG, possible RHC ABX: Ceftin, add Vanco pharmacy to dose Steroid taper Duonebs Avoid sedative medications GI Prophylaxis Ultrasound bilateral upper extremities given edema Repeat ABG later today IVF hydration Repeat CXR in AM Serial troponin Patient will need follow-up on chest x-rays or computed tomography scan until right lower lobe is clear to ensure this is not malignant Consult nephro regardnig RITESH Thank you for this consultation. We will continue to follow along.
--- NOTE | 2016-10-18 15:00 | P.NPCON ---
History of Present Illness - Reason for Consult acute renal failure - History of Present Illness Reason for consultation: Acute kidney injury History of present illness: Patient is a 61-year-old -[place] male seen in renal consultation for acute kidney injury. His baseline creatinine is near 1. Patient was recently admitted to the hospital and at that time was noted to have a right leg abscess. He received IV antibiotics and was subsequently discharged home on oral Ceftin. Patient has history of IV drug abuse. This admission he presents with dyspnea and altered mental status. He was also noted to be in atrial fibrillation with RVR. It is not clear but there is question of benzodiazepine and opiate overdose at those medications were found in his bedroom. His urine drug screen is also positive for opioids, methadone as well as benzodiazepines. P was found unresponsive and a subsequent he brought to the hospital. His CK level is normal at 125. He is currently on BiPAP for respiratory acidosis. He does respond to verbal commands. Denies any chest pain or shortness of breath. He has a Mary catheter in place and is making urine. I do note Motrin less than his home medications but unclear as to whether he is taking them or not. He is currently maintained on normal saline running at 100 mL an hour. Vital signs are stable. General: The patient appeared well nourished and normally developed. HEENT: Head exam is unremarkable. Neck is without jugular venous distension. LUNGS: Lungs are clear to auscultation and percussion. Breath sounds decreased. HEART: Rate and Rhythm are regular. First and second heart sounds normal. No murmurs, rubs or gallops. ABDOMEN: Abdominal exam reveals normal bowel sounds. Non-tender and non- distended. No evidence of peritonitis. EXTREMITITES: No clubbing, cyanosis, or edema. Past Medical History Past Medical History: COPD Additional Past Medical History / Comment(s): IV drug abuse, CHRONIC NECK/BACK PAIN, SINUS PROBLEMS History of Any Multi-Drug Resistant Organisms: None Reported Past Surgical History: No Surgical Hx Reported Additional Past Surgical History / Comment(s): COLONOSCOPY Past Anesthesia/Blood Transfusion Reactions: No Reported Reaction Past Psychological History: No Psychological Hx Reported Additional Psychological History / Comment(s): Single but lives with his significant other. 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 No experience. No extensive travel. No animal exposures. Positive tobacco use. Denies significant alcohol use. Extensive history of recreational drug use with heroin but it is not active. Smoking Status: Current every day smoker Past Alcohol Use History: None Reported Additional Past Alcohol Use History / Comment(s): STARTED SMOKING AT AGE 17 USED TO SMOKE 1-2 PPD CURRENTLY DOWN TO 3-4 CIG PER DAY. SMOKING CESSATION BOOKLET GIVEN TO PT. Past Drug Use History: Heroin, Marijuana Additional Drug Use History / Comment(s): PT STATED IN PAST USED( MARIJUANA, MESCULINE-NONE NOW). CURRENTLY USES HEROIN .STATED LAST USED HEROIN ON Saturday09-30-16 - Past Family History Father Family Medical History: Myocardial Infarction ([place]) Mother Additional Family Medical History / Comment(s): BRAIN ANEURYSM Medications and Allergies Home Medications Medication Instructions Recorded Confirmed Type ALPRAZolam [Xanax] 0.25 mg PO TID PRN 10/03/16 10/18/16 History Albuterol Inhaler [Ventolin Hfa 2 puff INHALATION RT-QID PRN 10/03/16 10/18/16 History Inhaler] Ensure 1 can PO W/BRKFST 10/03/16 10/18/16 History Ibuprofen [Motrin] 800 mg PO Q8HR PRN 10/03/16 10/18/16 History Multivitamin [Men's Multi-Vitamin] 1 tab PO DAILY 10/03/16 10/18/16 History Tiotropium 18 Mcg/Puff [Spiriva] 1 cap INHALATION RT-DAILY 10/03/16 10/18/16 History traZODone HCL 100 mg PO HS 10/03/16 10/18/16 History Allergies Allergy/AdvReac Type Severity Reaction Status Date / Time No Known Allergies Allergy Verified 10/03/16 12:22 Physical Exam Vitals: Vital Signs Temp Pulse Pulse Resp BP BP Pulse Ox 10/18/16 12:00 98.2 F 101 H 16 139/85 100 10/18/16 11:35 96.3 F L 100 18 158/79 100 10/18/16 11:00 101 H 18 132/76 99 Intake and Output 10/17/16 10/18/16 10/18/16 22:59 06:59 14:59 Other: Voiding Method Indwelling Catheter Results - Lab Results Most recent lab results ABG pH 7.15 (7.35-7.45) L* 10/18/16 09:25 ABG pCO2 97 mmHg (35-45) H* 10/18/16 09:25 ABG pO2 188 mmHg (83-108) H 10/18/16 09:25 ABG HCO3 33 mmol/L (21-25) H 10/18/16 09:25 ABG O2 Saturation 99.0 % (94-97) H 10/18/16 09:25 Calcium 9.2 mg/dL (8.4-10.2) 10/18/16 09:24 Phosphorus 6.5 mg/dL (2.5-4.5) H 10/18/16 09:24 Magnesium 1.5 mg/dL (1.6-2.3) L 10/18/16 09:24 10/18/16 09:24 10/18/16 09:24 Assessment and Plan Plan: Assessment: #1. Nonoliguric acute kidney injury secondary to ischemic ATN secondary to sepsis and hemodynamic instability. Rule out ALLERGIC interstitial nephritis. Baseline creatinine is near 1 and elevated at 1.92 today. Hepatitis panel last week was noted to be negative. #2. Right lower extremity cellulitis. #3. Atrial fibrillation with RVR. #4. Polysubstance drug abuse. #5. Severe pulmonary hypertension. #6. Hyperphosphatemia secondary to acute kidney injury. #7. Respiratory acidosis. #8. Hypomagnesemia. Plan: Maintain normal saline to be run at 100 mL an hour. Maintain Mary catheter. Strict intake and output. Check a urinalysis. Check urine eosinophils. Avoid nephrotoxic agents and hypotensive episodes. Replace magnesium. 2 g today. Repeat electrolytes in the morning. Cardiology and pulmonology following. Thank you for the consultation. I will continue to follow the patient with you during his hospital stay.
[2016-10-18 15:25] LABS: Rheumatoid Factor, Qnt <9 IU/mL (<12)
--- NOTE | 2016-10-18 15:32 | P.HPIM ---
History of Present Illness H&P Date: 10/18/16 Chief Complaint: Acute mental status changes unresponsive( A 61-year-old Afro-S[place]an male presented to the emergency room via the EMS system which was activated after patient was noted to be experiencing acute mental status changes with unresponsiveness patient reportedly lives with a girlfriend. A sister is at the bedside who states that she saw her brother when he was hospitalized last week has not seen him since patient was discharged recently on October 11 . Patients being seen with BiPAP on opening eyes to verbal stimuli. Does not consistently follow simple commands Patient is unable to give adequate history history is been obtained from reviewing the emergency room record and prior computerized records Patient has been seen by pulmonology service was found to be in respiratory acidosis currently is on BiPAP support This admission patient was noted in the emergency room to be in atrial fibrillation with rapid ventricular response. This also question of benzodiazepine and opiate and opiates found at the bedside. Urine drug screen was positive for opiates, methadone as well as benzodiazepine. Patient does have a history of IV heroin use last admission 09/30/2016 reportedly last used heroin on Saturday before coming into the emergency room on October 03. Patient was treated last admission for bilateral lower extremity cellulitis with nonhealing ulcerative area to the right posterior upper thigh. Additionally patient has per Doppler studies last admission bilateral lower extremities DVT the attending at that time palpation was not appropriate candidate for anticoagulation given patient's increased risk for falls, IV drug use and noncompliance follow-up additionally the patient's CAT scan showed left inguinal adenopathy with right lower lobe atelectasis versus pneumonia. Patient was treated for pneumonia last admission with antibiotic therapy Review of Systems Not able to obtain Past Medical History Past Medical History: COPD Additional Past Medical History / Comment(s): IV drug abuse, CHRONIC NECK/BACK PAIN, SINUS PROBLEMS History of Any Multi-Drug Resistant Organisms: None Reported Past Surgical History: No Surgical Hx Reported Additional Past Surgical History / Comment(s): COLONOSCOPY Past Anesthesia/Blood Transfusion Reactions: No Reported Reaction Past Psychological History: No Psychological Hx Reported Additional Psychological History / Comment(s): Single but lives with his significant other. 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 No experience. No extensive travel. No animal exposures. Positive tobacco use. Denies significant alcohol use. Extensive history of recreational drug use with heroin but it is not active. Smoking Status: Current every day smoker Past Alcohol Use History: None Reported Additional Past Alcohol Use History / Comment(s): STARTED SMOKING AT AGE 17 USED TO SMOKE 1-2 PPD CURRENTLY DOWN TO 3-4 CIG PER DAY. SMOKING CESSATION BOOKLET GIVEN TO PT. Past Drug Use History: Heroin, Marijuana Additional Drug Use History / Comment(s): PT STATED IN PAST USED( MARIJUANA, MESCULINE-NONE NOW). CURRENTLY USES HEROIN .STATED LAST USED HEROIN ON Saturday09-30-16 - Past Family History Father Family Medical History: Myocardial Infarction ([place]) Mother Additional Family Medical History / Comment(s): BRAIN ANEURYSM Medications and Allergies Home Medications Medication Instructions Recorded Confirmed Type ALPRAZolam [Xanax] 0.25 mg PO TID PRN 10/03/16 10/18/16 History Albuterol Inhaler [Ventolin Hfa 2 puff INHALATION RT-QID PRN 10/03/16 10/18/16 History Inhaler] Ensure 1 can PO W/BRKFST 10/03/16 10/18/16 History Ibuprofen [Motrin] 800 mg PO Q8HR PRN 10/03/16 10/18/16 History Multivitamin [Men's Multi-Vitamin] 1 tab PO DAILY 10/03/16 10/18/16 History Tiotropium 18 Mcg/Puff [Spiriva] 1 cap INHALATION RT-DAILY 10/03/16 10/18/16 History traZODone HCL 100 mg PO HS 10/03/16 10/18/16 History Allergies Allergy/AdvReac Type Severity Reaction Status Date / Time No Known Allergies Allergy Verified 10/03/16 12:22 Physical Exam Vitals: Vital Signs Temp Pulse Pulse Resp BP BP Pulse Ox 10/18/16 12:00 98.2 F 101 H 16 139/85 100 10/18/16 11:35 96.3 F L 100 18 158/79 100 10/18/16 11:00 101 H 18 132/76 99 Intake and Output 10/18/16 10/18/16 10/18/16 06:59 14:59 22:59 Other: Voiding Method Indwelling Catheter Physical exam 61-year-old opens eyes to verbal stimuli does not consistently follow simple commands. Sclera edema noted bilaterally Lungs diminished at the bases otherwise adequate air movement currently on BiPAP support Heart S1-S2 audible monitor currently is showing sinus rhythm abdomen soft nontender not distended indwelling Mary catheter in place Extremities upper extremities edematous bilateral hands puffy pitting edema noted lower extremities plus nonpitting edema Results CBC & Chem 7: 10/18/16 09:24 10/18/16 09:24 Thrombosis Risk Factor Assmnt - Choose All That Apply Any of the Below Risk Factors Present?: Yes Each Factor Represents 1 point: Abnormal pulmonary function (COPD), Swollen legs (current) Thrombosis Risk Factor Assessment Total Risk Factor Score: 2 Thrombosis Risk Factor Assessment Level: Low Risk Assessment and Plan Plan: Impression Present on admission acute encephalopathy likely toxic suspect polysubstance overdose unintentional or intentional unable to determine Present on admission positive urine drug screen opiates, methadone, benzodiazepine detected History of IV heroin use last use 09/30/2016 Acute hypoxic respiratory failure necessitating use of BiPAP support Respiratory acidosis Hypo-magnesium present on admission Emphysema Computed tomography scan of the abdomen lymphadenopathy concerning for malignancy Dopplers to the bilateral lower extremities October 11 positive for DVT Anemia macrocytic Elevated troponin likely non-ST elevated NE Episode of atrial fibrillation with RVR Right lower lobe atelectasis pneumonia not ruled out Acute exacerbation of COPD Severe pulmonary hypertension with RVSP of 61 Nonoliguric acute kidney injury secondary to ischemic ATN secondary to hemodynamic instability. Rule out ALLERGIC interstitial nephritis. Baseline creatinine is near 1 and elevated at 1.92 today. Plan Continue BiPAP support per pulmonology's recommendations Consult cardiology elevated troponin Follow-up on recommendations by nephrology Monitor blood pressure and heart rate adjust the antihypertensive meds as indicated Solu-Medrol 40 IV every 8 monitor blood sugar Magnesium to be replaced check labs in the morning Resume meds as appropriate IV vancomycin as ordered DVT and GI prophylaxis The above dictated assessment and findings were discussed with dr alvaro Robert and the plan of care have been dictated as directed. Neena Clark nurse practitioner acting as a scribe for dr john
[2016-10-18 16:51] LABS: Glucose,Whole Blood 150 mg/dL (75-99)
[2016-10-18] MEDS: hydrALAZINE HCL 50 MG TAB PO SCH ×2 (17:46→21:55)
--- NOTE | 2016-10-18 18:21 | P.GSCN ---
History of Present Illness Consult date: 10/18/16 Reason for Consult: "IVC filter placement" Requesting physician: Neena Clark History of present illness: impression; 1. bilateral femoral and popliteal deep vein thrombosis present since last discharge in a patient with a 40 year history of IV drug use including using bilateral femoral veins, leg veins and skin popping; suspect this is chronic 2. history of paroxysmal atrial fibrillation on admission now resolved 3. severe pulmonary hypertension 4. poor venous access with history of using both internal jugular and femoral veins for IV drug use 5. right lower lobe pneumonia 6. ACS 7. Stigmata of venous hypertension and venous occlusive disease in both lower extremities that appears chronic (hemosiderin deposition, severe edema) plan; 1. patient is not a candidate for IVC filter placement at this time; concern is for increased risk of IVC thrombosis in this setting with inability to treat if this occurs secondary to inability to access IVC 2. continue prophylaxis for DVT including enoxaperin, eliseo hose 3. multiple medical comorbidities including severe pulmonary hypertension, paroxysmal atrial fibrillation, opiate dependence continuous; patient may be a candidate for hospice 61 y/o man, recently admitted for bilateral lower extremity cellulitis, pneumonia, anasarca readmitted because of syncopal episode at home. Patient noted to be in atrial fibrillation on admission now converted. 40 year history of IV drug use including femoral and internal jugular veins, lower extremity veins and skin. Denies a history of thromboembolic events, known DVT, PE, familial history of hypercoagulable state. Actively using heroin and injected last 2 weeks ago developing abscess and cellulitis. History of falls at home. 20lb weight loss in the last 6 months. No discernable motivation to stop using heroin at this time. PE; HEENT: track soria noted in both subclavicular areas; no bruits, no JVD; trachea midline Lungs; diminished at both bases; right lung 1/[address] way up posteriorly ABD; soft, non-tender, hepatomegaly at 12 cm, no pulsatile organomegaly or bruits EXTR; femoral, popliteal and dorsalis pedis and posterior tibial pulses are palpable bilaterally; edema from knees to feet; healed skin popping sites in both legs; hemosiderin deposition in lower legs; Venous duplex of the lower legs demonstrates bilateral femoral and popliteal deep vein thrombosis. impression/plan as noted above Past Medical History Past Medical History: COPD Additional Past Medical History / Comment(s): IV drug abuse, CHRONIC NECK/BACK PAIN, SINUS PROBLEMS History of Any Multi-Drug Resistant Organisms: None Reported Past Surgical History: No Surgical Hx Reported Additional Past Surgical History / Comment(s): COLONOSCOPY Past Anesthesia/Blood Transfusion Reactions: No Reported Reaction Past Psychological History: No Psychological Hx Reported Additional Psychological History / Comment(s): Single but lives with his significant other. 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 No experience. No extensive travel. No animal exposures. Positive tobacco use. Denies significant alcohol use. Extensive history of recreational drug use with heroin but it is not active. Smoking Status: Current every day smoker Past Alcohol Use History: None Reported Additional Past Alcohol Use History / Comment(s): STARTED SMOKING AT AGE 17 USED TO SMOKE 1-2 PPD CURRENTLY DOWN TO 3-4 CIG PER DAY. SMOKING CESSATION BOOKLET GIVEN TO PT. Past Drug Use History: Heroin, Marijuana Additional Drug Use History / Comment(s): PT STATED IN PAST USED( MARIJUANA, MESCULINE-NONE NOW). CURRENTLY USES HEROIN .STATED LAST USED HEROIN ON Saturday09-30-16 - Past Family History Father Family Medical History: Myocardial Infarction ([place]) Mother Additional Family Medical History / Comment(s): BRAIN ANEURYSM Medications and Allergies Home Medications Medication Instructions Recorded Confirmed Type ALPRAZolam [Xanax] 0.25 mg PO TID PRN 10/03/16 10/18/16 History Albuterol Inhaler [Ventolin Hfa 2 puff INHALATION RT-QID PRN 10/03/16 10/18/16 History Inhaler] Ensure 1 can PO W/BRKFST 10/03/16 10/18/16 History Ibuprofen [Motrin] 800 mg PO Q8HR PRN 10/03/16 10/18/16 History Multivitamin [Men's Multi-Vitamin] 1 tab PO DAILY 10/03/16 10/18/16 History Tiotropium 18 Mcg/Puff [Spiriva] 1 cap INHALATION RT-DAILY 10/03/16 10/18/16 History traZODone HCL 100 mg PO HS 10/03/16 10/18/16 History Allergies Allergy/AdvReac Type Severity Reaction Status Date / Time No Known Allergies Allergy Verified 10/03/16 12:22 Surgical - Exam Vital Signs Pulse Resp BP Pulse Ox 144 H 18 102/58 96 10/18/16 08:23 03/09/17 08:23 10/18/16 08:23 10/18/16 08:23 Results - Labs 10/18/16 09:24 10/18/16 09:24 Abnormal Lab Results - Last 24 Hours (Table) 10/18/16 Range/Units 16:50 POC Glucose (mg/dL) 150 H (75-99) mg/dL
[2016-10-18] MEDS ORDERED: LIDOCAINE 2% INJ 20 MG/ML SQ ONE ×2 (18:35→18:39)
[2016-10-18] MEDS: MAGNESIUM SULFATE-D5W PMX 1 GM in DEXTROSE/WATER 1 100ML.BAG IVPB SCH ×2 (20:22→21:02)
[2016-10-18] MEDS: HEPARIN SODIUM,PORCINE/D5W PMX 25,000 UNIT in DEXTROSE/WATER 1 500ML.BAG IV SCH (20:25)
[2016-10-18] MEDS: methylPREDNISolone SOD SUCCI 40 MG/ML 1 ML VIAL IV SCH (20:41)
--- NOTE | 2016-10-18 21:18 | HP ---
DATE OF ADMISSION: 10/18/2016 CHIEF COMPLAINT: Shortness of breath and mental status changes. HISTORY OF PRESENT ILLNESS: This gentleman was just discharged after being treated for cellulitis of the lower extremities. He is a continuing IV drug abuser. He also has generalized anasarca and periorbital edema and this was all treated. He apparently awoke up on the morning of admission extremely drowsy and could not be aroused. He was brought to the emergency room. There is no history of any chest pain, etc. He denies any headaches. REVIEW OF SYSTEMS: Denies any headaches, neurologic changes, difficulty with vision, cough, hemoptysis, abdominal pain, vomiting, diarrhea, melena, hematochezia, renal failure, dysuria, frequency, urinary or stool incontinence, etc. Past medical history, family history, and personal and social histories: Essentially unchanged from his recent admitting and discharge summaries. He is on: 1. Aspirin 325 once a day. 2. Ceftin 500 twice a day. 3. Hydralazine 50 mg t.i.d. 4. Drisdol 50,000 units once a week to replace vitamin D. 5. Ventolin HFA. 6. Trazodone 50 mg 1 or 2 q.h.s. 7. Spiriva once a day. 8. Ibuprofen 800 mg q.i.d. p.r.n. 9. Xanax 0.25 once a day. Studies in the emergency room, CO2 is 97, oxygen was 188. PHYSICAL EXAMINATION: VITAL SIGNS: Blood pressure was 200/110 with a pulse of 96, respirations 20. He is afebrile. GENERAL: He appeared to be lethargic. SKIN: Skin demonstrated multiple scars on locations where he injected drugs in the past. HEENT: Head, ears, eyes, nose, mouth, and throat reveals periorbital edema, more on the right than on the left. NECK: Supple. CHEST: Demonstrated poor rhonchi and rales bilaterally. CARDIAC: Demonstrated sinus tachycardia. The abdomen is soft and there are no masses. EXTREMITIES: Normal. NEUROLOGIC: He is lethargic but had no focal deficits. He is admitted to the hospital with diagnoses: 1. Mental status changes possibly related to drug use. 2. Chronic obstructive pulmonary disease. 3. Intravenous drug abuse. 4. Generalized anasarca. 5. Congestive heart failure ? 6. Hypercarbia. PLAN: 1. Bed rest IV fluids. 2. Frequent monitoring of his neurologic status and vital signs. 3. Correct acid base balance. 4. Consider anticoagulation for his documented bilateral lower extremity DVTs.
[2016-10-18] MEDS: VANCOMYCIN 1,250 MG in SODIUM CHLORIDE 0.9% 250 ML IVPB SCH (21:36)
[2016-10-18] MEDS: CEFUROXIME 250 MG TAB PO SCH (21:53)
[2016-10-18] MEDS: FAMOTIDINE 20 MG TAB PO SCH (21:54)
[2016-10-18] MEDS: traZODone HCL 100 MG TAB PO SCH (21:56)
[2016-10-19] MEDS: methylPREDNISolone SOD SUCCI 40 MG/ML 1 ML VIAL IV SCH ×4 (02:48→23:51)
[2016-10-19 07:05] LABS: Glucose,Whole Blood 128 mg/dL (75-99)
[2016-10-19] MEDS: INSULIN LISPRO (humaLOG) 300 UNIT/3 ML VIAL SQ SCH ×4 (07:28→21:17)
[2016-10-19] MEDS ORDERED: NON-FORMULARY DRUG (Ensure 1 CAN) PO SCH (07:30)
--- NOTE | 2016-10-19 07:49 | XR ---
EXAMINATION TYPE: XR chest 1V portable DATE OF EXAM: 10/19/2016 7:23 AM COMPARISON: 10/18/2016 HISTORY: Shortness of breath TECHNIQUE: Single frontal view of the chest is obtained. FINDINGS: There is an area of consolidation and pleural effusion on the right. Suggestion of a large bulla or cavitary lesion involving the right upper lobe. PICC line noted. Left lung clear. COPD susp ected. IMPRESSION: 1. Increasing perihilar area of consolidation cavitary lesion differential diagnosis. This was not cl early seen on the previous CT scan.
[2016-10-19] MEDS: VANCOMYCIN 1,250 MG in SODIUM CHLORIDE 0.9% 250 ML IVPB SCH (07:58)
[2016-10-19] MEDS: ASPIRIN 325 MG TAB PO SCH (08:00)
[2016-10-19] MEDS ORDERED: TIOTROPIUM 18 MCG/PUFF INHALER INHALATION SCH (08:00)
[2016-10-19] MEDS: hydrALAZINE HCL 50 MG TAB PO SCH ×3 (08:00→23:52)
[2016-10-19] MEDS: CEFUROXIME 250 MG TAB PO SCH (08:00)
[2016-10-19] MEDS: FAMOTIDINE 20 MG TAB PO SCH (08:01)
[2016-10-19 08:05] LABS: Magnesium 1.8 mg/dL (1.6-2.3); Potassium 3.9 mmol/L (3.5-5.1)
[2016-10-19] MEDS: IPRATROPIUM-ALBUTEROL 3 ML NEB INHALATION SCH ×4 (08:40→20:24)
--- NOTE | 2016-10-19 08:46 | US ---
EXAMINATION TYPE: US venous doppler duplex UE BI DATE OF EXAM: 10/19/2016 8:20 AM COMPARISON: NONE CLINICAL HISTORY: R/O DVT. Left arm edema. No pain. History of bilateral leg DVT. Patient had extreme shortness of breath and had mask on. SIDE PERFORMED: Bilateral TECHNOLOGIST IMPRESSION: Right Arm: Appears negative for DVT Left Arm: Appears negative for DVT IMPRESSION: This examination is negative for DVT in both arms.
[2016-10-19] MEDS: HEPARIN SODIUM,PORCINE/D5W PMX 25,000 UNIT in DEXTROSE/WATER 1 500ML.BAG IV SCH (08:54)
--- NOTE | 2016-10-19 08:57 | IR ---
PICC LINE PLACEMENT: HISTORY: Infection requiring long-term antibiotic therapy PROCEDURE: Ultrasound and fluoroscopic guidance of PICC line placement. MEDIA ARTS PROFESSOR: COMPLICATIONS: None ANESTHESIA: 1. 1% Lidocaine locally. FINDINGS/TECHNIQUE: The procedure was explained to the patient. The risks, complications, benefits and alternatives were discussed and any questions were answered. Informed consent was obtained. The patient was placed supine on the fluoroscopic table and prepped and draped in the usual sterile [facility] ion. Utilizing a 21 gauge needle and sonographic and fluoroscopic guidance, access in the right bas ilic vein was achieved and there is placement of a 0.018 guidewire. The vein is patent. A 5-F. marquez th was placed over the guidewire. The guidewire and dilator were removed and a 5-F. Double lumen PIC C line was placed through the sheath with the tip at the level of the SVC. The sheath was removed, t he catheter was flushed and sutured into position. The patient was stable throughout the procedure a nd remained stable upon discharge from the Department of Radiology. The vein puncture was patent under ultrasound. A bridges scale image was obtained to document patency of the vein punctured. All elements of the maximal barrier technique were utilized. FLUOROSCOPY TIME: 1.8 minutes IMPRESSION: Successful PICC double lumen line placement under ultrasound and fluoroscopic guidance. Note is made of probable central venous occlusion on the left.
[2016-10-19] MEDS ORDERED: ENOXAPARIN 40 MG/0.4 ML SYRINGE SQ SCH (09:00)
[2016-10-19] MEDS ORDERED: FUROSEMIDE 10 MG/ML 10 ML VIAL IV STA (09:06)
--- NOTE | 2016-10-19 09:11 | P.PN ---
Subjective Patient is seen in follow-up for acute kidney injury. His baseline creatinine is near 1. Patient was recently admitted and was noted to have a right leg abscess. He did receive antibiotics. This time the patient was found unresponsive at home and subsequently brought to the hospital. His CK level was normal at 125. He is noted to have lower extremity edema. Denies any active chest pain or shortness of breath. He has a Mary catheter in place and is oliguric with urine output of only 100 mL overnight. He has extensive history of IV drug abuse. His hepatitis panel was noted to be negative. Urine eosinophils are negative as well. He was in atrial fibrillation with RVR on admission and is currently heart rate is about 112. Vital signs are stable. General: The patient appeared well nourished and normally developed. HEENT: Head exam is unremarkable. Neck is without jugular venous distension. LUNGS: Lungs are clear to auscultation and percussion. Breath sounds decreased. HEART: Rate and Rhythm are regular. First and second heart sounds normal. No murmurs, rubs or gallops. ABDOMEN: Abdominal exam reveals normal bowel sounds. Non-tender and non- distended. No evidence of peritonitis. EXTREMITITES: 1+ edema. Objective - Vital Signs Vital signs: Vital Signs Temp 97.4 F L 10/19/16 03:09 Pulse 100 10/19/16 08:41 Resp 20 10/19/16 03:09 BP 143/78 10/19/16 03:09 Pulse Ox 92 L 10/19/16 03:09 Intake & Output 10/18/16 10/19/16 10/19/16 18:59 06:59 18:59 Intake Total 200 94.4 146.625 Output Total 200 Balance 200 -105.6 146.625 Weight 68.2 kg 69 kg Intake: Intake, IV Titration 94.4 146.625 Amount Heparin Sodium,Porcine/ 94.4 146.625 D5w Pmx 25,000 unit In Dextrose/Water 1 500ml. bag @ 12 UNITS/KG/HR 16. 37 mls/hr IV .Q[facility]H [facility] Rx #:[id number] Oral 200 Output: Urine 200 Other: Voiding Method Indwelling Catheter Indwelling Catheter - Labs CBC & Chem 7: 10/18/16 09:24 10/19/16 06:45 Labs: Abnormal Lab Results - Last 24 Hours (Table) 10/18/16 10/19/16 10/19/16 Range/Units 16:50 00:45 01:30 APTT 36.5 H (22.0-30.0) sec BUN (9-20) mg/dL Creatinine (0.66-1.25) mg/dL Glucose (74-99) mg/dL POC Glucose (mg/dL) 150 H (75-99) mg/dL Troponin I 0.332 H* (0.000-0.034) ng/mL 10/19/16 10/19/16 10/19/16 Range/Units 06:45 06:45 06:45 APTT 132.7 H* (22.0-30.0) sec BUN 34 H (9-20) mg/dL Creatinine 2.48 H (0.66-1.25) mg/dL Glucose 133 H (74-99) mg/dL POC Glucose (mg/dL) (75-99) mg/dL Troponin I 0.301 H* (0.000-0.034) ng/mL 10/19/16 Range/Units 07:04 APTT (22.0-30.0) sec BUN (9-20) mg/dL Creatinine (0.66-1.25) mg/dL Glucose (74-99) mg/dL POC Glucose (mg/dL) 128 H (75-99) mg/dL Troponin I (0.000-0.034) ng/mL Assessment and Plan Plan: Assessment: #1. Oliguric acute kidney injury secondary to ischemic ATN secondary to sepsis and hemodynamic instability. Urine eosinophils negative. Baseline creatinine is near 1 and elevated at 2.48 today. Hepatitis panel last week was noted to be negative. #2. Right lower extremity cellulitis. #3. Atrial fibrillation with RVR. #4. Polysubstance drug abuse. #5. Severe pulmonary hypertension. #6. Hyperphosphatemia secondary to acute kidney injury. #7. Respiratory acidosis. #8. Hypomagnesemia. Improved post replacement. Plan: I will decrease rate of IV fluids to 50mL an hour. Lasix 80 mg IV once today. Maintain Mary catheter. Strict intake and output. Check a urinalysis - initial sample wasn't enough. Avoid nephrotoxic agents and hypotensive episodes. Start Renvela with meals. Repeat electrolytes in the morning. Cardiology and pulmonology following. If active urine sediment noted, will proceed with serologic workup and potentially a kidney biopsy. I also discussed with him the potential need for renal replacement therapy in the next 24-48 hours if no improvement in renal function and urine output.
[2016-10-19] MEDS: SODIUM CHLORIDE 0.9% 1,000 ML IV SCH ×2 (09:16→09:36)
--- NOTE | 2016-10-19 11:02 | P.PN ---
Subjective Principal diagnosis: Acute hypoxic and hypercapnic respiratory failure Patient seen and examined. Patient is much more alert today. He is off of BiPAP. He states his breathing is okay but it is not back to baseline. He is complaining of chills at this time. Objective - Vital Signs Vital signs: Vital Signs Temp 97.5 F L 10/19/16 08:00 Pulse 104 H 10/19/16 08:51 Resp 18 10/19/16 08:00 BP 150/81 10/19/16 08:00 Pulse Ox 92 L 10/19/16 08:00 Intake & Output 10/18/16 10/19/16 10/19/16 18:59 06:59 18:59 Intake Total 200 94.4 146.625 Output Total 200 Balance 200 -105.6 146.625 Weight 68.2 kg 69 kg Intake: Intake, IV Titration 94.4 146.625 Amount Heparin Sodium,Porcine/ 94.4 146.625 D5w Pmx 25,000 unit In Dextrose/Water 1 500ml. bag @ 12 UNITS/KG/HR 16. 37 mls/hr IV .Q24H [facility] Rx #:[id number] Oral 200 Output: Urine 200 Other: Voiding Method Indwelling Catheter Indwelling Catheter Indwelling Catheter - Exam Gen.: Patient is alert and oriented, he does appear to have shaking chills Cardiovascular: Irregular rate and rhythm, S1/S2, tachycardic Lungs: Coarse breath sounds bilaterally Abdomen: Soft nontender nondistended positive bowel sounds Extremities: bilateral upper and lower extremity edema, scleral edema - Labs CBC & Chem 7: 10/18/16 09:24 10/19/16 06:45 Labs: Abnormal Lab Results - Last 24 Hours (Table) 10/18/16 10/19/16 10/19/16 Range/Units 16:50 00:45 01:30 APTT 36.5 H (22.0-30.0) sec BUN (9-20) mg/dL Creatinine (0.66-1.25) mg/dL Glucose (74-99) mg/dL POC Glucose (mg/dL) 150 H (75-99) mg/dL Troponin I 0.332 H* (0.000-0.034) ng/mL 10/19/16 10/19/16 10/19/16 Range/Units 06:45 06:45 06:45 APTT 132.7 H* (22.0-30.0) sec BUN 34 H (9-20) mg/dL Creatinine 2.48 H (0.66-1.25) mg/dL Glucose 133 H (74-99) mg/dL POC Glucose (mg/dL) (75-99) mg/dL Troponin I 0.301 H* (0.000-0.034) ng/mL 10/19/16 Range/Units 07:04 APTT (22.0-30.0) sec BUN (9-20) mg/dL Creatinine (0.66-1.25) mg/dL Glucose (74-99) mg/dL POC Glucose (mg/dL) 128 H (75-99) mg/dL Troponin I (0.000-0.034) ng/mL Assessment and Plan Plan: Acute hypoxic and hypercapnic respiratory failure requiring noninvasive mechanical ventilation Respiratory acidosis Probable polysubstance overdose Severe pulmonary hypertension with an RVSP of 61 mmHg Acute exacerbation of COPD Right lower lobe atelectasis versus infiltrate which needs to be followed closely Prior VQ scan done on 10/10/2016 was negative for chronic pulmonary emboli Toxic metabolic encephalopathy History of congestive heart failure Atrial fibrillation with rapid ventricular response History of IV drug abuse Acute kidney injury Hypomagnesemia NSTEMI Polysubstance abuse Emphysema Lymphadenopathy concerning for malignancy Recent bilateral lower extremity DVTs Anemia, macrocytic Maintain sat > or = to 88% Vascular for possible IVC filter given patient poor candidate for AC - appreciate recommendations Consult Dr. Ann for enlarged lymph nodes and possible malignancy Continue bipap for now, ok to give breaks later today Blood, urine, sputum cultures Consult cardio for NSTEMI Will start work up for PH serologically, will need outpatient PFT, PSG, possible RHC ABX: Ceftin, add Vanco pharmacy to dose Steroid taper Duonebs Avoid sedative medications GI Prophylaxis Ultrasound bilateral upper extremities given edema IVF hydration Repeat CXR reviewed, will get CT scan to assess for possible cavitary lesion Serial troponin Patient will need follow-up on chest x-rays or computed tomography scan until right lower lobe is clear to ensure this is not malignant Appreciate nephro recs
--- NOTE | 2016-10-19 11:23 | P.CRDCN ---
History of Present Illness Consult date: 10/19/16 Reason for Consult (text): This is a 61-year-old -[place] gentleman presents to the emergency room via EMS unresponsive. Patient does not recall the events surrounding his arrival to the emergency department. There is a question of a possible benzodiazepine and opiate overdoses his medications were front of the patient's bedside and urine drug screen was also positive for opioids, methadone as well as benzodiazepines. He has a history of a recent discharge from the hospital on October 11 at which time he was being treated for lower extremity abscess. 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 Patient also has a recent history of bilateral lower extremity DVTs and at that time was felt not to be an appropriate candidate for anticoagulation given the patient's increased risk for falls, IV drug use and noncompliance with follow-up. On presentation this admission patient was found to be in A. fib with RVR, currently in sinus tachycardia. He was also found to have acute kidney injury most recent BUN 34 and creatinine 2.48 with low urine output and anasarca. Troponins were found to be elevated at 0.061, 0.332 and 0.301. Patient's magnesium was low at 1.5, this morning is 1.8. Ultrasound of the upper extremities was negative for DVT. Upon examination, patient's main complaint is generalized swelling. He complains of minimal shortness of breath. Denies complaints of chest discomfort, palpitations, dizziness, lightheadedness or cough. Past Medical History Past Medical History: COPD Additional Past Medical History / Comment(s): IV drug abuse, CHRONIC NECK/BACK PAIN, SINUS PROBLEMS History of Any Multi-Drug Resistant Organisms: None Reported Past Surgical History: No Surgical Hx Reported Additional Past Surgical History / Comment(s): COLONOSCOPY Past Anesthesia/Blood Transfusion Reactions: No Reported Reaction Past Psychological History: No Psychological Hx Reported Additional Psychological History / Comment(s): Single but lives with his significant other. 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 No experience. No extensive travel. No animal exposures. Positive tobacco use. Denies significant alcohol use. Extensive history of recreational drug use with heroin but it is not active. Smoking Status: Current every day smoker Past Alcohol Use History: None Reported Additional Past Alcohol Use History / Comment(s): STARTED SMOKING AT AGE 17 USED TO SMOKE 1-2 PPD CURRENTLY DOWN TO 3-4 CIG PER DAY. SMOKING CESSATION BOOKLET GIVEN TO PT. Past Drug Use History: Heroin, Marijuana Additional Drug Use History / Comment(s): PT STATED IN PAST USED( MARIJUANA, MESCULINE-NONE NOW). CURRENTLY USES HEROIN .STATED LAST USED HEROIN ON Saturday09-30-16 - Past Family History Father Family Medical History: Myocardial Infarction ([place]) Mother Additional Family Medical History / Comment(s): BRAIN ANEURYSM Medications and Allergies Home Medications Medication Instructions Recorded Confirmed Type ALPRAZolam [Xanax] 0.25 mg PO TID PRN 10/03/16 10/18/16 History Albuterol Inhaler [Ventolin Hfa 2 puff INHALATION RT-QID PRN 10/03/16 10/18/16 History Inhaler] Ensure 1 can PO W/BRKFST 10/03/16 10/18/16 History Ibuprofen [Motrin] 800 mg PO Q8HR PRN 10/03/16 10/18/16 History Multivitamin [Men's Multi-Vitamin] 1 tab PO DAILY 10/03/16 10/18/16 History Tiotropium 18 Mcg/Puff [Spiriva] 1 cap INHALATION RT-DAILY 10/03/16 10/18/16 History traZODone HCL 100 mg PO HS 10/03/16 10/18/16 History Allergies Allergy/AdvReac Type Severity Reaction Status Date / Time No Known Allergies Allergy Verified 10/03/16 12:22 Physical Exam Vitals: Vital Signs Temp Pulse Pulse Resp BP BP Pulse Ox 10/19/16 08:51 104 H 10/19/16 08:41 100 10/19/16 08:00 97.5 F L 121 H 18 150/81 92 L 10/19/16 03:09 97.4 F L 112 H 20 143/78 92 L 10/19/16 00:00 98.8 F 113 H 20 144/81 92 L 10/18/16 21:45 125 H 20 159/91 96 10/18/16 20:06 121 H 10/18/16 20:01 114 H 10/18/16 20:00 98.2 F 115 H 20 135/95 10/18/16 16:00 96.7 F L 108 H 14 154/85 95 10/18/16 15:45 112 H 10/18/16 15:37 104 H 10/18/16 12:00 98.2 F 101 H 16 139/85 100 10/18/16 11:35 96.3 F L 100 18 158/79 100 10/18/16 11:00 101 H 18 132/76 99 Intake and Output 10/18/16 10/19/16 10/19/16 22:59 06:59 14:59 Intake Total 200 94.4 146.625 Output Total 200 Balance 200 -105.6 146.625 Intake: Intake, IV Titration 94.4 146.625 Amount Heparin Sodium,Porcine/ 94.4 146.625 D5w Pmx 25,000 unit In Dextrose/Water 1 500ml. bag @ 12 UNITS/KG/HR 16. 37 mls/hr IV .Q24H [facility] Rx #:[id number] Oral 200 Output: Urine 200 Other: Voiding Method Indwelling Catheter Indwelling Catheter Indwelling Catheter Weight 69 kg PHYSICAL EXAMINATION: HEENT: Head is atraumatic, normocephalic. Pupils equal, round. Neck is supple. There is no elevated jugular venous pressure. HEART EXAMINATION: Heart sounds regular, S1 and S2 normal. No murmur or gallop heard. CHEST EXAMINATION: Lungs reveal diminished air entry bilaterally. No chest wall tenderness is noted on palpation or with deep breathing. ABDOMEN: Soft, nontender. Bowel sounds are heard. No organomegaly noted. EXTREMITIES: Diminished peripheral pulses with evidence of 2+ peripheral edema and no calf tenderness noted. NEUROLOGIC patient is awake, alert but drowsy and oriented x3. . Results 10/18/16 09:24 10/19/16 06:45 Cardiac Enzymes 10/19/16 10/19/16 Range/Units 00:45 06:45 Troponin I 0.332 H* 0.301 H* (0.000-0.034) ng/mL Coagulation 10/19/16 10/19/16 Range/Units 01:30 06:45 APTT 36.5 H 132.7 H* (22.0-30.0) sec Comprehensive Metabolic Panel 10/19/16 Range/Units 06:45 Sodium 143 (137-145) mmol/L Potassium 3.9 (3.5-5.1) mmol/L Chloride 104 (98-107) mmol/L Carbon Dioxide 27 (22-30) mmol/L BUN 34 H (9-20) mg/dL Creatinine 2.48 H (0.66-1.25) mg/dL Glucose 133 H (74-99) mg/dL Calcium 9.0 (8.4-10.2) mg/dL Current Medications Generic Name Dose Route Start Last Admin Trade Name Freq PRN Reason Stop Dose Admin Albuterol/Ipratropium 3 ml 10/18/16 12:00 10/19/16 08:40 Duoneb 0.5 Mg-3 Mg/3 Ml Soln INHALATION 3 ml RT-QID [facility] Administration Aspirin 325 mg 10/19/16 09:00 10/19/16 08:00 Aspirin PO 325 mg DAILY [facility] Administration Cefuroxime Axetil 500 mg 10/18/16 21:00 10/19/16 08:00 Ceftin PO 500 mg BID [facility] Administration Famotidine 20 mg 10/20/16 09:00 Pepcid PO DAILY [facility] Hydralazine HCl 50 mg 10/18/16 16:00 10/19/16 08:00 Apresoline PO 50 mg TID [facility] Administration Heparin Sodium/Dextrose 25,000 500 mls @ 16.37 mls/hr 10/18/16 14:30 08:54 unit/ IV Solution IV 13 units/kg/hr .Q24H [facility] 17.74 mls/hr Protocol Administration 12 UNITS/KG/HR Sodium Chloride 1,000 mls @ 50 mls/hr 10/19/16 09:30 10/19/16 09:36 Saline 0.9% IV 50 mls/hr .Q20H [facility] Administration Vancomycin HCl 1,250 mg/ 250 mls @ 125 mls/hr 10/21/16 08:00 Sodium Chloride IVPB Q48H [facility] Insulin Human Lispro 0 unit 10/19/16 07:30 10/19/16 07:28 Humalog SQ Not Given ACHS [facility] Protocol Methylprednisolone Sodium Succinate 40 mg 10/18/16 16:00 10/19/16 08:00 Solu-Medrol IV 40 mg Q8HR [facility] Administration Multivitamins 1 each 10/19/16 12:00 Theragran PO DAILY@1200 [facility] Sevelamer Carbonate 800 mg 10/19/16 12:30 Renvela PO TID-W/MEALS [facility] Trazodone HCl 100 mg 10/18/16 21:00 10/18/16 21:56 Desyrel PO Not Given HS [facility] Intake and Output 10/18/16 10/19/16 10/19/16 22:59 06:59 14:59 Intake Total 200 94.4 146.625 Output Total 200 Balance 200 -105.6 146.625 Intake: Intake, IV Titration 94.4 146.625 Amount Heparin Sodium,Porcine/ 94.4 146.625 D5w Pmx 25,000 unit In Dextrose/Water 1 500ml. bag @ 12 UNITS/KG/HR 16. 37 mls/hr IV .Q24H [facility] Rx #:[id number] Oral 200 Output: Urine 200 Other: Voiding Method Indwelling Catheter Indwelling Catheter Indwelling Catheter Weight 69 kg 10/19/16 06:45 Assessment and Plan Plan: Assessment and plan #1 acute kidney injury #2 lower extremity cellulitis #3 paroxysmal atrial fibrillation with rapid ventricular response #4 IV drug abuse #5 COPD #6 pulmonary hypertension #7 elevated troponins #8 hypomagnesemia, improved post replacement From cardiology's perspective, patient's symptoms likely related to COPD and acute kidney injury. CT scan shows evidence of third spacing. Diuretics per nephrology. Continue to follow renal function, daily weights and I&Os. We will continue to follow the patient with you and provide further recommendations accordingly depending upon patient's clinical status. LABORATORY ASST note has been reviewed, I agree with a documented findings and plan of care. Patient was seen and examined.
[2016-10-19 13:00] LABS: Appearance,Urine Cloudy (Clear); Bacteria,Urine Rare /hpf; Bilirubin,Urine Negative (Negative); Glucose,Urine (UA) Negative (Negative); Ketones,Urine Negative (Negative); Leukocyte Esterase,Urine Large (Negative); Mucus,Urine Rare /hpf; Nitrite,Urine Negative (Negative); PH, Urine 5.5 (5.0-8.0); Particle Count 15132; Protein,Urine 2+ (Negative); RBC,Urine >182 /hpf (0-5); Specific Gravity,Urine 1.009 (1.001-1.035); UA Billing (MACRO vs. MICRO) MICRO; Urobilinogen,Urine <2.0 mg/dL (<2.0); WBC,Urine 37 /hpf (0-5)
--- NOTE | 2016-10-19 13:10 | PN ---
CHIEF COMPLAINT: Edema, congestive heart failure and mental status changes. HISTORY OF PRESENT ILLNESS: This gentleman is doing fairly well today and he is much more awake and alert. He is having no chest pain. He is diuresing. PHYSICAL EXAM: Chest is clear except for decreased breath sounds at the bases. Cardiac exam in normal. ABDOMEN: Soft and nontender. IMPRESSION: 1. Mental status changes. 2. Intravenous drug abuse. 3. Congestive heart failure. 4. Anasarca. PLAN: Continue diuresis and increase activity. His ( ) with an ejection fraction of only 30%.
[2016-10-19 13:33] VITALS: BMI 25.3
[2016-10-19] MEDS: SEVELAMER 800 MG TAB PO SCH ×2 (13:51→18:00)
[2016-10-19] MEDS: MULTIVITAMINS, THERA 1 EACH TAB PO SCH (13:51)
--- NOTE | 2016-10-19 14:05 | CT ---
EXAMINATION TYPE: CT chest wo con DATE OF EXAM: 10/19/2016 1:20 PM COMPARISON: 10/05/2016 HISTORY: 61-year-old male with possible cavitary lung lesion. TECHNIQUE: Contiguous axial scanning of the chest without IV contrast. Coronal and sagittal reconstru ctions performed. CT DLP: 194.6 mGycm Automated exposure control for dose reduction was used. FINDINGS: The lack of IV contrast and severe diffuse anasarca type change with body wall edema and edema throug hout the intrathoracic and intra-abdominal fat decreases the sensitivity of the exam. The heart is normal size without pericardial effusion. Aorta is normal-caliber with conventional bran nayeli anatomy. A right PICC line is present with tip at the brachiocephalic vein confluence. Unable to evaluate for any potential mediastinal or hilar lymphadenopathy. There is mild to moderate centrilobular emphysema. Interval progression in the posterior right basila r consolidation. A small right pleural effusion is slightly increased from prior as is a trace left p leural effusion. Bones: No osseous destructive process. IMPRESSION: 1. SEVERE THIRD SPACING WITH EXTENSIVE ANASARCA-TYPE CHANGE, PROGRESSED FROM PREVIOUS. 2. PROGRESSION IN THE POSTERIOR RIGHT BASILAR OPACITY. PNEUMONIA NOT EXCLUDED. THREE-MONTH FOLLOW-UP EXAM CAN BE PERFORMED TO ENSURE CLEARANCE. NO CAVITARY CHANGES. 3. AN 8MM RIGHT BASILAR PULMONARY NODULE IS STABLE AND CAN ALSO BE REASSESSED AT THAT TIME. 4. SLIGHT INCREASE IN SMALL RIGHT PLEURAL EFFUSION AND TRACE LEFT PLEURAL EFFUSION. 5. COPD WITH MILD TO MODERATE EMPHYSEMA.
--- NOTE | 2016-10-19 15:42 | P.CONS ---
History of Present Illness - Reason for Consult Consult date: 10/19/16 lymphadenopathy Requesting physician: Neena Clark - Chief Complaint AMS, hypoxia - History of Present Illness Mr. Hull is a very pleasant 61 year old male with a history significant for IVDA with significant scarring from needle sticks in the lower extremities and groin. In late Sep her treated for cellulitis in the RLE, diagnosed with BLE DVT. We are asked to see the patient for bilateral inguinal adenopathy discussed more on the US report then the CT. Pt denies any personal history of cancer or blood disorders, he denies any unintentional wt. loss. He has LAWANDA when he is active but is comfortable at rest, he is requiring O2 for comfort at this time. No fevers, difficulty swallowing, recent vomiting , chest pain, he will have stomach pain somtimes, he cannot relate it to anything in particular, denies changes in bowel or bladder habits, no bleeding. He states that the "lumps" in his groin have been there, he relates them to his IVDA history. Review of Systems All systems: negative Constitutional: Reports as per HPI Past Medical History Past Medical History: COPD Additional Past Medical History / Comment(s): IV drug abuse, CHRONIC NECK/BACK PAIN, SINUS PROBLEMS History of Any Multi-Drug Resistant Organisms: None Reported Past Surgical History: No Surgical Hx Reported Additional Past Surgical History / Comment(s): COLONOSCOPY Past Anesthesia/Blood Transfusion Reactions: No Reported Reaction Past Psychological History: No Psychological Hx Reported Additional Psychological History / Comment(s): Single but lives with his significant other. 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 No experience. No extensive travel. No animal exposures. Positive tobacco use. Denies significant alcohol use. Extensive history of recreational drug use with heroin but it is not active. Smoking Status: Current every day smoker Past Alcohol Use History: None Reported Additional Past Alcohol Use History / Comment(s): STARTED SMOKING AT AGE 17 USED TO SMOKE 1-2 PPD CURRENTLY DOWN TO 3-4 CIG PER DAY. SMOKING CESSATION BOOKLET GIVEN TO PT. Past Drug Use History: Heroin, Marijuana Additional Drug Use History / Comment(s): PT STATED IN PAST USED( MARIJUANA, MESCULINE-NONE NOW). CURRENTLY USES HEROIN .STATED LAST USED HEROIN ON Saturday09-30-16 - Past Family History Father Family Medical History: Myocardial Infarction (RI) Mother Additional Family Medical History / Comment(s): BRAIN ANEURYSM Medications and Allergies Home Medications Medication Instructions Recorded Confirmed Type ALPRAZolam [Xanax] 0.25 mg PO TID PRN 10/03/16 10/18/16 History Albuterol Inhaler [Ventolin Hfa 2 puff INHALATION RT-QID PRN 10/03/16 10/18/16 History Inhaler] Ensure 1 can PO W/BRKFST 10/03/16 10/18/16 History Ibuprofen [Motrin] 800 mg PO Q8HR PRN 10/03/16 10/18/16 History Multivitamin [Men's Multi-Vitamin] 1 tab PO DAILY 10/03/16 10/18/16 History Tiotropium 18 Mcg/Puff [Spiriva] 1 cap INHALATION RT-DAILY 10/03/16 10/18/16 History traZODone HCL 100 mg PO HS 10/03/16 10/18/16 History Allergies Allergy/AdvReac Type Severity Reaction Status Date / Time No Known Allergies Allergy Verified 10/03/16 12:22 Physical Exam Vitals: Vital Signs Temp Pulse Pulse Resp BP Pulse Ox 10/19/16 12:00 96.9 F L 121 H 20 130/71 96 10/19/16 11:46 110 H 10/19/16 11:38 108 H 10/19/16 11:28 104 H 10/19/16 08:51 104 H 10/19/16 08:41 100 10/19/16 08:00 97.5 F L 121 H 18 150/81 92 L 10/19/16 03:09 97.4 F L 112 H 20 143/78 92 L 10/19/16 00:00 98.8 F 113 H 20 144/81 92 L 10/18/16 21:45 125 H 20 159/91 96 10/18/16 20:06 121 H 10/18/16 20:01 114 H 10/18/16 20:00 98.2 F 115 H 20 135/95 10/18/16 16:00 96.7 F L 108 H 14 154/85 95 10/18/16 15:45 112 H 10/18/16 15:37 104 H Intake and Output 10/18/16 10/19/16 10/19/16 22:59 06:59 14:59 Intake Total 200 94.4 146.625 Output Total 200 Balance 200 -105.6 146.625 Intake: Intake, IV Titration 94.4 146.625 Amount Heparin Sodium,Porcine/ 94.4 146.625 D5w Pmx 25,000 unit In Dextrose/Water 1 500ml. bag @ 12 UNITS/KG/HR 16. 37 mls/hr IV .Q24H [facility] Rx #:[id number] Oral 200 Output: Urine 200 Other: Voiding Method Indwelling Catheter Indwelling Catheter Indwelling Catheter # Bowel Movements 1 Weight 69 kg 69 kg Patient Weight 10/20/16 06:59 Weight 69 kg - Constitutional General appearance: average body habitus, cooperative, mild distress - EENT Eyes: anicteric sclerae, poor dentition ENT: hearing grossly normal - Neck no supraclavicular, axillary, cervical adenopathy. Left inguinal area 3 areas of scar tissue noted, hard, not fixed. - Respiratory Respiratory: bilateral: diminished, rales (soft, scattered) - Cardiovascular Heart sounds: normal: S1, S2 leg Peripheral Edema: bilateral: Trace - Gastrointestinal hepatomegaly, 3FB below costal margin, hard, tenderness, no ascites or splenomegaly General gastrointestinal: hepatomegaly, normal bowel sounds, soft, tenderness - Integumentary numerous healed lesions to lower legs, massive scarring - Neurologic Neurologic: CNII-XII intact - Musculoskeletal Musculoskeletal: generalized weakness - Psychiatric Psychiatric: A&O x's 3, appropriate affect, intact judgment & insight Results CBC & Chem 7: 10/18/16 09:24 10/19/16 06:45 Labs: Abnormal Lab Results - Last 24 Hours (Table) 10/18/16 10/19/16 10/19/16 Range/Units 16:50 00:45 01:30 APTT 36.5 H (22.0-30.0) sec BUN (9-20) mg/dL Creatinine (0.66-1.25) mg/dL Glucose (74-99) mg/dL POC Glucose (mg/dL) 150 H (75-99) mg/dL Troponin I 0.332 H* (0.000-0.034) ng/mL Urine Protein (Negative) Urine Blood (Negative) Ur Leukocyte Esterase (Negative) Urine RBC (0-5) /hpf Urine WBC (0-5) /hpf Urine WBC Clumps (None) /hpf Urine Bacteria (None) /hpf Hyaline Casts (0-2) /lpf Urine Mucus (None) /hpf 10/19/16 10/19/16 10/19/16 Range/Units 06:45 06:45 06:45 APTT 132.7 H* (22.0-30.0) sec BUN 34 H (9-20) mg/dL Creatinine 2.48 H (0.66-1.25) mg/dL Glucose 133 H (74-99) mg/dL POC Glucose (mg/dL) (75-99) mg/dL Troponin I 0.301 H* (0.000-0.034) ng/mL Urine Protein (Negative) Urine Blood (Negative) Ur Leukocyte Esterase (Negative) Urine RBC (0-5) /hpf Urine WBC (0-5) /hpf Urine WBC Clumps (None) /hpf Urine Bacteria (None) /hpf Hyaline Casts (0-2) /lpf Urine Mucus (None) /hpf 10/19/16 10/19/16 Range/Units 07:04 12:00 APTT (22.0-30.0) sec BUN (9-20) mg/dL Creatinine (0.66-1.25) mg/dL Glucose (74-99) mg/dL POC Glucose (mg/dL) 128 H (75-99) mg/dL Troponin I (0.000-0.034) ng/mL Urine Protein 2+ H (Negative) Urine Blood Moderate H (Negative) Ur Leukocyte Esterase Large H (Negative) Urine RBC >182 H (0-5) /hpf Urine WBC 37 H (0-5) /hpf Urine WBC Clumps Rare H (None) /hpf Urine Bacteria Rare H (None) /hpf Hyaline Casts 23 H (0-2) /lpf Urine Mucus Rare H (None) /hpf Microbiology - Last 24 Hours (Table) 10/19/16 03:45 Urine Culture - Preliminary Urine,Catheterized CT scan - abdomen: report reviewed CT scan - chest: report reviewed CT scan - pelvis: report reviewed Venous US: report reviewed Assessment and Plan (1) Lymphadenopathy of other site Narrative/Plan: Lymphadenopathy bilateral groin. Case reviewed with Dr. Sanderson including labs, images and notes from previous hospitalization in Sep 2016. Based on the current events-recent cellulitis, infection and vascular insufficiency in lower extremities quite possibly the lymphadenopathy is reactive. Would recommend follow up evaluation with US in the groin after pt has treated infection and recovered from CHF/COPD exacerbation. No further work up from a Hem/Onc standpoint at this time. We will remain available to answer any questions and will monitor pt chart for any new findings or acute changes. Status: Acute
[2016-10-19 16:59] LABS: Glucose,Whole Blood 132 mg/dL (75-99)
[2016-10-19 21:02] LABS: Glucose,Whole Blood 130 mg/dL (75-99)
[2016-10-19] MEDS: traZODone HCL 100 MG TAB PO SCH (23:51)
[2016-10-20 05:55] LABS: Cyclic Citrullinated Pep IgG 17 UNITS (<20)
[2016-10-20 05:59] LABS: Glucose,Whole Blood 142 mg/dL (75-99)
[2016-10-20 07:38] LABS: HIV-1/HIV-2 Ab Screen NONREAC (NON REAC)
[2016-10-20] MEDS: SODIUM CHLORIDE 0.9% 1,000 ML IV SCH (07:41)
[2016-10-20] MEDS: FAMOTIDINE 20 MG TAB PO SCH (07:46)
[2016-10-20] MEDS: hydrALAZINE HCL 50 MG TAB PO SCH ×3 (07:46→22:11)
[2016-10-20] MEDS: methylPREDNISolone SOD SUCCI 40 MG/ML 1 ML VIAL IV SCH ×2 (07:47→22:09)
[2016-10-20] MEDS: ASPIRIN 325 MG TAB PO SCH (07:47)
[2016-10-20] MEDS: SEVELAMER 800 MG TAB PO SCH ×3 (07:47→16:53)
[2016-10-20 08:10] LABS: Basophils % (A) 0 %; CH 30.6; CHCM 31.6; Eosinophils # (A) 0.1 k/uL (0-0.7); Eosinophils % (A) 1 %; HCT 32.7 % (39.0-53.0); HDW 2.46; HGB 9.9 gm/dL (13.0-17.5); Hypochromasia Slight; Luc # (Auto) 0.06; Luc % (Auto) 0; Lymphocytes # (A) 0.4 k/uL (1.0-4.8); Lymphocytes % (A) 3 %; MCH 29.6 pg (25.0-35.0); MCHC 30.4 g/dL (31.0-37.0); MCV 97.4 fL (80.0-100.0); Mean Platelet Volume 6.9; Monocytes # (A) 0.5 k/uL (0-1.0); Monocytes % (A) 4 %; Neutrophils # (A) 11.4 k/uL (1.3-7.7); Neutrophils % (A) 92 %; RBC 3.36 m/uL (4.30-5.90); RDW 14.2 % (11.5-15.5); WBC 12.4 k/uL (3.8-10.6); WBC (Perox) 12.17
[2016-10-20 08:20] LABS: Potassium 4.4 mmol/L (3.5-5.1)
[2016-10-20] MEDS: IPRATROPIUM-ALBUTEROL 3 ML NEB INHALATION SCH ×4 (08:26→20:55)
--- NOTE | 2016-10-20 09:00 | PN ---
Patient had been initially maintained on IV fluids, which is now held. He remains on heparin drip. He has an indwelling Mary catheter and has had a 24-hour urine output of about 900 mL. I do not have labs from today. Yesterday creatinine was 2.48, which was increased from 1.92 on 10/18/2016. On examination, the patient is lying in bed. He is comfortable, not in any acute distress. Blood pressure is 146/78, heart rate 123 per minute. He is afebrile. EXAMINATION OF THE HEART: S1 and S2. EXAMINATION OF THE LUNGS: Decreased breath sounds in the bases. ABDOMEN: Soft, nontender. Examination of lower extremities shows edema 2+ bilaterally. BI DATA MODELER exam is grossly intact. Labs are not available from today. ASSESSMENT: 1. Acute kidney injury possibly acute tubular necrosis. Urine eosinophils are negative. Patient has fair amount of urine output. I will repeat his labs from today. Continue off of IV fluids. He is encouraged to increase oral intake. Serologies have been sent out, currently pending. 2. Right lower extremity cellulitis. 3. Atrial fibrillation with rapid ventricular response. 4. Severe pulmonary hypertension with lower extremity edema. PLAN: Repeat labs today. Encourage increased oral intake. Continue to avoid nephrotoxic agents. Monitor vancomycin levels closely. If renal function continues to worsen, we may need to discontinue the vancomycin.
[2016-10-20] MEDS: INSULIN LISPRO (humaLOG) 300 UNIT/3 ML VIAL SQ SCH ×4 (10:35→22:08)
[2016-10-20 12:07] LABS: Glucose,Whole Blood 114 mg/dL (75-99)
[2016-10-20] MEDS: MULTIVITAMINS, THERA 1 EACH TAB PO SCH (12:22)
[2016-10-20] MEDS ORDERED: IV VANCOMYCIN PER PHARMACY 1 EACH MISC MISCELLANE PRN (13:59)
--- NOTE | 2016-10-20 14:02 | P.PN ---
Subjective Principal diagnosis: hypoxic and hypercapnic respiratory failure patient seen and examined. Patient states his breathing is better today. He has not worn the BiPAP since admission. He underwent CT scanning which showed a right basilar opacity and an 8 mm right pulmonary nodule. It also showed small right greater than left bilateral pleural effusions. The patient has been afebrile. He states he is feeling better overall. Objective - Vital Signs Vital signs: Vital Signs Temp 97.5 F L 10/20/16 07:49 Pulse 106 H 10/20/16 11:59 Resp 18 10/20/16 07:49 BP 146/78 10/20/16 07:49 Pulse Ox 98 10/20/16 07:49 Intake & Output 10/19/16 10/20/16 10/20/16 18:59 06:59 18:59 Intake Total 146.625 240 840 Output Total 450 450 Balance -303.375 -210 840 Weight 69 kg 69.4 kg Intake: Intake, IV Titration 146.625 240 Amount Heparin Sodium,Porcine/ 146.625 D5w Pmx 25,000 unit In Dextrose/Water 1 500ml. bag @ 12 UNITS/KG/HR 16. 37 mls/hr IV .Q24H [facility] Rx #:[id number] Sodium Chloride 0.9% 1, 240 000 ml @ 50 mls/hr IV . Q20H [facility] Rx#:[id number] Oral 840 Output: Urine 450 450 Other: Voiding Method Indwelling Catheter Indwelling Catheter Indwelling Catheter # Bowel Movements 1 1 - Exam Gen.: Patient is alert and oriented, he does appear to have shaking chills Cardiovascular: Irregular rate and rhythm, S1/S2, tachycardic Lungs: Coarse breath sounds bilaterally Abdomen: Soft nontender nondistended positive bowel sounds Extremities: bilateral upper and lower extremity edema, scleral edema - Labs CBC & Chem 7: 10/20/16 07:00 10/20/16 07:00 Labs: Abnormal Lab Results - Last 24 Hours (Table) 10/19/16 10/19/16 10/19/16 Range/Units 15:45 16:57 21:00 WBC (3.8-10.6) k/uL RBC (4.30-5.90) m/uL Hgb (13.0-17.5) gm/dL Hct (39.0-53.0) % MCHC (31.0-37.0) g/dL Neutrophils # (1.3-7.7) k/uL Lymphocytes # (1.0-4.8) k/uL APTT 46.3 H (22.0-30.0) sec BUN (9-20) mg/dL Creatinine (0.66-1.25) mg/dL Glucose (74-99) mg/dL POC Glucose (mg/dL) 132 H 130 H (75-99) mg/dL 10/20/16 10/20/16 10/20/16 Range/Units 05:58 07:00 07:00 WBC (3.8-10.6) k/uL RBC (4.30-5.90) m/uL Hgb (13.0-17.5) gm/dL Hct (39.0-53.0) % MCHC (31.0-37.0) g/dL Neutrophils # (1.3-7.7) k/uL Lymphocytes # (1.0-4.8) k/uL APTT 44.3 H (22.0-30.0) sec BUN 40 H (9-20) mg/dL Creatinine 2.15 H (0.66-1.25) mg/dL Glucose 128 H (74-99) mg/dL POC Glucose (mg/dL) 142 H (75-99) mg/dL 10/20/16 10/20/16 Range/Units 07:00 12:04 WBC 12.4 H (3.8-10.6) k/uL RBC 3.36 L (4.30-5.90) m/uL Hgb 9.9 L (13.0-17.5) gm/dL Hct 32.7 L (39.0-53.0) % MCHC 30.4 L (31.0-37.0) g/dL Neutrophils # 11.4 H (1.3-7.7) k/uL Lymphocytes # 0.4 L (1.0-4.8) k/uL APTT (22.0-30.0) sec BUN (9-20) mg/dL Creatinine (0.66-1.25) mg/dL Glucose (74-99) mg/dL POC Glucose (mg/dL) 114 H (75-99) mg/dL Microbiology - Last 24 Hours (Table) 10/19/16 03:45 Urine Culture - Final Urine,Catheterized Assessment and Plan Plan: Acute hypoxic and hypercapnic respiratory failure requiring noninvasive mechanical ventilation Respiratory acidosis Probable polysubstance overdose Severe pulmonary hypertension with an RVSP of 61 mmHg Acute exacerbation of COPD Right lower lobe atelectasis versus infiltrate which needs to be followed closely Prior VQ scan done on 10/10/2016 was negative for chronic pulmonary emboli Toxic metabolic encephalopathy History of congestive heart failure Atrial fibrillation with rapid ventricular response History of IV drug abuse Acute kidney injury Hypomagnesemia NSTEMI Polysubstance abuse Emphysema Lymphadenopathy concerning for malignancy Recent bilateral lower extremity DVTs Anemia, macrocytic 8 mm pulmonary nodule Maintain sat > or = to 88% discontinue BiPAP Blood, urine, sputum cultures - no growth to date Consult cardio for NSTEMI Will start work up for PH serologically, will need outpatient PFT, PSG, possible RHC - although given IVDA patient is a poor candidate ABX: Ceftin, add Vanco pharmacy to dose Steroid taper Duonebs Avoid sedative medications GI Prophylaxis Ultrasound bilateral upper extremities given edema Patient will need follow-up on chest x-rays or computed tomography scan until right lower lobe is clear to ensure this is not malignant - 3 month follow up recommended. Appreciate gamal garcia
[2016-10-20] MEDS ORDERED: VANCOMYCIN 1,250 MG in SODIUM CHLORIDE 0.9% 250 ML IVPB ONE (15:00)
[2016-10-20] MEDS: HEPARIN SODIUM,PORCINE/D5W PMX 25,000 UNIT in DEXTROSE/WATER 1 500ML.BAG IV SCH (16:48)
[2016-10-20 16:55] LABS: Glucose,Whole Blood 110 mg/dL (75-99)
--- NOTE | 2016-10-20 17:04 | PN ---
DATE OF SERVICE: 10/20/2016 CHIEF COMPLAINT: Congestive heart failure, exacerbation of chronic obstructive pulmonary disease, generalized anasarca. HISTORY OF PRESENT ILLNESS: The gentleman is having more trouble with generalized edema. This may be related to his renal compromise. PHYSICAL EXAMINATION: He has periorbital edema once again. CHEST: Fairly clear. He is somewhat short of breath. Abdomen is soft, nontender. EXTREMITIES: Unchanged. IMPRESSION: 1. Anasarca. 2. Congestive heart failure. 3. Status post intravenous drug abuse. 4. Renal failure. PLAN: Increase ( ) diaphoresis.
--- NOTE | 2016-10-20 20:15 | P.PN ---
Subjective This patient is being treated for acute hypoxic respiratory failure secondary to COPD and possible pneumonia. Patient may have underlying mild congestive cardiac failure patient is comfortable in no acute respiratory distress noted. Objective - Vital Signs Vital signs: Vital Signs Temp 97.3 F L 10/20/16 16:00 Pulse 110 H 10/20/16 17:06 Resp 18 10/20/16 16:00 BP 139/69 10/20/16 16:00 Pulse Ox 96 10/20/16 16:00 Intake & Output 10/20/16 10/20/16 10/21/16 06:59 18:59 07:59 Intake Total 240 1340 Output Total 450 900 Balance -210 440 Weight 69.4 kg Intake: Intake, IV Titration 240 500 Amount Heparin Sodium,Porcine/ 500 D5w Pmx 25,000 unit In Dextrose/Water 1 500ml. bag @ 12 UNITS/KG/HR 16. 37 mls/hr IV .Q24H [facility] Rx #:[id number] Sodium Chloride 0.9% 1, 240 000 ml @ 50 mls/hr IV . Q20H [facility] Rx#:[id number] Oral 840 Output: Urine 450 900 Other: Voiding Method Indwelling Catheter Indwelling Catheter # Bowel Movements 1 - Exam Patient is comfortable. Heart first and second heart sounds are normal. Lungs reveal bilateral scattered wheezes. - Labs CBC & Chem 7: 10/20/16 07:00 10/20/16 07:00 Labs: Abnormal Lab Results - Last 24 Hours (Table) 10/19/16 10/20/16 10/20/16 Range/Units 21:00 05:58 07:00 WBC (3.8-10.6) k/uL RBC (4.30-5.90) m/uL Hgb (13.0-17.5) gm/dL Hct (39.0-53.0) % MCHC (31.0-37.0) g/dL Neutrophils # (1.3-7.7) k/uL Lymphocytes # (1.0-4.8) k/uL APTT (22.0-30.0) sec BUN 40 H (9-20) mg/dL Creatinine 2.15 H (0.66-1.25) mg/dL Glucose 128 H (74-99) mg/dL POC Glucose (mg/dL) 130 H 142 H (75-99) mg/dL 10/20/16 10/20/16 10/20/16 Range/Units 07:00 07:00 12:04 WBC 12.4 H (3.8-10.6) k/uL RBC 3.36 L (4.30-5.90) m/uL Hgb 9.9 L (13.0-17.5) gm/dL Hct 32.7 L (39.0-53.0) % MCHC 30.4 L (31.0-37.0) g/dL Neutrophils # 11.4 H (1.3-7.7) k/uL Lymphocytes # 0.4 L (1.0-4.8) k/uL APTT 44.3 H (22.0-30.0) sec BUN (9-20) mg/dL Creatinine (0.66-1.25) mg/dL Glucose (74-99) mg/dL POC Glucose (mg/dL) 114 H (75-99) mg/dL 10/20/16 Range/Units 16:41 WBC (3.8-10.6) k/uL RBC (4.30-5.90) m/uL Hgb (13.0-17.5) gm/dL Hct (39.0-53.0) % MCHC (31.0-37.0) g/dL Neutrophils # (1.3-7.7) k/uL Lymphocytes # (1.0-4.8) k/uL APTT (22.0-30.0) sec BUN (9-20) mg/dL Creatinine (0.66-1.25) mg/dL Glucose (74-99) mg/dL POC Glucose (mg/dL) 110 H (75-99) mg/dL Microbiology - Last 24 Hours (Table) 10/19/16 03:45 Urine Culture - Final Urine,Catheterized Assessment and Plan Plan: We will continue the current treatment. Patient's creatinine is improving. Patient needs to be treated with the diuretics. We will await the nephrologists recommendations.
[2016-10-20 20:37] LABS: Glucose,Whole Blood 113 mg/dL (75-99)
[2016-10-20] MEDS: ENOXAPARIN 60 MG/0.6 ML SYRINGE SQ SCH (22:07)
[2016-10-20] MEDS: traZODone HCL 100 MG TAB PO SCH (22:10)
[2016-10-21 05:47] LABS: Glucose,Whole Blood 142 mg/dL (75-99)
[2016-10-21] MEDS: INSULIN LISPRO (humaLOG) 300 UNIT/3 ML VIAL SQ SCH ×4 (07:01→22:31)
[2016-10-21] MEDS: SODIUM CHLORIDE 0.9% 1,000 ML IV SCH (07:02)
[2016-10-21] MEDS: methylPREDNISolone SOD SUCCI 40 MG/ML 1 ML VIAL IV SCH (07:30)
[2016-10-21] MEDS: ENOXAPARIN 60 MG/0.6 ML SYRINGE SQ SCH ×2 (07:31→22:30)
[2016-10-21] MEDS: FAMOTIDINE 20 MG TAB PO SCH ×2 (07:31→07:42)
[2016-10-21] MEDS: SEVELAMER 800 MG TAB PO SCH ×4 (07:31→17:03)
[2016-10-21] MEDS: hydrALAZINE HCL 50 MG TAB PO SCH ×2 (07:31→07:43)
[2016-10-21] MEDS: ASPIRIN 325 MG TAB PO SCH ×2 (07:31→07:42)
[2016-10-21] MEDS: IPRATROPIUM-ALBUTEROL 3 ML NEB INHALATION SCH ×4 (07:53→19:26)
[2016-10-21] MEDS ORDERED: VANCOMYCIN 1,250 MG in SODIUM CHLORIDE 0.9% 250 ML IVPB SCH (08:00)
[2016-10-21 11:53] LABS: Glucose,Whole Blood 107 mg/dL (75-99)
[2016-10-21] MEDS: MULTIVITAMINS, THERA 1 EACH TAB PO SCH (12:33)
--- NOTE | 2016-10-21 12:35 | PN ---
Patient is seen for followup for acute kidney injury. He is currently maintained on IV fluids at 50 mL an hour. No labs are available from today. Yesterday, creatinine was 2.15, which was down from 2.4 the day before. Patient has an indwelling Mary catheter with good urine output. On examination, blood pressure is 139/84, heart rate 104 per minute. He is afebrile. Examination of the heart, S1 and S2. Examination of the lungs, decreased breath sounds at the bases. Abdomen is soft, nontender, obese. Examination of the lower extremities, chronic skin changes, edema 2+ bilaterally. BED BUG EXTERMINATOR exam shows patient is moving all 4 extremities. Labs are not available from today. ASSESSMENT: 1. Acute kidney injury, most likely acute tubular necrosis, currently nonoliguric. Will repeat labs today. Encourage increased oral intake. I will discontinue the IV fluids. 2. Chronic lower extremity edema in a patient with severe pulmonary hypertension. 3. Atrial fibrillation with rapid ventricular response. 4. Right lower extremity cellulitis. PLAN: Encourage increased oral intake. Repeat labs today. If renal function is significantly improved, we may continue with the fluids; otherwise I will DC the fluids as his edema is worse.
[2016-10-21 13:19] LABS: Calcium 9.2 mg/dL (8.4-10.2); Potassium 4.3 mmol/L (3.5-5.1)
--- NOTE | 2016-10-21 14:27 | P.PN ---
Subjective Principal diagnosis: polysubstance overdose patient seen and examined. Patient states his breathing is better today. He has not worn the BiPAP since admission. He is complaining of worsening swelling. He states he is otherwise doing well. Objective - Vital Signs Vital signs: Vital Signs Temp 97.4 F L 10/21/16 11:15 Pulse 106 H 10/21/16 11:30 Resp 18 10/21/16 11:15 BP 150/73 10/21/16 11:15 Pulse Ox 96 10/21/16 11:15 Intake & Output 10/20/16 10/21/16 10/21/16 17:59 06:59 18:59 Intake Total 850 Output Total Balance 850 Weight Intake: Intake, IV Titration 850 Amount Heparin Sodium,Porcine/ D5w Pmx 25,000 unit In Dextrose/Water 1 500ml. bag @ 12 UNITS/KG/HR 16. 37 mls/hr IV .Q24H [facility] Rx #:[id number] Sodium Chloride 0.9% 1, 600 000 ml @ 50 mls/hr IV . Q20H [facility] Rx#:[id number] Vancomycin 1,250 mg In 250 Sodium Chloride 0.9% 250 ml @ 125 mls/hr IVPB Q48H [facility] Rx#:[id number] Oral Output: Urine Other: Voiding Method Indwelling Catheter # Bowel Movements - Exam Gen.: Patient is alert and oriented, he does appear to have shaking chills Cardiovascular: Irregular rate and rhythm, S1/S2, tachycardic Lungs: Coarse breath sounds bilaterally Abdomen: Soft nontender nondistended positive bowel sounds Extremities: bilateral upper and lower extremity edema, scleral edema - Labs CBC & Chem 7: 10/20/16 07:00 10/21/16 12:37 Labs: Abnormal Lab Results - Last 24 Hours (Table) 10/20/16 10/20/16 10/21/16 Range/Units 16:41 20:36 05:44 Carbon Dioxide (22-30) mmol/L BUN (9-20) mg/dL Creatinine (0.66-1.25) mg/dL Glucose (74-99) mg/dL POC Glucose (mg/dL) 110 H 113 H 142 H (75-99) mg/dL 10/21/16 10/21/16 Range/Units 11:52 12:37 Carbon Dioxide 33 H (22-30) mmol/L BUN 42 H (9-20) mg/dL Creatinine 1.50 H (0.66-1.25) mg/dL Glucose 112 H (74-99) mg/dL POC Glucose (mg/dL) 107 H (75-99) mg/dL Microbiology - Last 24 Hours (Table) 10/19/16 03:45 Urine Culture - Final Urine,Catheterized Assessment and Plan Plan: Acute hypoxic and hypercapnic respiratory failure requiring noninvasive mechanical ventilation Respiratory acidosis Probable polysubstance overdose Severe pulmonary hypertension with an RVSP of 61 mmHg Acute exacerbation of COPD Right lower lobe atelectasis versus infiltrate which needs to be followed closely Prior VQ scan done on 10/10/2016 was negative for chronic pulmonary emboli Toxic metabolic encephalopathy History of congestive heart failure Atrial fibrillation with rapid ventricular response History of IV drug abuse Acute kidney injury Hypomagnesemia NSTEMI Polysubstance abuse Emphysema Lymphadenopathy concerning for malignancy Recent bilateral lower extremity DVTs Anemia, macrocytic 8 mm pulmonary nodule Maintain sat > or = to 88% discontinue BiPAP Blood, urine, sputum cultures - no growth to date Cardio recommendations Will start work up for PH serologically, will need outpatient PFT, PSG, possible RHC - although given IVDA patient is a poor candidate ABX: Ceftin, add Vanco pharmacy to dose Steroid taper Duonebs Avoid sedative medications GI Prophylaxis Ultrasound bilateral upper extremities given edema Patient will need follow-up on chest x-rays or computed tomography scan until right lower lobe is clear to ensure this is not malignant - 3 month follow up recommended. Shae garcia
[2016-10-21] MEDS: VANCOMYCIN 1,250 MG in SODIUM CHLORIDE 0.9% 250 ML IVPB SCH (15:00)
[2016-10-21] MEDS: cloNIDine HCL 0.1 MG TAB PO SCH ×2 (15:01→22:30)
[2016-10-21] MEDS: FUROSEMIDE 10 MG/ML 4 ML VIAL IV SCH (15:01)
[2016-10-21 17:07] LABS: Glucose,Whole Blood 106 mg/dL (75-99)
--- NOTE | 2016-10-21 21:10 | PN ---
CHIEF COMPLAINT: Renal failure, anasarca, sepsis and intravenous drug abuse. HISTORY OF PRESENT ILLNESS: This gentleman is feeling a little bit better, although he is still edematous. He has not a fever. Renal function is improving. PHYSICAL EXAMINATION: CHEST: Clear. CARDIAC: Normal. ABDOMEN: Soft, nontender. He still has some periorbital edema. IMPRESSION: 1. Renal failure. 2. Intravenous drug abuse. 3. Sepsis. PLAN: Continue with current program and monitoring renal function until he is stable enough to be discharged.
[2016-10-21 21:25] LABS: Glucose,Whole Blood 98 mg/dL (75-99)
[2016-10-21] MEDS: traZODone HCL 100 MG TAB PO SCH (22:31)
[2016-10-22 06:27] LABS: Glucose,Whole Blood 98 mg/dL (75-99)
[2016-10-22 07:13] LABS: Anion Gap 6 mmol/L; Blood Urea Nitrogen 45 mg/dL (9-20); Calcium 9.1 mg/dL (8.4-10.2); Carbon Dioxide 34 mmol/L (22-30); Chloride 103 mmol/L (98-107); Glucose 102 mg/dL (74-99); Non-African American GFR(MDRD) 51 (>60 ml/min/1.73 sqM); Potassium 3.9 mmol/L (3.5-5.1); Sodium 143 mmol/L (137-145)
[2016-10-22] MEDS: IPRATROPIUM-ALBUTEROL 3 ML NEB INHALATION SCH ×4 (08:26→20:29)
[2016-10-22] MEDS: INSULIN LISPRO (humaLOG) 300 UNIT/3 ML VIAL SQ SCH ×4 (09:35→21:51)
[2016-10-22] MEDS: SEVELAMER 800 MG TAB PO SCH ×3 (09:35→17:11)
--- NOTE | 2016-10-22 09:46 | PN ---
This patient is being admitted with acute hypoxic respiratory failure and has been treated for pneumonia and congestive cardiac failure. Patient also has evidence of acute renal failure. Because urine output is improved. Creatinine has improved to 1.5. Patient continues to have a generalized leg edema. I would recommend to start the patient on IV diuretic therapy, if it is okay with the music therapy teacher.
[2016-10-22] MEDS: ASPIRIN 325 MG TAB PO SCH (10:37)
[2016-10-22] MEDS: cloNIDine HCL 0.1 MG TAB PO SCH ×3 (10:37→21:52)
[2016-10-22] MEDS: ENOXAPARIN 60 MG/0.6 ML SYRINGE SQ SCH (10:38)
[2016-10-22] MEDS: FAMOTIDINE 20 MG TAB PO SCH (10:38)
[2016-10-22] MEDS: methylPREDNISolone SOD SUCCI 40 MG/ML 1 ML VIAL IV SCH (10:39)
[2016-10-22] MEDS: FUROSEMIDE 10 MG/ML 4 ML VIAL IV SCH ×2 (10:39→21:52)
[2016-10-22] MEDS: MULTIVITAMINS, THERA 1 EACH TAB PO SCH (10:39)
--- NOTE | 2016-10-22 11:30 | CDI ---
In responding to this query, please exercise your independent professional judgment. The [facility] Coding Staff and Clinical Documentation Specialists appreciate your assistance in clarifying documentation, maintaining compliance with coding guidelines, accurately documenting patients condition and capturing severity of illness. The fact that a question is asked does not imply that any particular answer is desired or expected. Communication forms are a method of clarifying documentation and are not made part of the Legal Health Record. Thank you in advance for your clarification. Last Revision, October [address] [facility] [place] [address] Documentation Clarification Form Date: 10/22/2016 11:17:00 AM From: Stacie Bar CCS, CCDS Admit Date: 10/18/2016 10:47:00 AM Patient Name: Vj Hull Visit Number: [id number] Discharge Date: Dr. Jesus Henning: CHF is documented in the 10/20 cardiology progress note as mild congestive cardiac failure. History/Risk Factors: 61 yo male with significant history of IV drug abuse, presented with SOB, altered mental status & unresponsiveness. Also found to be in Atrial fibrillation w/RVR. Per documentation, the patient has a history of COPD & CHF also. Clinical Indicators: Resp distress, wheezes, accessory muscle use & decreased breath sounds. VSS: T 96, P 144, R 18, BP 102/58, PO 96 nrb 15%. BNP: 1590 Chest X Ray: Stable right lower lobe infiltrate and small effusion. Treatment: Albuterol INH, IV Solumedrol, IV Cardizem, IV fl rate 100 initially, IV Vancomycin, IV Dextrose/Heparin, IV Mag Sulfate, BiPAP. Admission to Telemetry. Consults: Cardiology, Nephrology, Hem/Onc, Vascular Surgery, Pulmonary, IR for poss PICC. In your professional opinion, can you please clarify the acuity and type of CHF if known? Acute Chronic Acute on Chronic AND Systolic Diastolic Systolic and Diastolic Cor Pulmonale (Right Sided HF w/ Pulmonary HTN) Unable to determine Other, please specify If known, please specify if Heart Failure is due to: Hypertension Rheumatic Fever Please document in your progress notes and discharge summary in order to capture severity of illness and risk of mortality. Include clinical findings that support your diagnosis. FYI: Press F11 to launch patient chart. Place X here if this finding has no clinical significance, is not applicable or if you are not able to provide any additional documentation. Thank You. ADRIÁN
[2016-10-22 11:59] LABS: Glucose,Whole Blood 106 mg/dL (75-99)
--- NOTE | 2016-10-22 12:55 | P.PN ---
Subjective Principal diagnosis: Polysubstance overdose Patient seen and examined. Patient states his breathing is better today. Is complaining of worsening edema. He has no other needs or complaints at this time. He denies fevers chills. Objective - Vital Signs Vital signs: Vital Signs Temp 97.8 F 10/22/16 04:00 Pulse 100 10/22/16 11:51 Resp 20 10/22/16 04:00 BP 145/82 10/22/16 04:00 Pulse Ox 90 L 10/22/16 04:00 Intake & Output 10/21/16 10/22/16 10/22/16 18:59 06:59 18:59 Intake Total 1130 0 Output Total 975 2400 Balance 155 -2400 0 Weight 67.7 kg Intake: Intake, IV Titration 1100 Amount Sodium Chloride 0.9% 1, 600 000 ml @ 50 mls/hr IV . Q20H [facility] Rx#:[id number] Vancomycin 1,250 mg In 500 Sodium Chloride 0.9% 250 ml @ 125 mls/hr IVPB Q48H [facility] Rx#:[id number] Oral 30 0 Output: Urine 975 2400 Other: Voiding Method Indwelling Catheter Indwelling Catheter # Bowel Movements 1 - Exam Gen.: Patient is alert and oriented, he does appear to have shaking chills Cardiovascular: Irregular rate and rhythm, S1/S2, tachycardic Lungs: Coarse breath sounds bilaterally Abdomen: Soft nontender nondistended positive bowel sounds Extremities: bilateral upper and lower extremity edema, scleral edema - Labs CBC & Chem 7: 10/20/16 07:00 10/22/16 06:45 Labs: Abnormal Lab Results - Last 24 Hours (Table) 10/21/16 10/21/16 10/22/16 Range/Units 12:37 16:59 06:45 Carbon Dioxide 33 H 34 H (22-30) mmol/L BUN 42 H 45 H (9-20) mg/dL Creatinine 1.50 H 1.41 H (0.66-1.25) mg/dL Glucose 112 H 102 H (74-99) mg/dL POC Glucose (mg/dL) 106 H (75-99) mg/dL 10/22/16 Range/Units 11:56 Carbon Dioxide (22-30) mmol/L BUN (9-20) mg/dL Creatinine (0.66-1.25) mg/dL Glucose (74-99) mg/dL POC Glucose (mg/dL) 106 H (75-99) mg/dL Assessment and Plan Plan: Acute hypoxic and hypercapnic respiratory failure requiring noninvasive mechanical ventilation Respiratory acidosis Probable polysubstance overdose Severe pulmonary hypertension with an RVSP of 61 mmHg Acute exacerbation of COPD Right lower lobe atelectasis versus infiltrate which needs to be followed closely Prior VQ scan done on 10/10/2016 was negative for chronic pulmonary emboli Toxic metabolic encephalopathy History of congestive heart failure Atrial fibrillation with rapid ventricular response History of IV drug abuse Acute kidney injury Hypomagnesemia NSTEMI Polysubstance abuse Emphysema Lymphadenopathy concerning for malignancy Recent bilateral lower extremity DVTs Anemia, macrocytic 8 mm pulmonary nodule Maintain sat > or = to 88% discontinue BiPAP Blood, urine, sputum cultures - no growth to date Cardio recommendations Will start work up for PH serologically, will need outpatient PFT, PSG, possible RHC - although given IVDA patient is a poor candidate ABX: Ceftin, add Vanco pharmacy to dose Steroid taper Duonebs Avoid sedative medications GI Prophylaxis Lasix BID Ultrasound bilateral upper extremities given edema Patient will need follow-up on chest x-rays or computed tomography scan until right lower lobe is clear to ensure this is not malignant - 3 month follow up recommended. Appreciate nephro jose Can follow up in pulmonary office with Dr. Gutierres for pulmonary hypertension
--- NOTE | 2016-10-22 14:00 | PN ---
CHIEF COMPLAINT: Congestive heart failure, anasarca, renal failure. HISTORY OF PRESENT ILLNESS: This gentleman is still having quite a bit of difficulty with edema. He has periorbital edema, as well as some in the lower extremities. He was running a low-grade fever and his renal function is improving slightly. PHYSICAL EXAMINATION: Chest is clear. Cardiac exam is normal. The abdomen is soft, nontender and he does have significant facial edema, particularly in the periorbital area. IMPRESSION: 1. Renal failure. 2. Intravenous drug abuse. 3. Anasarca. PLAN: Increase diuretic management and continue to follow up for heart failure. He will be moved off the floor today and will consider discharge planning.
[2016-10-22 14:04] LABS: Scleroderma 70 Antibody 5 UNITS (<20)
[2016-10-22 14:52] LABS: C-ANCA <1:20 Titer (<1:20); P-ANCA <1:20 Titer (<1:20)
[2016-10-22] MEDS ORDERED: VANCOMYCIN TROUGH DUE 1 EACH MISC MISCELLANE ONE (15:00)
[2016-10-22 17:10] LABS: Glucose,Whole Blood 119 mg/dL (75-99)
[2016-10-22] MEDS: VANCOMYCIN 1,250 MG in SODIUM CHLORIDE 0.9% 250 ML IVPB SCH (17:10)
--- NOTE | 2016-10-22 19:15 | PN ---
Patient is seen for followup for acute kidney injury. Patient was initially hydrated. His serum creatinine decreased to 1.5 mg/dL yesterday and he was started on Lasix for lower extremity edema. Patient has not been short of breath. He has been lying in bed most of the time. On examination today, blood pressure is 156/89, heart rate 96 per minute. He is afebrile. EXAMINATION OF THE HEART: S1 and S2. EXAMINATION OF THE LUNGS: Bilateral breath sounds are heard. Examination of lower extremities shows edema 2+ bilaterally; chronic changes in the lower extremities in the skin. SURGICAL INSTRUMENT REPAIR SPECIALIST exam is grossly intact. Labs show serum creatinine down to 1.4 today. Sodium 143, potassium 3.9. ASSESSMENT: 1. Acute kidney injury, currently improving. I will increase the Lasix to 40 mg IV q.12 hours. 2. Right lower extremity cellulitis, maintained on vancomycin. 3. Hypertension, currently controlled. 4. Chronic lower extremity edema with severe pulmonary hypertension. 5. Atrial fibrillation with controlled ventricular response now. PLAN: Increase Lasix to 40 mg q.12 hours.
[2016-10-22 21:11] LABS: Glucose,Whole Blood 122 mg/dL (75-99)
[2016-10-22] MEDS: METOPROLOL TARTRATE 25 MG TAB PO SCH (21:52)
[2016-10-22] MEDS: APIXABAN 5 MG TAB PO SCH (21:53)
--- NOTE | 2016-10-22 22:21 | PN ---
This patient was admitted with respiratory distress. He is feeling better. Patient has a history of atrial fibrillation. Patient is now currently in normal sinus rhythm. Patient was started on Lasix 40 mg IV b.i.d. His breathing is improved. Patient has been diuresing fairly well. His weight is down by 3 kg. First and second heart sounds are normal. Lungs are fairly clear to auscultation and percussion. Patient's creatinine is 1.4. We will discontinue the Lovenox and start on Eliquis 5 mg b.i.d. and we will start the patient on Lopressor 25 mg b.i.d.
[2016-10-23 06:28] LABS: Glucose,Whole Blood 107 mg/dL (75-99)
[2016-10-23] MEDS: INSULIN LISPRO (humaLOG) 300 UNIT/3 ML VIAL SQ SCH ×4 (06:44→21:26)
[2016-10-23] MEDS: SEVELAMER 800 MG TAB PO SCH ×3 (06:52→17:04)
[2016-10-23] MEDS: IPRATROPIUM-ALBUTEROL 3 ML NEB INHALATION SCH ×4 (08:34→20:47)
[2016-10-23] MEDS: FUROSEMIDE 10 MG/ML 4 ML VIAL IV SCH ×2 (09:03→21:25)
[2016-10-23] MEDS: APIXABAN 5 MG TAB PO SCH ×2 (09:03→21:25)
[2016-10-23] MEDS: METOPROLOL TARTRATE 25 MG TAB PO SCH ×2 (09:04→21:25)
[2016-10-23] MEDS: methylPREDNISolone SOD SUCCI 40 MG/ML 1 ML VIAL IV SCH (09:04)
[2016-10-23] MEDS: FAMOTIDINE 20 MG TAB PO SCH (09:04)
[2016-10-23] MEDS: cloNIDine HCL 0.1 MG TAB PO SCH ×3 (09:05→21:25)
--- NOTE | 2016-10-23 10:12 | P.PN ---
Subjective Patient is seen in follow-up for acute kidney injury. His baseline creatinine is near 1. Patient was recently admitted and was noted to have a right leg abscess. He did receive antibiotics. This time the patient was found unresponsive at home and subsequently brought to the hospital. His CK level was normal at 125. He is noted to have lower extremity edema. Denies any active chest pain or shortness of breath. He has a Mary catheter in place and is nonoliguric. Currently maintained on Lasix 40 mg IV twice daily. He has extensive history of IV drug abuse. w serologic workup as noted to be negative. Urine eosinophils are negative as well. He was in atrial fibrillation with RVR on admission which is now stable. Vital signs are stable. General: The patient appeared well nourished and normally developed. HEENT: Head exam is unremarkable. Neck is without jugular venous distension. LUNGS: Lungs are clear to auscultation and percussion. Breath sounds decreased. HEART: Rate and Rhythm are regular. First and second heart sounds normal. No murmurs, rubs or gallops. ABDOMEN: Abdominal exam reveals normal bowel sounds. Non-tender and non- distended. No evidence of peritonitis. EXTREMITITES: 1+ edema. Objective - Vital Signs Vital signs: Vital Signs Temp 97.6 F 10/22/16 23:00 Pulse 95 10/23/16 08:45 Resp 16 10/22/16 23:00 BP 134/74 10/22/16 23:00 Pulse Ox 98 10/23/16 08:35 Intake & Output 10/22/16 10/23/16 10/23/16 18:59 06:59 18:59 Intake Total 325 300 240 Output Total 1000 1800 400 Balance -675 -1500 -160 Weight 65.7 kg Intake: Oral 325 300 240 Output: Urine 1000 1800 400 Other: Voiding Method Indwelling Catheter Indwelling Catheter # Bowel Movements 1 - Labs CBC & Chem 7: 10/20/16 07:00 10/22/16 06:45 Labs: Abnormal Lab Results - Last 24 Hours (Table) 10/22/16 10/22/16 10/22/16 Range/Units 11:56 17:01 21:10 POC Glucose (mg/dL) 106 H 119 H 122 H (75-99) mg/dL 10/23/16 Range/Units 06:26 POC Glucose (mg/dL) 107 H (75-99) mg/dL Assessment and Plan Plan: Assessment: #1. Non-oliguric acute kidney injury secondary to ischemic ATN secondary to sepsis and hemodynamic instability. Serologic workup and urine eosinophils negative. Baseline creatinine is near 1 and elevated at 2.48 on admission. Renal function continues to improve with creatinine down to 1.4 as of yesterday. #2. Respiratory acidosis. Currently off BiPAP. #3. Atrial fibrillation with RVR. Now rate controlled. #4. Polysubstance drug abuse. #5. Severe pulmonary hypertension. #6. Hyperphosphatemia secondary to acute kidney injury. Plan: Continue Lasix 40 mg IV twice daily. May discontinue Mary catheter. Avoid nephrotoxic agents and hypotensive episodes. Continue Renvela with meals. Repeat phosphorus level as renal function improved. Repeat electrolytes in the morning.
[2016-10-23 11:55] LABS: Glucose,Whole Blood 108 mg/dL (75-99)
--- NOTE | 2016-10-23 14:12 | P.PN ---
Subjective Principal diagnosis: Polysubstance overdose Patient seen and examined. Patient states she is feeling fine. He denies shortness of breath and cough. He denies fevers and chills. He states he has no needs or concerns at this time. The patient apparently has not been out of bed. He was encouraged to get out of bed and take a shower today. Objective - Vital Signs Vital signs: Vital Signs Temp 97.0 F L 10/23/16 08:00 Pulse 92 10/23/16 12:33 Resp 16 10/23/16 08:00 BP 134/74 10/23/16 08:00 Pulse Ox 98 10/23/16 08:35 Intake & Output 10/22/16 10/23/16 10/23/16 18:59 06:59 18:59 Intake Total 325 300 240 Output Total 1000 1800 400 Balance -675 -1500 -160 Weight 65.7 kg Intake: Oral 325 300 240 Output: Urine 1000 1800 400 Other: Voiding Method Indwelling Catheter Indwelling Catheter Indwelling Catheter # Bowel Movements 1 - Exam Gen.: Patient is alert and oriented, he does appear to have shaking chills Cardiovascular: Irregular rate and rhythm, S1/S2, tachycardic Lungs: Coarse breath sounds bilaterally Abdomen: Soft nontender nondistended positive bowel sounds Extremities: bilateral upper and lower extremity edema, scleral edema - Labs CBC & Chem 7: 10/20/16 07:00 10/22/16 06:45 Labs: Abnormal Lab Results - Last 24 Hours (Table) 10/22/16 10/22/16 10/23/16 Range/Units 17:01 21:10 06:26 POC Glucose (mg/dL) 119 H 122 H 107 H (75-99) mg/dL 10/23/16 Range/Units 11:51 POC Glucose (mg/dL) 108 H (75-99) mg/dL Assessment and Plan Plan: Acute hypoxic and hypercapnic respiratory failure requiring noninvasive mechanical ventilation Respiratory acidosis Probable polysubstance overdose Severe pulmonary hypertension with an RVSP of 61 mmHg Acute exacerbation of COPD Right lower lobe atelectasis versus infiltrate which needs to be followed closely Prior VQ scan done on 10/10/2016 was negative for chronic pulmonary emboli Toxic metabolic encephalopathy History of congestive heart failure Atrial fibrillation with rapid ventricular response History of IV drug abuse Acute kidney injury Hypomagnesemia NSTEMI Polysubstance abuse Emphysema Lymphadenopathy concerning for malignancy Recent bilateral lower extremity DVTs Anemia, macrocytic 8 mm pulmonary nodule Maintain sat > or = to 88% discontinue BiPAP Blood, urine, sputum cultures - no growth to date Cardio recommendations Will start work up for PH serologically, will need outpatient PFT, PSG, possible RHC - although given IVDA patient is a poor candidate ABX: Ceftin, add Vanco pharmacy to dose Steroid taper - change to Prednisone Duonebs Avoid sedative medications GI Prophylaxis Lasix BID Patient will need follow-up on chest x-rays or computed tomography scan until right lower lobe is clear to ensure this is not malignant - 3 month follow up recommended. Appreciate nephro recs Can follow up in pulmonary office with Dr. Gutierres for pulmonary hypertension Consult PT and OT. Patient should be out of bed today.
[2016-10-23] MEDS: MULTIVITAMINS, THERA 1 EACH TAB PO SCH (15:50)
[2016-10-23] MEDS: VANCOMYCIN 1,250 MG in SODIUM CHLORIDE 0.9% 250 ML IVPB SCH (16:11)
[2016-10-23 16:49] LABS: Glucose,Whole Blood 126 mg/dL (75-99)
--- NOTE | 2016-10-23 20:41 | PN ---
This patient was admitted with acute respiratory distress. Patient has paroxysmal atrial fibrillation. Patient currently now is in normal sinus rhythm. Today he was walking with the help of the walker. Heart rate is 90 per minute. Oxygen saturation is 98%. First and second heart sounds are normal. Lungs are clear to auscultation and percussion. Patient continues to have bilateral leg edema. He has been responding to IV Lasix. Creatinine is 1.4. We will continue the Lasix 40 mg b.i.d. Patient is also on Eliquis 5 mg b.i.d.
[2016-10-23 20:46] LABS: Glucose,Whole Blood 115 mg/dL (75-99)
--- NOTE | 2016-10-23 21:31 | PN ---
DATE OF SERVICE: 10/23/2016 CHIEF COMPLAINT: COPD, respiratory failure, anasarca and IVDA. HISTORY OF PRESENT ILLNESS: This gentleman ( ) and he has diuresed a little bit. He is having a little bit less facial and lower extremity edema. PHYSICAL EXAMINATION: Patient is a little less puffy and edematous. Chest demonstrates occasional rales. Cardiac exam is normal. The abdomen is soft. EXTREMITIES: Improved. IMPRESSION: 1. Anasarca. 2. Respiratory failure. 3. Chronic obstructive pulmonary disease. 4. Intravenous drug abuse. PLAN: Move to regular floor today and gradually increase activity.
[2016-10-24 06:35] LABS: Basophils % (A) 0 %; CH 31.1; CHCM 32.5; Eosinophils # (A) 0.1 k/uL (0-0.7); Eosinophils % (A) 1 %; HCT 29.4 % (39.0-53.0); HDW 2.88; HGB 9.5 gm/dL (13.0-17.5); Luc # (Auto) 0.09; Luc % (Auto) 1; Lymphocytes % (A) 17 %; MCH 31.1 pg (25.0-35.0); MCHC 32.4 g/dL (31.0-37.0); Mean Platelet Volume 7.6; Monocytes # (A) 0.5 k/uL (0-1.0); Monocytes % (A) 7 %; Neutrophils # (A) 4.5 k/uL (1.3-7.7); Neutrophils % (A) 73 %; RBC 3.07 m/uL (4.30-5.90); RDW 13.8 % (11.5-15.5); WBC 6.2 k/uL (3.8-10.6); WBC (Perox) 6.33
[2016-10-24 06:46] LABS: Anion Gap 3 mmol/L; Blood Urea Nitrogen 47 mg/dL (9-20); Calcium 8.8 mg/dL (8.4-10.2); Chloride 98 mmol/L (98-107); Glucose 102 mg/dL (74-99); Non-African American GFR(MDRD) 55 (>60 ml/min/1.73 sqM); Potassium 3.9 mmol/L (3.5-5.1); Sodium 141 mmol/L (137-145)
[2016-10-24 07:02] LABS: Carbon Dioxide 40 mmol/L (22-30)
[2016-10-24 07:41] LABS: Glucose,Whole Blood 108 mg/dL (75-99)
[2016-10-24] MEDS: INSULIN LISPRO (humaLOG) 300 UNIT/3 ML VIAL SQ SCH ×4 (07:56→21:40)
[2016-10-24] MEDS: APIXABAN 5 MG TAB PO SCH ×2 (07:57→21:34)
[2016-10-24] MEDS: FUROSEMIDE 10 MG/ML 4 ML VIAL IV SCH (07:57)
[2016-10-24] MEDS: predniSONE 20 MG TAB PO SCH (07:57)
[2016-10-24] MEDS: SEVELAMER 800 MG TAB PO SCH ×3 (07:57→17:41)
[2016-10-24] MEDS: MULTIVITAMINS, THERA 1 EACH TAB PO SCH (07:58)
[2016-10-24] MEDS: cloNIDine HCL 0.1 MG TAB PO SCH ×3 (07:58→21:35)
[2016-10-24] MEDS: METOPROLOL TARTRATE 25 MG TAB PO SCH ×2 (07:58→21:35)
[2016-10-24] MEDS: FAMOTIDINE 20 MG TAB PO SCH ×2 (07:58→21:35)
[2016-10-24] MEDS: IPRATROPIUM-ALBUTEROL 3 ML NEB INHALATION SCH ×4 (08:36→19:42)
--- NOTE | 2016-10-24 09:40 | P.PN ---
Subjective 61-year-old being seen this morning on rounds sitting up on the edge of the bed. Patient's pleasant alert oriented 3. Patient is aware of the discharge plan tentatively being evaluated for possible subacute rehab clinical case manager's note indicates patient has been accepted at [facility] when stable the white count is significantly down this morning at 6.2 on October 20 was 12.4 hemoglobin stable at 9.5 has remained afebrile's current temp is 98.1 physical therapy notes reviewed patient would be appropriate candidate for rehab due to deconditioning Objective - Vital Signs Vital signs: Vital Signs Temp 98.1 F 10/24/16 07:00 Pulse 96 10/24/16 08:53 Resp 18 10/24/16 07:00 BP 105/56 10/24/16 07:00 Pulse Ox 95 10/24/16 08:38 Intake & Output 10/23/16 10/24/16 10/24/16 18:59 06:59 18:59 Intake Total 1060 Output Total 1600 2800 200 Balance -540 -2800 -200 Weight 66 kg Intake: Oral 1060 Output: Urine 1600 2800 200 Uretheral (Mary) 2000 Other: Voiding Method Indwelling Catheter Indwelling Catheter # Bowel Movements 1 - Exam Physical exam 61-year-old -[place] male sitting up on the edge of the bed taking a diet appears in no acute distress denies dizziness lightheadedness chest pain or shortness of breath Lungs dry crackles at the bases otherwise adequate air movement Heart S1-S2 audible regular Abdomen soft nontender currently indwelling Mary catheter in place one bowel movement documented tolerating a diet bowel tones present Extremities chronic nonpitting edema to the lower extremities - Labs CBC & Chem 7: 10/24/16 06:19 10/24/16 06:19 Labs: Abnormal Lab Results - Last 24 Hours (Table) 10/23/16 10/23/16 10/23/16 Range/Units 11:51 16:43 20:44 RBC (4.30-5.90) m/uL Hgb (13.0-17.5) gm/dL Hct (39.0-53.0) % Carbon Dioxide (22-30) mmol/L BUN (9-20) mg/dL Creatinine (0.66-1.25) mg/dL Glucose (74-99) mg/dL POC Glucose (mg/dL) 108 H 126 H 115 H (75-99) mg/dL 10/24/16 10/24/16 10/24/16 Range/Units 06:19 06:19 07:40 RBC 3.07 L (4.30-5.90) m/uL Hgb 9.5 L (13.0-17.5) gm/dL Hct 29.4 L (39.0-53.0) % Carbon Dioxide 40 H* (22-30) mmol/L BUN 47 H (9-20) mg/dL Creatinine 1.34 H (0.66-1.25) mg/dL Glucose 102 H (74-99) mg/dL POC Glucose (mg/dL) 108 H (75-99) mg/dL Assessment and Plan Plan: Impression Present on admission acute encephalopathy likely toxic suspect polysubstance overdose unintentional or intentional unable to determine Present on admission positive urine drug screen opiates, methadone, benzodiazepine detected History of IV heroin use last use 09/30/2016 Acute hypoxic respiratory failure necessitating use of BiPAP support Respiratory acidosis Hypo-magnesium present on admission Emphysema Computed tomography scan of the abdomen lymphadenopathy concerning for malignancy Dopplers to the bilateral lower extremities October 11 positive for DVT Anemia macrocytic Elevated troponin likely non-ST elevated ME Episode of atrial fibrillation with RVR Right lower lobe atelectasis pneumonia not ruled out Acute exacerbation of COPD Severe pulmonary hypertension with RVSP of 61 Nonoliguric acute kidney injury secondary to ischemic ATN secondary to hemodynamic instability. Rule out ALLERGIC interstitial nephritis. Baseline creatinine is near 1 and elevated at 1.92 today. Plan Continue BiPAP support per pulmonology's recommendations Consult cardiology elevated troponin Follow-up on recommendations by nephrology Monitor blood pressure and heart rate adjust the antihypertensive meds as indicated Prednisone 40 daily taper DVT and GI prophylaxis Discuss with an pulmonary about the IV antibiotics currently on vancomycin Stop IV Lasix changed to oral route Possible transfer to the ECF facility in the next 24 hours The above dictated assessment and findings were discussed with dr alvaro Robert and the plan of care have been dictated as directed. Neena Clark nurse practitioner acting as a scribe for dr john
[2016-10-24] MEDS: LEVOFLOXACIN 500 MG TAB PO SCH (12:04)
[2016-10-24 12:08] LABS: Glucose,Whole Blood 139 mg/dL (75-99)
[2016-10-24 16:46] LABS: Glucose,Whole Blood 132 mg/dL (75-99)
[2016-10-24] MEDS: FUROSEMIDE 40 MG TAB PO SCH (17:41)
--- NOTE | 2016-10-24 18:12 | PN ---
DATE OF SERVICE: 10/24/2016 CHIEF COMPLAINT: 1. CHF. 2. COPD. 3. Sepsis. 4. IVDA. HISTORY OF PRESENT ILLNESS: This gentleman is doing a little bit better. He has less edema. He feels better and his appetite is improving. He appears less short of breath. PHYSICAL EXAMINATION: CHEST: Clear. CARDIAC: Normal. ABDOMEN: Soft, nontender. There is less edema in general. IMPRESSION: 1. Sepsis. 2. Intravenous drug abuse. 3. Anasarca. PLAN: Continue with current treatment. He will be able to go home in a day or two at this rate.
[2016-10-24 20:35] LABS: Glucose,Whole Blood 223 mg/dL (75-99)
[2016-10-25 06:38] LABS: Blood Urea Nitrogen 39 mg/dL (9-20); Calcium 8.6 mg/dL (8.4-10.2); Chloride 93 mmol/L (98-107); Glucose 98 mg/dL (74-99); Magnesium 1.5 mg/dL (1.6-2.3); Non-African American GFR(MDRD) 57 (>60 ml/min/1.73 sqM); Potassium 3.2 mmol/L (3.5-5.1); Sodium 137 mmol/L (137-145)
[2016-10-25 06:45] LABS: Anion Gap 3 mmol/L
[2016-10-25 06:50] LABS: Carbon Dioxide 41 mmol/L (22-30)
[2016-10-25 07:19] LABS: Glucose,Whole Blood 112 mg/dL (75-99)
[2016-10-25] MEDS: INSULIN LISPRO (humaLOG) 300 UNIT/3 ML VIAL SQ SCH ×4 (07:19→22:31)
[2016-10-25] MEDS: IPRATROPIUM-ALBUTEROL 3 ML NEB INHALATION SCH ×4 (07:24→20:34)
[2016-10-25] MEDS: SEVELAMER 800 MG TAB PO SCH (08:15)
[2016-10-25] MEDS: APIXABAN 5 MG TAB PO SCH ×2 (08:16→22:31)
[2016-10-25] MEDS: cloNIDine HCL 0.1 MG TAB PO SCH ×3 (08:16→22:31)
[2016-10-25] MEDS: METOPROLOL TARTRATE 25 MG TAB PO SCH ×2 (08:17→22:31)
[2016-10-25] MEDS: FUROSEMIDE 40 MG TAB PO SCH ×2 (08:17→11:30)
[2016-10-25] MEDS: predniSONE 20 MG TAB PO SCH (08:17)
[2016-10-25] MEDS: FAMOTIDINE 20 MG TAB PO SCH ×2 (08:17→22:31)
--- NOTE | 2016-10-25 09:41 | PN ---
DATE OF SERVICE: 10/24/2016 HISTORY OF PRESENT ILLNESS: Patient is a 61-year-old -[place] male who came into the hospital after family found him unresponsive at home. He was found to have problems with respiratory acidosis and he was put on BiPAP at that time and had some problems with acute renal failure. He does have a significant history of COPD, hepatitis C and congestive heart failure. He also has a recent history of bilateral lower extremity DVTs. He also has a significant history of polysubstance abuse. He was also found to have severe pulmonary hypertension with RVSP 61 with plans for him to follow up with Dr. Gaona for his pulmonary hypertension will be needed. He would also benefit from having PFT and possibly a sleep study done also. He is seen today. He thinks that he may be discharged in the next day or so, states that he is feeling considerably better. Still has occasional cough. He states, though, that his sputum is clear. He is denying any pain at this time. He still has considerable edema to his lower extremities. He denies any nausea, vomiting. States that he is eating okay. On physical examination, vital signs show temperature 98.1, heart rate 92, respiratory rate 18, blood pressure 105/56, oxygen saturation on 3 L 95%. LABS: WBCs are 6.2, hemoglobin 9.5, hematocrit 29.4, platelets 177. Sodium 141, potassium 3.9, chloride 98. CO2 is 40. BUN 47, creatinine 1.34. Glucose 139. Calcium was 8.8. Blood cultures were negative. Urine was negative. GENERAL: He is a 61-year-old male in no acute respiratory distress at this time. HEENT: Pupils were reactive, mucous membranes slightly dry. NECK: Supple. Trachea is midline. No JVD is noted. Lung sounds diminished anteriorly, somewhat coarse posteriorly. CARDIOVASCULAR: S1, S2 heard. He does sound fairly regular at this time, though he does have a history of atrial fibrillation. ABDOMEN: Soft, nontender. EXTREMITIES: Plus one to two edema in the lower extremities. He states this is chronic. NEUROLOGIC: He appears awake, alert. IMPRESSION: 1. Acute encephalopathy on admission suspected to be related to polysubstance abuse. 2. Acute hypoxic respiratory failure where he did require BiPAP. 3. Respiratory acidosis on admission. 4. Severe pulmonary hypertension. 5. Acute on chronic exacerbation of chronic obstructive pulmonary disease. 6. History of atrial fibrillation. 7. Acute kidney injury. 8. Polysubstance abuse. 9. Bilateral lower extremity deep venous thromboses. 10. Anemia. 11. Pulmonary nodule. 12. Abdominal lymphadenopathy on CT scan. 13. Bxm-[id number]-[id number] myocardial infarction. 14. Right lower lobe atelectasis. PLAN: Continue with oxygen to keep saturations 90% or better. On discharge he would benefit from followup with Dr. Gaona for his pulmonary hypertension. He would also benefit from getting PFT and sleep study. Continue with nebulizer treatments and tapering steroids. Continue with GI and DVT prophylaxis. Would recommend CT scan on an outpatient basis in 2 to 3 months for followup of pulmonary nodule. Continue with antibiotic therapy. Agree with rehab placement. Will continue to follow patient with you until discharge. ADRIÁN
[2016-10-25 10:59] LABS: Glucose,Whole Blood 163 mg/dL (75-99)
[2016-10-25] MEDS ORDERED: POTASSIUM CHLORIDE ER 20 MEQ TAB.ER PO STA (11:09)
--- NOTE | 2016-10-25 11:12 | P.PN ---
Subjective Patient is seen in follow-up for acute kidney injury. His baseline creatinine is near 1. Patient was recently admitted and was noted to have a right leg abscess. He did receive antibiotics. This time the patient was found unresponsive at home and subsequently brought to the hospital. His CK level was normal at 125. He is noted to have lower extremity edema, which is improving. Denies any active chest pain or shortness of breath. . he is nonoliguric Currently maintained on Lasix 40 mg PO twice daily. He has extensive history of IV drug abuse. Serologic workup as noted to be negative. Urine eosinophils are negative as well. He was in atrial fibrillation with RVR on admission which is now stable. Vital signs are stable. General: The patient appeared well nourished and normally developed. HEENT: Head exam is unremarkable. Neck is without jugular venous distension. LUNGS: Lungs are clear to auscultation and percussion. Breath sounds decreased. HEART: Rate and Rhythm are regular. First and second heart sounds normal. No murmurs, rubs or gallops. ABDOMEN: Abdominal exam reveals normal bowel sounds. Non-tender and non- distended. No evidence of peritonitis. EXTREMITITES: Trace edema. Objective - Vital Signs Vital signs: Vital Signs Temp 98.3 F 10/25/16 07:00 Pulse 83 10/25/16 08:00 Resp 20 10/25/16 08:00 BP 142/80 10/25/16 07:00 Pulse Ox 95 10/25/16 07:00 Intake & Output 10/24/16 10/25/16 10/25/16 18:59 06:59 18:59 Intake Total 500 400 Output Total 200 875 Balance 300 -475 Intake: Oral 500 400 Output: Urine 200 875 Other: Voiding Method Indwelling Catheter Toilet Toilet Urinal Urinal # Bowel Movements 1 - Labs CBC & Chem 7: 10/24/16 06:19 10/25/16 06:15 Labs: Abnormal Lab Results - Last 24 Hours (Table) 10/24/16 10/24/16 10/24/16 Range/Units 12:07 16:45 20:16 Potassium (3.5-5.1) mmol/L Chloride (98-107) mmol/L Carbon Dioxide (22-30) mmol/L BUN (9-20) mg/dL Creatinine (0.66-1.25) mg/dL POC Glucose (mg/dL) 139 H 132 H 223 H (75-99) mg/dL Magnesium (1.6-2.3) mg/dL 10/25/16 10/25/16 10/25/16 Range/Units 06:15 06:57 10:57 Potassium 3.2 L (3.5-5.1) mmol/L Chloride 93 L (98-107) mmol/L Carbon Dioxide 41 H* (22-30) mmol/L BUN 39 H (9-20) mg/dL Creatinine 1.30 H (0.66-1.25) mg/dL POC Glucose (mg/dL) 112 H 163 H (75-99) mg/dL Magnesium 1.5 L (1.6-2.3) mg/dL Assessment and Plan Plan: Assessment: #1. Non-oliguric acute kidney injury secondary to ischemic ATN secondary to sepsis and hemodynamic instability. Serologic workup and urine eosinophils negative. Baseline creatinine is near 1 and elevated at 2.48 on admission. Renal function continues to improve with creatinine down to 1.3. #2. Respiratory acidosis. Currently off BiPAP. #3. Atrial fibrillation with RVR. Now rate controlled. #4. Polysubstance drug abuse. #5. Severe pulmonary hypertension. #6. Hyperphosphatemia secondary to acute kidney injury. Resolved. #7. Metabolic alkalosis. This can be due to underlying compensation for respiratory acidosis as well as volume contraction from diuretics. Plan: Hold tonight's dose of Lasix. Check ABG. Replace potassium. 40 mEq today. Replace magnesium. 2 g today. Avoid nephrotoxic agents and hypotensive episodes. Discontinue Renvela. Repeat electrolytes in the morning.
[2016-10-25] MEDS: MAGNESIUM SULFATE-D5W PMX 1 GM in DEXTROSE/WATER 1 100ML.BAG IVPB SCH ×2 (12:10→13:13)
[2016-10-25] MEDS: LEVOFLOXACIN 500 MG TAB PO SCH (12:11)
[2016-10-25] MEDS: MULTIVITAMINS, THERA 1 EACH TAB PO SCH (12:12)
--- NOTE | 2016-10-25 13:08 | PN ---
DATE OF SERVICE: 10/25/2016 He is doing better overall. He has minimal shortness of breath. He does not complain of any chest pain at this time. He is not using BiPAP at this time. He is awake and alert. On physical examination, his respiratory rate is 20, pulse rate of 83 temperature 98.3. O2 saturation on 3 L by nasal cannula is 95%. Blood pressure 142/80. HEENT is unremarkable. Chest reveals decreased breath sounds at the base. Cardiovascular system reveals an S1 and S2. Abdomen is soft. There is trace edema. Labs reveal sodium 137, potassium 3.2, chloride 93, bicarb 41, BUN 39, creatinine 1.3. Magnesium 1.5. IMPRESSION AT THIS TIME: 1. Metabolic encephalopathy. 2. Acute hypoxic respiratory failure for which he is doing better. 3. Pulmonary hypertension. 4. Bilateral deep venous thrombosis. Continue him on his current medications, which were reviewed. Agree with rehab placement at [facility]. Close outpatient followup regarding his respiratory issues and pulmonary hypertension would help. Agree with discharge planning.
--- NOTE | 2016-10-25 14:45 | P.DS ---
Providers Date of admission: 10/18/16 10:47 Expected date of discharge: 10/25/16 Attending physician: Gus Aguilar Consults: 10/18/16 13:14 Consult Physician Urgent Consulting Provider: Rona Gonzalez Consult Reason/Comments: pulm Do you want consulting provider notified?: Yes 10/18/16 13:16 Consult Physician Stat Consulting Provider: Jesus Henning Consult Reason/Comments: Elevated troponins Do you want consulting provider notified?: Yes 10/18/16 13:20 Consult Physician Stat Consulting Provider: Love Baez Consult Reason/Comments: renal Do you want consulting provider notified?: Yes 10/18/16 14:01 Consult Physician Stat Consulting Provider: Dwayne Ann Consult Reason/Comments: Abnormal CATadenopathy Do you want consulting provider notified?: Yes 10/18/16 14:03 Consult Physician Stat Consulting Provider: Katlin De Leon Consult Reason/Comments: need for a ivc filter Do you want consulting provider notified?: Yes Primary care physician: Gus Aguilar Hospital Course: This is a 61-year-old who presented on the day of admission to the emergency room via the EMS system after family found the patient unresponsive at home. Patient was unable to provide health history in the emergency room. Patient had an unknown down time. Patient was found to be an acute respiratory acidosis with acute hypoxic respiratory failure necessitating the need to be placed on BiPAP support. Patient does have a history of COPD hepatitis C and IV drug use. Patient was recently admitted on October 05 and discharged on September 13. At that admission the patient was treated for lower extremity cellulitis with an abscess on the right thigh. The urine drug screen in the emergency room was positive for methadone benzodiazepine opiates. The last admission patient was treated for right leg abscess was started on IV antibiotics and subsequently discharged on oral Ceftin. Patient does have a history of IV drug abuse. Use IV heroin last on September 30 2016. Patient was found have bilateral femoral-popliteal DVTs present since the last admission. Patient does have a 40 year history of IV drug use including using both bilateral femoral veins leg veins and skin popping suspect this is chronic. Additionally patient was found to be in a paroxysmal atrial fibrillation on admission had an episode of RVR. Patient has poor IV access and the patient has a history of using both internal jugular and femoral veins for IV heroin use. This admission patient was found to be in acute kidney injury secondary to ischemic ATN secondary to sepsis and hemodynamically and stable. On admission the creatinine was 2. 4. Hepatitis panel drawn last omission was negative electrolytes hypo-magnesium hypophosphorous were monitored and replaced. Echocardiogram shows severe pulmonary hypertension a cardiology consultation was requested for mildly elevated troponin present on admission Acute hypoxic and hypercapnic respiratory failure requiring noninvasive mechanical ventilation present on admission Respiratory acidosis Probable polysubstance overdose Severe pulmonary hypertension with an RVSP of 61 mmHg Acute exacerbation of COPD Right lower lobe atelectasis versus infiltrate which needs to be followed closely Prior VQ scan done on 10/10/2016 was negative for chronic pulmonary emboli Toxic metabolic encephalopathy Atrial fibrillation with rapid ventricular response History of IV drug abuse present on Hypomagnesemia Polysubstance abuse Lymphadenopathy concerning for malignancy Recent bilateral lower extremity DVTs Anemia, macrocytic 8 mm pulmonary nodule Present on admission acute encephalopathy likely toxic suspect polysubstance overdose unintentional or intentional unable to determine Present on admission positive urine drug screen opiates, methadone, benzodiazepine detected History of IV heroin use last use 09/30/2016 Acute hypoxic respiratory failure necessitating use of BiPAP support with respiratory acidosis Hypo-magnesium present on admission Emphysema Computed tomography scan of the abdomen lymphadenopathy concerning for malignancy Dopplers to the bilateral lower extremities October 11 positive for DVT Anemia macrocytic Elevated troponin likely non-ST elevated TX Episode of parosymsal atrial fibrillation with RVR Right lower lobe atelectasis pneumonia not ruled out Acute exacerbation of COPD Severe pulmonary hypertension with RVSP of 61 Nonoliguric acute kidney injury secondary to ischemic ATN secondary to hemodynamic instability. Rule out ALLERGIC interstitial nephritis. Baseline creatinine is near 1 and elevated at 1.92 today. metabolic alkalosis likely due to underlying compensation for respiratory acidosis as well as volume contraction from diuretics .The above dictated assessment and findings were discussed with dr alvaro Robert and the plan of care have been dictated as directed. Neena Clark nurse practitioner acting as a scribe for dr aguilar Patient Condition at Discharge: Serious Plan - Discharge Summary New Discharge Prescriptions: Levofloxacin [Levaquin] 500 mg PO Q24H #7 tab predniSONE 40 mg PO DAILY #8 tab Discharge Medication List Albuterol Inhaler [Ventolin Hfa Inhaler] 2 puff INHALATION RT-QID PRN 10/03/16 [ History] Ensure 1 can PO W/BRKFST 10/03/16 [History] Ibuprofen [Motrin] 800 mg PO Q8HR PRN 10/03/16 [History] Multivitamin [Men's Multi-Vitamin] 1 tab PO DAILY 10/03/16 [History] Tiotropium 18 Mcg/Puff [Spiriva] 1 cap INHALATION RT-DAILY 10/03/16 [History] traZODone HCL 100 mg PO HS 10/03/16 [History] Aspirin 325 mg PO DAILY #30 tab 10/11/16 [Rx] hydrALAZINE HCL [Apresoline] 50 mg PO TID #90 tab 10/11/16 [Rx] Apixaban [Eliquis] 5 mg PO BID tab 10/25/16 [Rx] Famotidine [Pepcid] 20 mg PO BID tab 10/25/16 [Rx] Furosemide [Lasix] 40 mg PO BID@0900,1600 tab 10/25/16 [Rx] INSULIN LISPRO (humaLOG) [humaLOG (formulary)] 0 unit SQ ACHS vial 10/25/16 [Rx ] Ipratropium-Albuterol Nebulize [Duoneb 0.5 mg-3 mg/3 ml Soln] 3 ml INHALATION RT -QID ampul.neb 10/25/16 [Rx] Levofloxacin [Levaquin] 500 mg PO Q24H #7 tab 10/25/16 [Rx] Metoprolol Tartrate [Lopressor] 25 mg PO BID tab 10/25/16 [Rx] cloNIDine HCL [Catapres] 0.3 mg PO TID tab 10/25/16 [Rx] predniSONE 40 mg PO DAILY #8 tab 10/25/16 [Rx] Follow up Appointment(s)/Referral(s): Gus Aguilar MD [Primary Care Provider] - 1-2 days Discharge Disposition: TRANSFER TO SNF/ECF
[2016-10-25 16:57] LABS: Glucose,Whole Blood 150 mg/dL (75-99)
[2016-10-25 20:19] LABS: Glucose,Whole Blood 169 mg/dL (75-99)
--- NOTE | 2016-10-25 20:51 | PN ---
CHIEF COMPLAINT: CHF, COPD, renal failure, sepsis and IVDA. HISTORY OF PRESENT ILLNESS: This gentleman is improving and he is looking much better. Edema is going down and he is up and about. We are working on discharge plan. PHYSICAL EXAM: Chest is clear. Cardiac is normal. ABDOMEN: Soft, nontender. Extremities are improving and there is less edema. IMPRESSION: 1. Chronic obstructive pulmonary disease. 2. Congestive heart failure. 3. Intravenous drug abuse. 4. Cellulitis and sepsis. PLAN: He may be going to [facility] tomorrow.
[2016-10-26 07:28] LABS: Glucose,Whole Blood 99 mg/dL (75-99)
[2016-10-26] MEDS: IPRATROPIUM-ALBUTEROL 3 ML NEB INHALATION SCH ×2 (07:33→10:52)
[2016-10-26 07:43] VITALS: BP 126/74; RESP 20; TEMP 97.5
[2016-10-26] MEDS: INSULIN LISPRO (humaLOG) 300 UNIT/3 ML VIAL SQ SCH ×2 (07:44→14:13)
[2016-10-26] MEDS: METOPROLOL TARTRATE 25 MG TAB PO SCH (08:11)
[2016-10-26 08:12] LABS: Blood Urea Nitrogen 34 mg/dL (9-20); Calcium 8.7 mg/dL (8.4-10.2); Chloride 95 mmol/L (98-107); Glucose 92 mg/dL (74-99); Non-African American GFR(MDRD) 52 (>60 ml/min/1.73 sqM); Potassium 3.8 mmol/L (3.5-5.1); Sodium 138 mmol/L (137-145)
[2016-10-26] MEDS: cloNIDine HCL 0.1 MG TAB PO SCH (08:12)
[2016-10-26] MEDS: FAMOTIDINE 20 MG TAB PO SCH (08:12)
[2016-10-26] MEDS: predniSONE 20 MG TAB PO SCH (08:12)
[2016-10-26] MEDS: FUROSEMIDE 40 MG TAB PO SCH ×2 (08:12)
[2016-10-26 08:19] LABS: Anion Gap 1 mmol/L
[2016-10-26 08:24] LABS: Carbon Dioxide 42 mmol/L (22-30)
[2016-10-26] MEDS ORDERED: FUROSEMIDE 40 MG TAB PO SCH (09:00)
--- NOTE | 2016-10-26 09:27 | P.PN ---
Subjective Patient is seen in follow-up for acute kidney injury. His baseline creatinine is near 1. Patient was recently admitted and was noted to have a right leg abscess. He did receive antibiotics. This time the patient was found unresponsive at home and subsequently brought to the hospital. His CK level was normal at 125. He is noted to have lower extremity edema, which is improving. Denies any active chest pain or shortness of breath. He is nonoliguric. Currently maintained on Lasix 40 mg PO once daily. He has extensive history of IV drug abuse. Serologic workup as noted to be negative. Urine eosinophils are negative as well. He was in atrial fibrillation with RVR on admission which is now stable. Vital signs are stable. General: The patient appeared well nourished and normally developed. HEENT: Head exam is unremarkable. Neck is without jugular venous distension. LUNGS: Lungs are clear to auscultation and percussion. Breath sounds decreased. HEART: Rate and Rhythm are regular. First and second heart sounds normal. No murmurs, rubs or gallops. ABDOMEN: Abdominal exam reveals normal bowel sounds. Non-tender and non- distended. No evidence of peritonitis. EXTREMITITES: Trace edema. Objective - Vital Signs Vital signs: Vital Signs Temp 97.5 F L 10/26/16 07:00 Pulse 92 10/26/16 07:43 Resp 20 10/26/16 07:00 BP 126/74 10/26/16 07:00 Pulse Ox 99 10/26/16 07:00 Intake & Output 10/25/16 10/26/16 10/26/16 18:59 06:59 18:59 Intake Total 400 240 Output Total 700 450 Balance -300 -210 Weight 66 kg Intake: Oral 400 240 Output: Urine 700 450 Other: Voiding Method Toilet Toilet Urinal Urinal - Labs CBC & Chem 7: 10/24/16 06:19 10/26/16 07:28 Labs: Abnormal Lab Results - Last 24 Hours (Table) 10/25/16 10/25/16 10/25/16 Range/Units 10:57 16:48 20:16 Chloride (98-107) mmol/L Carbon Dioxide (22-30) mmol/L BUN (9-20) mg/dL Creatinine (0.66-1.25) mg/dL POC Glucose (mg/dL) 163 H 150 H 169 H (75-99) mg/dL 10/26/16 Range/Units 07:28 Chloride 95 L (98-107) mmol/L Carbon Dioxide 42 H* (22-30) mmol/L BUN 34 H (9-20) mg/dL Creatinine 1.39 H (0.66-1.25) mg/dL POC Glucose (mg/dL) (75-99) mg/dL Assessment and Plan Plan: Assessment: #1. Non-oliguric acute kidney injury secondary to ischemic ATN secondary to sepsis and hemodynamic instability. Serologic workup and urine eosinophils negative. Baseline creatinine is near 1 and elevated at 2.48 on admission. Renal function stable with creatinine at 1.39 today. #2. Respiratory acidosis. Currently off BiPAP. Resolved. #3. Atrial fibrillation with RVR. Now rate controlled. #4. Polysubstance drug abuse. #5. Severe pulmonary hypertension. #6. Hyperphosphatemia secondary to acute kidney injury. Resolved. #7. Metabolic alkalosis. Mostly due to volume contraction from diuresis. ABG reviewed. Plan: Continue Lasix 40 mg once daily. Encourage oral intake. Avoid nephrotoxic agents and hypotensive episodes. Potential discharge to ECF today. Will need repeat BMP checked within 2-3 days of discharge and follow-up as an outpatient in the next 1-2 weeks.
[2016-10-26 09:32] LABS: Amorphous Sediment,Urine Rare /hpf; Appearance,Urine Clear (Clear); Bacteria,Urine Rare /hpf; Bilirubin,Urine Negative (Negative); Glucose,Urine (UA) Negative (Negative); Ketones,Urine Negative (Negative); Leukocyte Esterase,Urine Negative (Negative); Nitrite,Urine Negative (Negative); Particle Count 7608; Protein,Urine 3+ (Negative); RBC,Urine 117 /hpf (0-5); Specific Gravity,Urine 1.014 (1.001-1.035); Squamous Epithelial Cell,Urine <1 /hpf (0-4); UA Billing (MACRO vs. MICRO) MICRO; Urobilinogen,Urine <2.0 mg/dL (<2.0); WBC,Urine 13 /hpf (0-5)
[2016-10-26] MEDS: APIXABAN 5 MG TAB PO SCH (10:19)
--- NOTE | 2016-10-26 10:20 | P.PN ---
Subjective This is a 61-year-old -Citizen Of [place] male who is being evaluated and examined today on the fifth floor. This patient came into the hospital after family found him unresponsive at home. He was found to have some respiratory acidosis and he was put on BiPAP at that time. This patient is also known to have issues with acute renal failure. This patient does have a significant history for COPD, hepatitis C and congestive heart failure. He recently also had bilateral lower extremity DVTs. He has a significant history for polysubstance abuse. The patient was also found to have severe pulmonary hypertension. Upon examination the patient is lying down in bed and feels somewhat better than before. He states that he has an occasional cough with clear sputum. He denies any pain at this time he continues to have a considerable amount of edema to his bilateral lower extremities. Objective - Vital Signs Vital signs: Vital Signs Temp 97.5 F L 10/26/16 07:00 Pulse 92 10/26/16 07:43 Resp 20 10/26/16 07:00 BP 126/74 10/26/16 07:00 Pulse Ox 99 10/26/16 07:00 Intake & Output 10/25/16 10/26/16 10/26/16 18:59 06:59 18:59 Intake Total 400 240 Output Total 700 450 Balance -300 -210 Weight 66 kg Intake: Oral 400 240 Output: Urine 700 450 Other: Voiding Method Toilet Toilet Urinal Urinal - Exam GENERAL EXAM: Alert, active, comfortable in no apparent distress. HEAD: Normocephalic. EYES: Normal reaction of pupils, equal size. NOSE: Clear with pink turbinates. THROAT: No erythema or exudates. NECK: No masses, no JVD. CHEST: No chest wall deformity. LUNGS: Lung sounds are diminished bilaterally and are coarse throughout. CVS: S1 and S2 normal with no audible mumurs, regular rhythm. ABDOMEN: No hepatosplenomegaly, normal bowel sounds, no guarding or rigidity. EXTREMITIES: +2 chronic edema noted, pedal pulses palpable. SKIN: No rashes CENTRAL NERVOUS SYSTEM: No focal deficits, tone is normal in all 4 extremities. - Labs CBC & Chem 7: 10/24/16 06:19 10/26/16 07:28 Labs: Abnormal Lab Results - Last 24 Hours (Table) 10/25/16 10/25/16 10/25/16 Range/Units 10:57 16:48 20:16 Chloride (98-107) mmol/L Carbon Dioxide (22-30) mmol/L BUN (9-20) mg/dL Creatinine (0.66-1.25) mg/dL POC Glucose (mg/dL) 163 H 150 H 169 H (75-99) mg/dL Urine Protein (Negative) Urine Blood (Negative) Urine RBC (0-5) /hpf Urine WBC (0-5) /hpf Amorphous Sediment (None) /hpf Urine Bacteria (None) /hpf 10/26/16 10/26/16 Range/Units 07:28 09:06 Chloride 95 L (98-107) mmol/L Carbon Dioxide 42 H* (22-30) mmol/L BUN 34 H (9-20) mg/dL Creatinine 1.39 H (0.66-1.25) mg/dL POC Glucose (mg/dL) (75-99) mg/dL Urine Protein 3+ H (Negative) Urine Blood Large H (Negative) Urine RBC 117 H (0-5) /hpf Urine WBC 13 H (0-5) /hpf Amorphous Sediment Rare H (None) /hpf Urine Bacteria Rare H (None) /hpf Assessment and Plan Plan: Assessment Acute encephalopathy on admission suspected to be related to polysubstance abuse Acute hypoxic respiratory failure which did require BiPAP Respiratory acidosis on admission Severe pulmonary hypertension Acute on chronic exacerbation of chronic obstructive pulmonary disease History of atrial fibrillation Acute kidney injury Polysubstance abuse Bilateral lower extremity deep vein thrombosis Anemia Pulmonary nodules Non-ST elevated myocardial infarction Abdominal lymphadenopathy on computed tomography scan Right lower lobe atelectasis Plan Medications have been reviewed and will be continued at this time. Oxygen is to be continued to keep saturations at 90% or better. It is recommended that this patient be set up for PFT and possibly a sleep study in the outpatient setting as well. The patient should have a repeat computed tomography scan in 2 -3 months for follow-up of pulmonary nodule. We will continue to monitor this patient and adjust treatment as necessary. This patient is planned for discharge to rehab facility today. Please note we are covering for Dr. Meme Frazire I performed an examination of the patient and discussed their management with the nurse practitioner. I have reviewed the nurse practitioner's note and agree with the documented findings and plan of care.
[2016-10-26 11:52] LABS: Glucose,Whole Blood 115 mg/dL (75-99)
[2016-10-26 12:30] VITALS: PULSE 81
[2016-10-26] MEDS: LEVOFLOXACIN 500 MG TAB PO SCH (14:13)
[2016-10-26] MEDS: MULTIVITAMINS, THERA 1 EACH TAB PO SCH (14:13)
[2016-10-26 16:01] LABS: ABG PH 7.49 (7.35-7.45)
[2016-10-26 16:02] LABS: ABG Base Excess 9.9 mmol/L; ABG HCO3 34 mmol/L (21-25); ABG PCO2 45 mmHg (35-45); ABG PO2 85 mmHg (83-108); ABG TCO2 35 mmol/L (19-24)
--- NOTE | 2016-10-26 20:53 | PN ---
DATE OF SERVICE: 10/26/2016 CHIEF COMPLAINT: COPD, congestive heart failure, sepsis, respiratory failure, renal failure, as well as IVDA. HISTORY OF PRESENT ILLNESS: This gentleman continues to do well, and he is probably going to the residential as soon as arrangements can be made. PHYSICAL EXAMINATION: His chest is quite clear. Cardiac exam is normal. The abdomen is soft, nontender. IMPRESSION: 1. Exacerbation of chronic obstructive pulmonary disease. 2. Congestive heart failure. 3. Intravenous drug abuse. PLAN: He may be going to [facility] today, and this will be arranged by the nurse practitioner.
--- NOTE | 2016-11-14 08:37 | CDI ---
In responding to this query, please exercise your independent professional judgment. The [facility] Coding Staff and Clinical Documentation Specialists appreciate your assistance in clarifying documentation, maintaining compliance with coding guidelines, accurately documenting patients condition and capturing severity of illness. The fact that a question is asked does not imply that any particular answer is desired or expected. Communication forms are a method of clarifying documentation and are not made part of the Legal Health Record. Thank you in advance for your clarification. Last Revision, October 2015 Layla Cummins [address] [facility] [place] [address] Documentation Clarification Form Date: 10/22/2016 11:17:00 AM From: Stacie Bar CCS, CCDS Admit Date: 10/18/2016 10:47:00 AM Patient Name: Vj Hull Visit Number: [id number] Discharge Date: 10/26/2016 Please respond in documentation prior to signing this query. Dr. Petty Henning: CHF is documented in the 10/20 cardiology progress note as mild congestive cardiac failure. History/Risk Factors: 61 yo male with significant history of IV drug abuse, presented with SOB, altered mental status & unresponsiveness. Also found to be in Atrial fibrillation w/RVR. Per documentation, the patient has a history of COPD & CHF also. Clinical Indicators: Resp distress, wheezes, accessory muscle use & decreased breath sounds. VSS: T 96, P 144, R 18, BP 102/58, PO 96 nrb 15%. BNP: 1590 Chest X Ray: Stable right lower lobe infiltrate and small effusion. Treatment: Albuterol INH, IV Solumedrol, IV Cardizem, IV fl rate 100 initially, IV Vancomycin, IV Dextrose/Heparin, IV Mag Sulfate, BiPAP. Admission to Telemetry. Consults: Cardiology, Nephrology, Hem/Onc, Vascular Surgery, Pulmonary, IR for poss PICC. In your professional opinion, can you please clarify the acuity and type of CHF if known? Acute Chronic Acute on Chronic AND Systolic Diastolic Systolic and Diastolic Cor Pulmonale (Right Sided HF w/ Pulmonary HTN) Unable to determine Other, please specify If known, please specify if Heart Failure is due to: Hypertension Rheumatic Fever Please document in your progress notes and discharge summary in order to capture severity of illness and risk of mortality. Include clinical findings that support your diagnosis. FYI: Press F11 to launch patient chart. Place X here if this finding has no clinical significance, is not applicable or if you are not able to provide any additional documentation. Thank You. ADRIÁN
== END 2016-10-26 13:05 | DRG 917 ==
LOC: EC 08:15 → 6SEL 10:47 → 5MS5E 10-23 21:56
PROVIDERS: ADMIT Family Medicine; ATTEND Family Medicine
PROC: 05HM33Z Insertion of Infusion Device into Right Internal Jugular Vein, Percutaneous Approach (ICD-10-PCS; principal; 2016-10-18 18:02)
PROC: B513ZZA Fluoroscopy of Right Jugular Veins, Guidance (ICD-10-PCS; 2016-10-18 18:02)
PROC: B543ZZA Ultrasonography of Right Jugular Veins, Guidance (ICD-10-PCS; 2016-10-18 18:02)
DX: T40.1X1A Poisoning by heroin, accidental (unintentional), initial encounter (principal); A41.9 Sepsis, unspecified organism; I21.4 Non-ST elevation (NSTEMI) myocardial infarction; N17.0 Acute kidney failure with tubular necrosis; J18.9 Pneumonia, unspecified organism; J96.01 Acute respiratory failure with hypoxia; J96.02 Acute respiratory failure with hypercapnia; G92 Toxic encephalopathy; I50.9 Heart failure, unspecified; E87.4 Mixed disorder of acid-base balance; I82.403 Acute embolism and thrombosis of unspecified deep veins of lower extremity, bilateral; I82.419 Acute embolism and thrombosis of unspecified femoral vein; I82.439 Acute embolism and thrombosis of unspecified popliteal vein; J44.0 Chronic obstructive pulmonary disease with (acute) lower respiratory infection; J44.1 Chronic obstructive pulmonary disease with (acute) exacerbation; J98.11 Atelectasis; L03.115 Cellulitis of right lower limb; T42.4X1A Poisoning by benzodiazepines, accidental (unintentional), initial encounter; I27.2 Other secondary pulmonary hypertension; E83.39 Other disorders of phosphorus metabolism; E83.42 Hypomagnesemia; F11.10 Opioid abuse, uncomplicated; F17.200 Nicotine dependence, unspecified, uncomplicated; I10 Essential (primary) hypertension; I48.0 Paroxysmal atrial fibrillation; Z79.01 Long term (current) use of anticoagulants; Z79.2 Long term (current) use of antibiotics; Z79.82 Long term (current) use of aspirin; Z82.49 Family history of ischemic heart disease and other diseases of the circulatory system; Z91.19 Patient's noncompliance with other medical treatment and regimen; R91.1 Solitary pulmonary nodule; B19.20 Unspecified viral hepatitis C without hepatic coma; Z79.899 Other long term (current) drug therapy
CPT/HCPCS: 36415; 36556; 36569; 36600; 51702; 71010; 71250; 76937; 77001; 80048; 80053; 80202; 80306; 80320; 81001; 82550; 82553; 82805; 83520; 83735; 83880; 84100; 84439; 84443; 84484; 85025; 85610; 85730; 86038; 86200; 86235; 86255; 86431; 87040; 87086; 87205; 87389; 93005; 93970; 94640; 94644; 94660; 94760; 96361; 96374; 99291

== ENCOUNTER → 2016-12-13 | Outpatient (CLI) | payer OTHER | END | disposition home or self-care (01) | LOC: LABWHC1 14:02 | PROVIDERS: ATTEND Family Medicine | DX: Z53.9 Procedure and treatment not carried out, unspecified reason (principal) ==

== ENCOUNTER → 2016-12-14 | Outpatient (CLI) | payer OTHER ==
[2016-12-14 12:23] LABS: INR 1.1 (<1.1); Prothrombin Time 11.5 sec (9.0-12.0)
== END | disposition home or self-care (01) ==
LOC: LABWHC1 10:50
PROVIDERS: ATTEND Family Medicine
DX: D68.9 Coagulation defect, unspecified (principal)
CPT/HCPCS: 36415; 85610

== ENCOUNTER → 2016-12-19 | Outpatient (CLI) | payer OTHER ==
[2016-12-19 15:37] LABS: Creatinine,Urine Random 90.9 mg/dL
[2016-12-19 16:02] LABS: CH 29.6; CHCM 29.9; HCT 26.7 % (39.0-53.0); HDW 2.93; Hypochromasia Marked; MCH 29.9 pg (25.0-35.0); MCV 99.4 fL (80.0-100.0); Mean Platelet Volume 6.8; RBC 2.68 m/uL (4.30-5.90); RDW 13.9 % (11.5-15.5); WBC 5.8 k/uL (3.8-10.6)
[2016-12-19 16:41] LABS: ALT 19 U/L (21-72); AST 28 U/L (17-59); Alkaline Phosphatase 45 U/L (38-126); Anion Gap 9 mmol/L; Blood Urea Nitrogen 10 mg/dL (9-20); Calcium 9.3 mg/dL (8.4-10.2); Carbon Dioxide 31 mmol/L (22-30); Chloride 104 mmol/L (98-107); Glucose 134 mg/dL (74-99); Iron 39 ug/dL (49-181); Magnesium 1.4 mg/dL (1.6-2.3); Non-African American GFR(MDRD) >60 (>60 ml/min/1.73 sqM); Phosphorous 3.3 mg/dL (2.5-4.5); Potassium 3.9 mmol/L (3.5-5.1); Sodium 144 mmol/L (137-145); Total Bilirubin 0.4 mg/dL (0.2-1.3); Uric Acid 6.7 mg/dL (3.5-8.5)
[2016-12-19 16:50] LABS: % Iron Saturation 18.4 % (20-50); Total Iron Binding Capacity 212 ug/dL (261-462)
== END | disposition home or self-care (01) ==
LOC: LABWHC1 14:01
PROVIDERS: ATTEND Nurse Practitioner Family
DX: N17.9 Acute kidney failure, unspecified (principal); D64.9 Anemia, unspecified; R80.9 Proteinuria, unspecified; E21.3 Hyperparathyroidism, unspecified; E55.9 Vitamin D deficiency, unspecified; M10.9 Gout, unspecified
CPT/HCPCS: 36415; 80053; 82306; 82570; 82728; 83540; 83550; 83735; 83970; 84100; 84156; 84550; 85027

== ENCOUNTER 2016-12-20 14:28 | Inpatient (IN) | payer OTHER ==
--- NOTE | 2016-12-20 15:05 | ED ---
General Adult HPI - General Chief complaint: Arrhythmia/Palpitations Stated complaint: Short of breath Time Seen by Provider: 12/20/16 14:44 Source: patient, RN notes reviewed, old records reviewed Mode of arrival: wheelchair Limitations: no limitations - History of Present Illness Initial comments: This is a 61-year-old male in the ER for evaluation. This patient presents today for evaluation of swelling and edema. Patient has diffuse peripheral edema facial edema leg edema. Patient is an some renal failure patient, patient was at his doctor's office earlier today and sent to ER for evaluation and treatment. Patient was seeing his art sales consultant who noticed his physical exam findings and decided to send the emergency room. Patient does feel weak but denies any other complaints - Related Data Home Medications Medication Instructions Recorded Confirmed Albuterol Inhaler [Ventolin Hfa 2 puff INHALATION RT-Q4H PRN 10/03/16 12/20/16 Inhaler] Ibuprofen [Motrin] 800 mg PO QID 10/03/16 12/20/16 Tiotropium 18 Mcg/Puff [Spiriva] 1 cap INHALATION RT-DAILY 10/03/16 12/20/16 ALPRAZolam [Xanax] 0.5 mg PO HS PRN 12/20/16 12/20/16 Omeprazole 20 mg PO DAILY 12/20/16 12/20/16 Spironolactone-Hctz 25-25Mg 1 tab PO DAILY 12/20/16 12/20/16 [Aldactazide 25-25Mg] Warfarin [Coumadin] 5 mg PO DAILY 12/20/16 12/20/16 cloNIDine HCL [Catapres] 0.1 mg PO BID 12/20/16 12/20/16 traZODone HCL [Desyrel] 100 mg PO HS 12/20/16 12/20/16 Previous Rx's Medication Instructions Recorded hydrALAZINE HCL [Apresoline] 50 mg PO TID #90 tab 10/11/16 Metoprolol Tartrate [Lopressor] 25 mg PO BID tab 10/25/16 Allergies Allergy/AdvReac Type Severity Reaction Status Date / Time No Known Allergies Allergy Verified 12/20/16 15:34 Review of Systems ROS Statement: Those systems with pertinent positive or pertinent negative responses have been documented in the HPI. ROS Other: All systems not noted in ROS Statement are negative. Past Medical History Past Medical History: COPD, Deep Vein Thrombosis (DVT), Renal Disease Additional Past Medical History / Comment(s): IV drug abuse, CHRONIC NECK/BACK PAIN, SINUS PROBLEMS, bilateral dvt lower extremities october 2016, hep c History of Any Multi-Drug Resistant Organisms: None Reported Past Surgical History: No Surgical Hx Reported Additional Past Surgical History / Comment(s): COLONOSCOPY Past Anesthesia/Blood Transfusion Reactions: No Reported Reaction Past Psychological History: No Psychological Hx Reported Additional Psychological History / Comment(s): Single but lives with his significant other. 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 No experience. No extensive travel. No animal exposures. Positive tobacco use. Denies significant alcohol use. Extensive history of recreational drug use with heroin but it is not active. Smoking Status: Current every day smoker Past Alcohol Use History: None Reported Additional Past Alcohol Use History / Comment(s): STARTED SMOKING AT AGE 17 USED TO SMOKE 1-2 PPD CURRENTLY DOWN TO 3-4 CIG PER DAY. SMOKING CESSATION BOOKLET GIVEN TO PT. Past Drug Use History: Heroin, Marijuana Additional Drug Use History / Comment(s): PT STATED IN PAST USED( MARIJUANA, MESCULINE-NONE NOW). CURRENTLY USES HEROIN .STATED LAST USED HEROIN ON Saturday09-30-16 - Past Family History Father Family Medical History: Myocardial Infarction ([place]) Mother Additional Family Medical History / Comment(s): BRAIN ANEURYSM General Exam - General Exam Comments Initial Comments: Generalized anasarca Limitations: no limitations General appearance: alert, in no apparent distress Head exam: Present: atraumatic, normocephalic, normal inspection Eye exam: Present: normal appearance, PERRL, EOMI. Absent: scleral icterus, conjunctival injection, periorbital swelling ENT exam: Present: normal exam, mucous membranes moist Neck exam: Present: normal inspection. Absent: tenderness, meningismus, lymphadenopathy Respiratory exam: Present: normal lung sounds bilaterally. Absent: respiratory distress, wheezes, rales, rhonchi, stridor Cardiovascular Exam: Present: regular rate, normal rhythm, normal heart sounds. Absent: systolic murmur, diastolic murmur, rubs, gallop, clicks GI/Abdominal exam: Present: soft, normal bowel sounds. Absent: distended, tenderness, guarding, rebound, rigid Extremities exam: Present: normal inspection, full ROM, normal capillary refill. Absent: tenderness, pedal edema, joint swelling, calf tenderness Back exam: Present: normal inspection Neurological exam: Present: alert, oriented X3, CN II-XII intact Psychiatric exam: Present: normal affect, normal mood Skin exam: Present: warm, dry, intact, normal color. Absent: rash Course Vital Signs 12/20/16 12/20/16 14:36 16:50 Temperature 97.7 F Pulse Rate 127 H 109 H Respiratory 20 18 Rate Blood Pressure 143/86 148/94 O2 Sat by Pulse 98 97 Oximetry - Reevaluation(s) Reevaluation #1: 12/20/16 16:55 Patient is symptomatically no different EKG Findings - EKG Comments: EKG Findings:: EKG shows sinus tachycardia rate 107, TX 180, QRS 62, QTC 448 Medical Decision Making - Medical Decision Making 61-year-old ER for evaluation of diffuse fluid overload, nondependent pitting edema. Patient will be admitted for treatment of fluid overload status evaluation by nephrology - Lab Data Result diagrams: 12/20/16 15:39 12/20/16 15:39 Lab Results 12/20/16 12/20/16 12/20/16 Range/Units 15:39 15:39 15:39 WBC 5.6 (3.8-10.6) k/uL RBC 2.83 L (4.30-5.90) m/uL Hgb 8.6 L (13.0-17.5) gm/dL Hct 27.0 L (39.0-53.0) % MCV 95.2 (80.0-100.0) fL MCH 30.4 (25.0-35.0) pg MCHC 31.9 (31.0-37.0) g/dL RDW 13.7 (11.5-15.5) % Plt Count 302 (150-450) k/uL Neutrophils % 50 % Lymphocytes % 26 % Monocytes % 6 % Eosinophils % 15 % Basophils % 1 % Neutrophils # 2.8 (1.3-7.7) k/uL Lymphocytes # 1.5 (1.0-4.8) k/uL Monocytes # 0.3 (0-1.0) k/uL Eosinophils # 0.8 H (0-0.7) k/uL Basophils # 0.0 (0-0.2) k/uL PT 10.7 (9.0-12.0) sec INR 1.1 (<1.1) APTT 22.5 (22.0-30.0) sec Sodium 142 (137-145) mmol/L Potassium 3.8 (3.5-5.1) mmol/L Chloride 99 (98-107) mmol/L Carbon Dioxide 38 H (22-30) mmol/L Anion Gap 5 mmol/L BUN 10 (9-20) mg/dL Creatinine 1.07 (0.66-1.25) mg/dL Est GFR (MDRD) Af Amer >60 (>60 ml/min/1.73 sqM) Est GFR (MDRD) Non-Af >60 (>60 ml/min/1.73 sqM) Glucose 95 (74-99) mg/dL Calcium 9.3 (8.4-10.2) mg/dL Phosphorus 2.9 (2.5-4.5) mg/dL Magnesium 1.4 L (1.6-2.3) mg/dL Total Bilirubin 0.3 (0.2-1.3) mg/dL AST 28 (17-59) U/L ALT 24 (21-72) U/L Alkaline Phosphatase 54 (38-126) U/L Total Creatine Kinase (55-170) U/L CK-MB (CK-2) (0.0-2.4) ng/mL CK-MB (CK-2) Rel Index Troponin I (0.000-0.034) ng/mL Total Protein 7.3 (6.3-8.2) g/dL Albumin 3.4 L (3.5-5.0) g/dL TSH 1.410 (0.465-4.680) mIU/L 12/20/16 Range/Units 15:39 WBC (3.8-10.6) k/uL RBC (4.30-5.90) m/uL Hgb (13.0-17.5) gm/dL Hct (39.0-53.0) % MCV (80.0-100.0) fL MCH (25.0-35.0) pg MCHC (31.0-37.0) g/dL RDW (11.5-15.5) % Plt Count (150-450) k/uL Neutrophils % % Lymphocytes % % Monocytes % % Eosinophils % % Basophils % % Neutrophils # (1.3-7.7) k/uL Lymphocytes # (1.0-4.8) k/uL Monocytes # (0-1.0) k/uL Eosinophils # (0-0.7) k/uL Basophils # (0-0.2) k/uL PT (9.0-12.0) sec INR (<1.1) APTT (22.0-30.0) sec Sodium (137-145) mmol/L Potassium (3.5-5.1) mmol/L Chloride (98-107) mmol/L Carbon Dioxide (22-30) mmol/L Anion Gap mmol/L BUN (9-20) mg/dL Creatinine (0.66-1.25) mg/dL Est GFR (MDRD) Af Amer (>60 ml/min/1.73 sqM) Est GFR (MDRD) Non-Af (>60 ml/min/1.73 sqM) Glucose (74-99) mg/dL Calcium (8.4-10.2) mg/dL Phosphorus (2.5-4.5) mg/dL Magnesium (1.6-2.3) mg/dL Total Bilirubin (0.2-1.3) mg/dL AST (17-59) U/L ALT (21-72) U/L Alkaline Phosphatase (38-126) U/L Total Creatine Kinase 72 (55-170) U/L CK-MB (CK-2) 1.8 (0.0-2.4) ng/mL CK-MB (CK-2) Rel Index 2.5 Troponin I <0.012 (0.000-0.034) ng/mL Total Protein (6.3-8.2) g/dL Albumin (3.5-5.0) g/dL TSH (0.465-4.680) mIU/L - Radiology Data Radiology results: report reviewed (Chest x-ray shows improvement resolutions), image reviewed Disposition Clinical Impression: Anasarca, Tachycardia, Tachycardia Disposition: ADMITTED IP TO THIS [facility] Condition: Good Referrals: Gus Aguilar MD [Primary Care Provider] - 1-2 days
[2016-12-20 15:56] LABS: Basophils % (A) 1 %; CH 30.6; CHCM 32.3; Eosinophils # (A) 0.8 k/uL (0-0.7); Eosinophils % (A) 15 %; HDW 3.17; HGB 8.6 gm/dL (13.0-17.5); Luc # (Auto) 0.13; Luc % (Auto) 2; Lymphocytes # (A) 1.5 k/uL (1.0-4.8); Lymphocytes % (A) 26 %; MCH 30.4 pg (25.0-35.0); MCHC 31.9 g/dL (31.0-37.0); MCV 95.2 fL (80.0-100.0); Mean Platelet Volume 6.7; Monocytes # (A) 0.3 k/uL (0-1.0); Monocytes % (A) 6 %; Neutrophils # (A) 2.8 k/uL (1.3-7.7); Neutrophils % (A) 50 %; RBC 2.83 m/uL (4.30-5.90); RDW 13.7 % (11.5-15.5); WBC 5.6 k/uL (3.8-10.6); WBC (Perox) 5.61
--- NOTE | 2016-12-20 15:58 | XR ---
EXAMINATION TYPE: XR chest 2V DATE OF EXAM: 12/20/2016 3:54 PM COMPARISON: 10/19/2016 TECHNIQUE: PA and lateral views submitted. HISTORY: Chest pain and pressure FINDINGS: The lungs are clear and there is no pneumothorax, pleural effusion, or focal pneumonia. Hyperinflat ion suggests COPD. IMPRESSION: 1. COPD with near complete resolution of right-sided area of consolidation.
[2016-12-20 16:00] LABS: INR 1.1 (<1.1); Partial Thromboplastin Time 22.5 sec (22.0-30.0); Prothrombin Time 10.7 sec (9.0-12.0)
[2016-12-20 16:04] LABS: ALT 24 U/L (21-72); AST 28 U/L (17-59); Alkaline Phosphatase 54 U/L (38-126); Anion Gap 5 mmol/L; Blood Urea Nitrogen 10 mg/dL (9-20); Calcium 9.3 mg/dL (8.4-10.2); Carbon Dioxide 38 mmol/L (22-30); Chloride 99 mmol/L (98-107); Glucose 95 mg/dL (74-99); Magnesium 1.4 mg/dL (1.6-2.3); Non-African American GFR(MDRD) >60 (>60 ml/min/1.73 sqM); Phosphorous 2.9 mg/dL (2.5-4.5); Potassium 3.8 mmol/L (3.5-5.1); Sodium 142 mmol/L (137-145); Total Bilirubin 0.3 mg/dL (0.2-1.3); Total Protein 7.3 g/dL (6.3-8.2)
[2016-12-20 16:14] LABS: Creatine Kinase 72 U/L (55-170)
[2016-12-20 16:25] LABS: Creatine Kinase MB 1.8 ng/mL (0.0-2.4); Troponin I <0.012 ng/mL (0.000-0.034)
[2016-12-20] MEDS ORDERED: FUROSEMIDE 10 MG/ML 4 ML VIAL IV STA (16:53)
[2016-12-20 21:12] LABS: Appearance,Urine Clear (Clear); Bilirubin,Urine Negative (Negative); Glucose,Urine (UA) Negative (Negative); Ketones,Urine Negative (Negative); Leukocyte Esterase,Urine Negative (Negative); Nitrite,Urine Negative (Negative); PH, Urine 7.5 (5.0-8.0); Particle Count 288; Protein,Urine Trace (Negative); RBC,Urine 15 /hpf (0-5); Specific Gravity,Urine 1.003 (1.001-1.035); UA Billing (MACRO vs. MICRO) MICRO; Urobilinogen,Urine <2.0 mg/dL (<2.0)
[2016-12-21] MEDS: FUROSEMIDE 10 MG/ML 4 ML VIAL IV SCH ×2 (06:43→15:26)
[2016-12-21] MEDS: ENOXAPARIN 40 MG/0.4 ML SYRINGE SQ SCH (07:47)
[2016-12-21] MEDS ORDERED: ALBUTEROL NEBULIZED 2.5 MG/3 ML INHALATION PRN (08:43)
[2016-12-21] MEDS ORDERED: ALPRAZolam 0.5 MG TAB PO PRN (08:43)
[2016-12-21] MEDS: MAGNESIUM SULFATE-D5W PMX 1 GM in DEXTROSE/WATER 1 100ML.BAG IVPB SCH ×4 (09:00→13:03)
[2016-12-21] MEDS: METOPROLOL TARTRATE 25 MG TAB PO SCH ×2 (09:00→22:31)
[2016-12-21] MEDS: PANTOPRAZOLE 40 MG TABLET PO SCH (09:00)
[2016-12-21] MEDS: TIOTROPIUM 18 MCG/PUFF INHALER INHALATION SCH (11:29)
[2016-12-21 13:23] VITALS: BMI 19.0
--- NOTE | 2016-12-21 15:28 | HP ---
DATE OF ADMISSION: 12/21/2016 CHIEF COMPLAINT: Shortness of breath and anasarca. HISTORY OF PRESENT ILLNESS: This is another admission for this 61-year-old white male, a chronic alcoholic, with previous history of IVDA. He started to have fluid retention and developed increasing shortness of breath and came back to the emergency room. He denies any fever, chills, chest pain, nausea, vomiting, GI or urinary complaints, etc. REVIEW OF SYSTEMS: Otherwise unremarkable. Past medical history, family history, and personal and social histories are unchanged. He is NOT ALLERGIC TO ANYTHING. MEDICATIONS: 1. Catapres 0.1 twice a day. 2. Hydralazine 25 twice a day. 3. Xanax 1.5 mg at bedtime. 4. Breo Ellipta 100/25 one puff once a day. 5. Ventolin HFA inhaler. 6. Spiriva inhaler. Remainder of his history is unremarkable and unchanged from his last admission. PHYSICAL EXAMINATION: VITAL SIGNS: Blood pressure 174/90 with a pulse of 96, respiration 40, and he is afebrile. In general he appeared to be dyspneic and short of breath and chronically ill-appearing. Head, ears, eyes, nose, mouth and throat demonstrated significant facial edema. Neck veins were distended. The thyroid was enlarged. Chest demonstrated poor breath sounds throughout with scattered rales and rhonchi. Cardiac exam demonstrates atrial fibrillation with rapid ventricular response. The abdomen is slightly protuberant, soft and nontender. Extremities demonstrated 2 or 3+ edema, particularly in the legs. Neurologically he is intact. He is admitted to the hospital with diagnoses: 1. Exacerbation of congestive heart failure. 2. Cardiomyopathy. 3. History of chronic alcoholism and intravenous drug abuse. PLAN: 1. Bed rest. 2. IV fluids. 3. Nasal oxygen. 4. Diuresis.
--- NOTE | 2016-12-21 15:30 | PN ---
DATE OF SERVICE: 12/21/2016 CHIEF COMPLAINT: Congestive heart failure and anasarca. HISTORY OF PRESENT ILLNESS: This gentleman is doing a little better and breathing is slightly eased. PHYSICAL EXAMINATION: His chest is actually quite clear. There are very few rales right now. Cardiac exam demonstrated atrial fibrillation. His abdomen is soft. IMPRESSION: 1. Anasarca. 2. Atrial fibrillation. 3. Probable cardiomyopathy. 4. Previous intravenous drug abuse. 5. Venous insufficiency in the lower extremities. PLAN: Continue diuresis.
--- NOTE | 2016-12-21 19:44 | CONS ---
DATE OF CONSULTATION: 12/21/2016 HISTORY OF PRESENT ILLNESS: Patient is a 61-year-old -Irish male with a previous history of acute kidney injury. He has a history of polysubstance abuse and was admitted to the hospital with increased lower extremity edema. He did have some shortness of breath. Patient denied any chest pains. No nausea, vomiting, abdominal pain or diarrhea. PAST MEDICAL HISTORY: 1. History of DVT. 2. COPD. 3. Acute kidney injury; some element of chronic kidney disease with creatinine at about 1 to 1.2 mg/dL for baseline. Patient has trace proteinuria. He is currently maintained on IV Lasix and he states he is feeling slightly better. He has had good urine output. He has been in negative balance of about 1500 mL. 4. CKD, stage II to III. 5. Hypertension. 6. History of acute kidney injury. PAST SURGICAL HISTORY: Colonoscopy. SOCIAL HISTORY: Positive for smoking. There is history of drug abuse with marijuana and heroin. Medications prior to admission included: 1. Xanax. 2. Coumadin. 3. Aldactazide. 4. Motrin. 5. Desyrel. 6. Clonidine. 7. Hydralazine. 8. Lopressor. ALLERGIES: NONE. REVIEW OF SYSTEMS: As per HPI. Other systems negative. On examination, patient is comfortable, awake, not in any acute distress. Blood pressure is 148/85, heart rate 93 per minute. He is afebrile. EXAMINATION OF THE HEART: S1 and S2. EXAMINATION OF THE LUNGS: Bilateral breath sounds are heard. ABDOMEN: Soft, nontender. Examination of lower extremities shows edema 2+ bilaterally. [employer] exam is grossly intact. Patient is moving all 4 extremities. Labs show sodium 142, potassium 3.8; hemoglobin 8.6; serum creatinine 1.07. Phosphorus 2.9. Magnesium 1.4. ASSESSMENT: 1. Volume overload, currently maintained on IV push Lasix. This may have been exacerbated by Motrin, which I see on his medication list. 2. History of polysubstance abuse. 3. Prior history of acute kidney injury on admission in October of this year. 4. Chronic obstructive pulmonary disease. 5. History of bilateral lower extremity deep venous thromboses. 6. History of hepatitis C. 7. Severe pulmonary hypertension. PLAN: Continue current dose of Lasix. Repeat labs in a.m. Maintain patient off of non-steroidal anti-inflammatory agents.
[2016-12-22] MEDS: FUROSEMIDE 10 MG/ML 4 ML VIAL IV SCH ×2 (06:19→19:01)
[2016-12-22] MEDS: TIOTROPIUM 18 MCG/PUFF INHALER INHALATION SCH (07:42)
[2016-12-22] MEDS: PANTOPRAZOLE 40 MG TABLET PO SCH (07:59)
[2016-12-22] MEDS: ENOXAPARIN 40 MG/0.4 ML SYRINGE SQ SCH (07:59)
[2016-12-22] MEDS: METOPROLOL TARTRATE 25 MG TAB PO SCH (07:59)
[2016-12-22] MEDS ORDERED: TIOTROPIUM 18 MCG/PUFF INHALER INHALATION SCH (08:00)
[2016-12-22 09:42] LABS: ALT 21 U/L (21-72); AST 24 U/L (17-59); Alkaline Phosphatase 44 U/L (38-126); Blood Urea Nitrogen 11 mg/dL (9-20); Calcium 9.2 mg/dL (8.4-10.2); Chloride 97 mmol/L (98-107); Glucose 125 mg/dL (74-99); Non-African American GFR(MDRD) >60 (>60 ml/min/1.73 sqM); Potassium 3.4 mmol/L (3.5-5.1); Sodium 142 mmol/L (137-145); Total Bilirubin 0.4 mg/dL (0.2-1.3); Total Protein 6.3 g/dL (6.3-8.2)
[2016-12-22 09:48] LABS: Anion Gap 6 mmol/L
[2016-12-22 09:59] LABS: Carbon Dioxide 39 mmol/L (22-30)
[2016-12-22] MEDS ORDERED: POTASSIUM CHLORIDE ER 20 MEQ TAB.ER PO ONE (21:00)
[2016-12-22] MEDS ORDERED: METOPROLOL TARTRATE 25 MG TAB ONE (21:00)
[2016-12-22] MEDS ORDERED: SPIRONOLACTONE-HCTZ 25-25MG 1 EACH TAB ONE (21:00)
[2016-12-23] MEDS: TIOTROPIUM 18 MCG/PUFF INHALER INHALATION SCH (07:09)
[2016-12-23] MEDS: METOPROLOL TARTRATE 25 MG TAB PO SCH ×3 (07:46→22:59)
[2016-12-23] MEDS: SPIRONOLACTONE-HCTZ 25-25MG 1 EACH TAB PO SCH ×3 (07:46→22:59)
[2016-12-23] MEDS: POTASSIUM CHLORIDE ER 20 MEQ TAB.ER PO SCH ×3 (08:20→22:59)
[2016-12-23] MEDS: FUROSEMIDE 40 MG TAB PO SCH ×2 (08:20→16:47)
[2016-12-23] MEDS: ENOXAPARIN 40 MG/0.4 ML SYRINGE SQ SCH (08:20)
[2016-12-23] MEDS: PANTOPRAZOLE 40 MG TABLET PO SCH (08:20)
[2016-12-23 12:25] LABS: ALT 23 U/L (21-72); AST 22 U/L (17-59); Alkaline Phosphatase 43 U/L (38-126); Anion Gap 5 mmol/L; Blood Urea Nitrogen 11 mg/dL (9-20); Calcium 9.4 mg/dL (8.4-10.2); Carbon Dioxide 39 mmol/L (22-30); Chloride 98 mmol/L (98-107); Glucose 96 mg/dL (74-99); Non-African American GFR(MDRD) >60 (>60 ml/min/1.73 sqM); Sodium 142 mmol/L (137-145); Total Bilirubin 0.3 mg/dL (0.2-1.3); Total Protein 6.2 g/dL (6.3-8.2)
--- NOTE | 2016-12-23 12:51 | PN ---
DATE OF SERVICE: 12/22/2016 CHIEF COMPLAINT: Anasarca and congestive heart failure. HISTORY OF PRESENT ILLNESS: This gentleman is doing much better. He is breathing much better today. PHYSICAL EXAMINATION: He still has some scattered rales and rhonchi. CARDIAC: Normal. ABDOMEN: Soft, nontender. IMPRESSION: 1. Congestive heart failure. 2. Chronic obstructive pulmonary disease. 3. History of intravenous drug abuse. PLAN: Continue with diuresis.
--- NOTE | 2016-12-23 18:13 | PN ---
Patient is seen for follow-up for chronic kidney disease and volume overload. He was admitted with increased edema and some shortness of breath. He was maintained on IV Lasix, which was discontinued and he is switched to p.o. Lasix. Renal function has been stable with creatinine at 1 mg/dL. Overall the patient states he is feeling better. On examination, blood pressure 155/96, heart rate 88 per minute. He is afebrile. Examination of the heart S1, S2. Examination of the lungs: Bilateral breath sounds are heard. Abdomen is soft, nontender. Examination of the lower extremities shows decreased edema. [employer] exam is grossly intact. Labs show sodium 142, potassium 4.0, chloride 98, BUN 11, serum creatinine 1.0. Hemoglobin was 8.6 on 12/20. ASSESSMENT: 1. Chronic kidney disease Stage 2 to Stage 3, currently stable. Etiology is nephrosclerosis. Patient does have trace protein. He follows up as outpatient. 2. Volume overload, currently improved. Lasix has been switched to p.o. 3. History of polysubstance abuse. 4. Chronic obstructive pulmonary disease. PLAN: Continue with oral Lasix for now. Possible discharge tomorrow. Follow up as outpatient.
[2016-12-24 07:35] VITALS: BP 156/77; PULSE 83; RESP 16; TEMP 96.9
[2016-12-24] MEDS: TIOTROPIUM 18 MCG/PUFF INHALER INHALATION SCH (08:39)
[2016-12-24] MEDS: METOPROLOL TARTRATE 25 MG TAB PO SCH (09:16)
[2016-12-24] MEDS: FUROSEMIDE 40 MG TAB PO SCH (09:16)
[2016-12-24] MEDS: ENOXAPARIN 40 MG/0.4 ML SYRINGE SQ SCH (09:16)
[2016-12-24] MEDS: PANTOPRAZOLE 40 MG TABLET PO SCH (09:16)
[2016-12-24] MEDS: POTASSIUM CHLORIDE ER 20 MEQ TAB.ER PO SCH (09:16)
[2016-12-24] MEDS: SPIRONOLACTONE-HCTZ 25-25MG 1 EACH TAB PO SCH (09:16)
[2016-12-24 10:38] LABS: ALT 18 U/L (21-72); AST 27 U/L (17-59); Alkaline Phosphatase 51 U/L (38-126); Anion Gap 6 mmol/L; Blood Urea Nitrogen 9 mg/dL (9-20); Calcium 9.8 mg/dL (8.4-10.2); Carbon Dioxide 37 mmol/L (22-30); Chloride 96 mmol/L (98-107); Glucose 131 mg/dL (74-99); Non-African American GFR(MDRD) >60 (>60 ml/min/1.73 sqM); Sodium 139 mmol/L (137-145); Total Bilirubin 0.5 mg/dL (0.2-1.3); Total Protein 7.5 g/dL (6.3-8.2)
--- NOTE | 2016-12-24 10:42 | CDI ---
In responding to this query, please exercise your independent professional judgment. The [facility] Coding Staff and Clinical Documentation Specialists appreciate your assistance in clarifying documentation, maintaining compliance with coding guidelines, accurately documenting patients condition and capturing severity of illness. The fact that a question is asked does not imply that any particular answer is desired or expected. Communication forms are a method of clarifying documentation and are not made part of the Legal Health Record. Thank you in advance for your clarification. Last Revision, October 2016 Layla Cummins [address] [place] [address] Documentation Clarification Form Date: 12/24/2016 9:57:00 AM From: Aramis Ramirez, RN, BSN, CDI Admit Date: 12/21/2016 9:39:00 AM Patient Name: Vj Hull Visit Number: [id number] Dr. Gus Aguilar: CHF is documented in the H&P and progress notes. History/Risk Factors: 61 yo male with a history of COPD, CKD, HTN, hx of IVDA and probable cardiomyopathy presents with c/o edema in his face and legs. Clinical Indicators: VS/Pulse OX: 143/86, 127, 20, 97.7, 98% 2L NC Chest X Ray: COPD with near complete resolution of right-sided area of consolidation Treatment: Lasix 40mg IVP x1, Lasix 40mg IVP q12, Lasix 40mgPO BID, Aldactazide 25-25mg PO BID, Lopressor 25mg PO BID Consults: nephrology In your professional opinion, can you please clarify the acuity and type of CHF if known? Systolic Heart Failure: Acute Chronic Acute on Chronic Diastolic Heart Failure: Acute Chronic Acute on Chronic Systolic & Diastolic Heart Failure: Acute Chronic Acute on Chronic Unable to determine Other, please specify Please document in your progress notes and discharge summary in order to capture severity of illness and risk of mortality. Include clinical findings that support your diagnosis. FYI: Press F11 to launch patient chart. Place X here if this finding has no clinical significance, is not applicable or if you are not able to provide any additional documentation. ADRIÁN
--- NOTE | 2016-12-24 10:55 | CDI ---
In responding to this query, please exercise your independent professional judgment. The [facility] Coding Staff and Clinical Documentation Specialists appreciate your assistance in clarifying documentation, maintaining compliance with coding guidelines, accurately documenting patients condition and capturing severity of illness. The fact that a question is asked does not imply that any particular answer is desired or expected. Communication forms are a method of clarifying documentation and are not made part of the Legal Health Record. Thank you in advance for your clarification. Last Revision, June 2015 Layla Cummins [address] [address] Documentation Clarification Form Date: 12/24/2016 10:43:00 AM From: Aramis Ramirez, RN, BSN, CDI Admit Date: 12/21/2016 9:39:00 AM Patient Name: Vj Hull Visit Number: [id number] Dr. Gus Aguilar: "Atrial fibrillation" is documented in your progress notes. History/Risk Factors: 61 yo male with a history of HTN, COPD, DVT, chronic renal failure and IVDA presents with c/o swelling in his face and legs, as well as weakness. Clinical Indicators: EKG/telemetry: ST @107 bpm Treatment: Pt on Coumadin at home Per your documentation in progress note dated 12/21, "cardiac exam demonstrated atrial fibrillation" In your professional opinion, can you please clarify the type of atrial fibrillation, if known? Chronic/Permanent Paroxysmal Persistent Other, please specify Unable to determine Please document in your progress notes and discharge summary in order to capture severity of illness and risk of mortality. Include clinical findings that support your diagnosis. FYI: Press F11 to launch patient chart Place X here if this finding has no clinical significance, is not applicable or if you are not able to provide any additional documentation. ADRIÁN
--- NOTE | 2016-12-24 12:33 | P.DS ---
Providers Date of admission: 12/21/16 09:39 Expected date of discharge: 12/24/16 Attending physician: Gus Aguilar Consults: Dr. Baez Primary care physician: Gus Aguilar Hospital Course: 61-year-old was admitted on the day of admission to the emergency room for chief complaint of developing swelling to the bilateral lower extremities. Episodes of increased shortness of breath Patient has history of polysubstance abuse. Patient has known chronic kidney disease stage II to 3. Patient has history of IV heroin use. Was just discharged in October 2016 that time the patient was transferred to a subacute rehab.. Patient returns to the emergency room with the above-mentioned symptoms. Patient was followed by Dr. Brian nephrology. Patient was started on IV diuretics was a noted improvement in patient's clinical status patient was felt to be appropriate to be discharged home Impression discharge diagnoses Present on admission increased swelling to the bilateral lower extremities with shortness of breath likely due to an acute exacerbation of diastolic heart failure with fluid overload Paroxysmal atrial fibrillation on admission sinus rhythm Echocardiogram September 2016 left ventricular systolic function normal with an EF between 55 and 60% with severe pulmonary hypertension Acute on chronic diastolic congestive heart failure with severe pulmonary hypertension as evident on echocardiogram September 2016 Present on admission acute exacerbation decompensated diastolic congestive heart failure with fluid overload History of IV heroin abuse Chronic kidney disease stage II to 3 likely due to nephrosclerosis with a trace of protein in the urine Severe pulmonary hypertension with RVSP of 61 Electrolyte abnormality hypo-magnesium present on admission History of IV heroin use last reported 09/30/2016 Anemia chronic illness Dopplers to the bilateral lower extremities positive for DVT per venous Dopplers 10/11/2016 on anticoagulation Coumadin The above dictated assessment and findings were discussed with dr aguilar Impression and the plan of care have been dictated as directed. Neena Clark nurse practitioner acting as a scribe for dr aguilar Patient Condition at Discharge: Good Plan - Discharge Summary New Discharge Prescriptions: Furosemide [Lasix] 40 mg PO BID@0900,1600 #60 tab Discharge Medication List Albuterol Inhaler [Ventolin Hfa Inhaler] 2 puff INHALATION RT-Q4H PRN 10/03/16 [ History] Ibuprofen [Motrin] 800 mg PO QID 10/03/16 [History] Tiotropium 18 Mcg/Puff [Spiriva] 1 cap INHALATION RT-DAILY 10/03/16 [History] hydrALAZINE HCL [Apresoline] 50 mg PO TID #90 tab 10/11/16 [Rx] Metoprolol Tartrate [Lopressor] 25 mg PO BID tab 10/25/16 [Rx] ALPRAZolam [Xanax] 0.5 mg PO HS PRN 12/20/16 [History] Omeprazole 20 mg PO DAILY 12/20/16 [History] Spironolactone-Hctz 25-25Mg [Aldactazide 25-25 MG] 1 tab PO DAILY 12/20/16 [ History] Warfarin [Coumadin] 5 mg PO DAILY 12/20/16 [History] cloNIDine HCL [Catapres] 0.1 mg PO BID 12/20/16 [History] traZODone HCL [Desyrel] 100 mg PO HS 12/20/16 [History] Furosemide [Lasix] 40 mg PO BID@0900,1600 #60 tab 12/24/16 [Rx] Follow up Appointment(s)/Referral(s): Gus Aguilar MD [Primary Care Provider] - 1-2 days [facility] Visiting Nurse, [NON-STAFF] - Ambulatory/Diagnostic Orders: Prothrombin Time INR [LAB.AMB] Time Frame: 12/26/16, Location: Determined By Patient Activity/Diet/Wound Care/Special Instructions: Home care visiting nurse associate to draw for pro time with INR on December [address] Aguilar office Discharge Disposition: HOME WITH HOME HEALTH SERVICES
--- NOTE | 2016-12-24 22:38 | PN ---
DATE OF SERVICE: 12/23/2016 CHIEF COMPLAINT: Congestive heart failure. HISTORY OF PRESENT ILLNESS: This gentleman is doing well and he is diuresing. Shortness of breath has greatly improved. Anasarca nearly gone. PHYSICAL EXAMINATION: Chest is quite clear now. CARDIAC: Normal. ABDOMEN: Soft and nontender. There is less edema. IMPRESSION: 1. Congestive heart failure. 2. Chronic obstructive pulmonary disease. 3. Status post intravenous drug abuse. PLAN: Continue diuresis and probably home tomorrow.
--- NOTE | 2016-12-25 08:19 | PN ---
DATE OF SERVICE: 12/24/2016 CHIEF COMPLAINT: Congestive heart failure. HISTORY OF PRESENT ILLNESS: This gentleman is doing well and he is well diuresed. He is not short of breath. He has a very little residual edema. PHYSICAL EXAMINATION: CHEST: Clear. CARDIAC: Exam is normal. ABDOMEN: Soft, nontender. EXTREMITIES: Normal. IMPRESSION: 1. Congestive heart failure. 2. Anasarca. 3. Status post intravenous drug abuse. PLAN: Home today and this will be arranged by the nurse practitioner.
--- NOTE | 2016-12-26 05:39 | PN ---
DATE OF SERVICE: 12/24/2016 The patient is diuresed well and is less short of breath and he has no further anasarca. He will probably be able to go home later today and this will be arranged by the nurse practitioner and will follow him up in the office in a day or two.
== END 2016-12-24 14:05 | disposition home health service (06) | DRG 291 ==
LOC: EC 14:28 → 3OBS 16:53 → 4MS4W 20:50 → OBSVTOIN 12-21 09:39
PROVIDERS: ADMIT Family Medicine; ATTEND Family Medicine
DX: I13.0 Hypertensive heart and chronic kidney disease with heart failure and stage 1 through stage 4 chronic kidney disease, or unspecified chronic kidney disease (principal); I50.33 Acute on chronic diastolic (congestive) heart failure; I27.2 Other secondary pulmonary hypertension; I42.9 Cardiomyopathy, unspecified; E83.42 Hypomagnesemia; D63.8 Anemia in other chronic diseases classified elsewhere; F17.200 Nicotine dependence, unspecified, uncomplicated; I48.0 Paroxysmal atrial fibrillation; I87.2 Venous insufficiency (chronic) (peripheral); J44.9 Chronic obstructive pulmonary disease, unspecified; N18.3 Chronic kidney disease, stage 3 (moderate); Z79.01 Long term (current) use of anticoagulants; Z79.899 Other long term (current) drug therapy; Z82.49 Family history of ischemic heart disease and other diseases of the circulatory system; Z86.718 Personal history of other venous thrombosis and embolism
CPT/HCPCS: 36415; 71020; 80053; 81001; 82550; 82553; 83735; 84100; 84443; 84484; 85025; 85610; 85730; 93005; 94640; 96365; 96366; 96372; 96374; 96375; 96376; 99285

== ENCOUNTER → 2016-12-28 | Outpatient (CLI) | payer OTHER ==
[2016-12-28 11:30] LABS: Basophils # (A) 0.1 k/uL (0-0.2); Basophils % (A) 1 %; CH 30.3; CHCM 31.8; Eosinophils # (A) 0.5 k/uL (0-0.7); Eosinophils % (A) 7 %; HCT 29.5 % (39.0-53.0); HDW 2.69; HGB 9.5 gm/dL (13.0-17.5); Luc % (Auto) 3; Lymphocytes # (A) 1.7 k/uL (1.0-4.8); Lymphocytes % (A) 22 %; MCH 30.9 pg (25.0-35.0); MCHC 32.3 g/dL (31.0-37.0); MCV 95.7 fL (80.0-100.0); Mean Platelet Volume 6.7; Monocytes # (A) 0.4 k/uL (0-1.0); Monocytes % (A) 5 %; Neutrophils # (A) 4.8 k/uL (1.3-7.7); Neutrophils % (A) 63 %; RBC 3.09 m/uL (4.30-5.90); WBC 7.7 k/uL (3.8-10.6); WBC (Perox) 7.97
[2016-12-28 12:00] LABS: ALT 27 U/L (21-72); AST 30 U/L (17-59); Alkaline Phosphatase 50 U/L (38-126); Anion Gap 13 mmol/L; Blood Urea Nitrogen 38 mg/dL (9-20); Calcium 9.8 mg/dL (8.4-10.2); Carbon Dioxide 28 mmol/L (22-30); Chloride 92 mmol/L (98-107); Glucose 241 mg/dL (74-99); Non-African American GFR(MDRD) 57 (>60 ml/min/1.73 sqM); Sodium 133 mmol/L (137-145); Total Bilirubin 0.6 mg/dL (0.2-1.3); Total Protein 7.9 g/dL (6.3-8.2)
== END | disposition home or self-care (01) ==
LOC: LABWHC1 10:43
PROVIDERS: ATTEND Family Medicine
DX: R53.83 Other fatigue (principal)
CPT/HCPCS: 36415; 80053; 85025

== ENCOUNTER → 2017-02-04 | Outpatient (CLI) | payer OTHER ==
[2017-02-04 13:35] LABS: ALT 33 U/L (21-72); AST 30 U/L (17-59); Alkaline Phosphatase 54 U/L (38-126); Anion Gap 14 mmol/L; Basophils % (A) 1 %; Blood Urea Nitrogen 20 mg/dL (9-20); CH 30.2; CHCM 31.8; Calcium 10.7 mg/dL (8.4-10.2); Carbon Dioxide 29 mmol/L (22-30); Chloride 98 mmol/L (98-107); Eosinophils # (A) 0.3 k/uL (0-0.7); Eosinophils % (A) 4 %; Glucose 142 mg/dL (74-99); HCT 38.9 % (39.0-53.0); HDW 2.86; Hypochromasia Slight; Iron 58 ug/dL (49-181); Luc # (Auto) 0.18; Luc % (Auto) 3; Lymphocytes # (A) 2.2 k/uL (1.0-4.8); Lymphocytes % (A) 34 %; MCH 31.8 pg (25.0-35.0); MCHC 33.3 g/dL (31.0-37.0); MCV 95.6 fL (80.0-100.0); Magnesium 1.7 mg/dL (1.6-2.3); Mean Platelet Volume 6.6; Monocytes # (A) 0.3 k/uL (0-1.0); Monocytes % (A) 4 %; Neutrophils # (A) 3.6 k/uL (1.3-7.7); Neutrophils % (A) 55 %; Non-African American GFR(MDRD) 57 (>60 ml/min/1.73 sqM); Phosphorous 4.1 mg/dL (2.5-4.5); Potassium 4.9 mmol/L (3.5-5.1); RBC 4.07 m/uL (4.30-5.90); RDW 13.8 % (11.5-15.5); Sodium 141 mmol/L (137-145); Total Bilirubin 0.5 mg/dL (0.2-1.3); Total Protein 8.6 g/dL (6.3-8.2); Uric Acid 6.6 mg/dL (3.5-8.5); WBC 6.6 k/uL (3.8-10.6); WBC (Perox) 7.01
[2017-02-04 13:44] LABS: % Iron Saturation 17.8 % (20-50); Total Iron Binding Capacity 326 ug/dL (261-462)
[2017-02-04 14:37] LABS: Creatinine,Urine Random 280.7 mg/dL
== END | disposition home or self-care (01) ==
LOC: LABWHC1 12:39
PROVIDERS: ATTEND Nurse Practitioner Family
DX: D64.9 Anemia, unspecified (principal); N17.9 Acute kidney failure, unspecified; E83.39 Other disorders of phosphorus metabolism; E21.3 Hyperparathyroidism, unspecified; E55.9 Vitamin D deficiency, unspecified; M10.9 Gout, unspecified; R80.9 Proteinuria, unspecified; N18.9 Chronic kidney disease, unspecified
CPT/HCPCS: 36415; 80053; 82306; 82570; 82728; 83540; 83550; 83735; 83970; 84100; 84156; 84550; 85025

== ENCOUNTER → 2017-02-06 | Outpatient (CLI) | payer OTHER ==
[2017-02-06 14:48] LABS: Appearance,Urine Clear (Clear); Bilirubin,Urine Negative (Negative); Glucose,Urine (UA) Negative (Negative); Ketones,Urine Negative (Negative); Leukocyte Esterase,Urine Negative (Negative); Mucus,Urine Rare /hpf; Nitrite,Urine Negative (Negative); Particle Count 2225; Protein,Urine 1+ (Negative); RBC,Urine 21 /hpf (0-5); Specific Gravity,Urine 1.006 (1.001-1.035); UA Billing (MACRO vs. MICRO) MICRO; Urobilinogen,Urine <2.0 mg/dL (<2.0); WBC,Urine 2 /hpf (0-5)
[2017-02-06 15:03] LABS: Creatinine,Urine Random 87.9 mg/dL
[2017-02-06 15:18] LABS: ALT 22 U/L (21-72); AST 33 U/L (17-59); Alkaline Phosphatase 47 U/L (38-126); Anion Gap 13 mmol/L; Blood Urea Nitrogen 17 mg/dL (9-20); Calcium 10.2 mg/dL (8.4-10.2); Carbon Dioxide 27 mmol/L (22-30); Chloride 97 mmol/L (98-107); Glucose 110 mg/dL (74-99); Non-African American GFR(MDRD) >60 (>60 ml/min/1.73 sqM); Potassium 4.6 mmol/L (3.5-5.1); Sodium 137 mmol/L (137-145); Total Bilirubin 0.7 mg/dL (0.2-1.3); Total Protein 8.2 g/dL (6.3-8.2)
[2017-02-06 15:48] LABS: Hepatitis B Surface Ag Index 0.06
[2017-02-06 15:54] LABS: Hepatitis B Core IgM Index 0.18
[2017-02-06 16:06] LABS: Hepatitis C Virus IgG Ab Reactive (Negative)
[2017-02-07 10:10] LABS: Free Lambda Lt Chain Qt, Urine 0.481 mg/dL (0.020-0.670)
[2017-02-07 11:53] LABS: Free Kappa Lt Chain Qnt, Urine 2.79 mg/dL (0.140-2.420)
[2017-02-08 04:34] LABS: Complement Total (CH50) 72 U/mL (42 - 95)
== END | disposition home or self-care (01) ==
LOC: LABWHC1 13:08
PROVIDERS: ATTEND Nurse Practitioner Family
DX: R80.9 Proteinuria, unspecified (principal); N17.9 Acute kidney failure, unspecified
CPT/HCPCS: 36415; 80053; 80074; 81001; 82570; 83516; 83883; 84156; 84165; 86160; 86162; 86225; 86335

== ENCOUNTER → 2017-03-11 | Outpatient (CLI) | payer OTHER | END | disposition home or self-care (01) | LOC: LABWHC1 13:38 | PROVIDERS: ATTEND Physician Assistant | DX: R97.20 Elevated prostate specific antigen [PSA] (principal) | CPT/HCPCS: 36415; 84153 ==

== ENCOUNTER → 2017-12-26 | Outpatient (CLI) | payer OTHER ==
--- NOTE | 2017-12-26 10:29 | XR ---
EXAMINATION TYPE: XR chest 2V DATE OF EXAM: 12/26/2017 COMPARISON: 12/20/2016 TECHNIQUE: PA and lateral views submitted. HISTORY: Chest pain FINDINGS: The lungs are clear and there is no pneumothorax, pleural effusion, or focal pneumonia. Hyperinflat ion suggests COPD. No evidence of granuloma. No pleural calcification. There is mild prominence of th e soft tissues along the left perihilar line. IMPRESSION: 1. No acute process. No diagnostic evidence of granulomatous disease. There is a left perihilar conve xity for which repeat CT scan of the chest is recommended
== END | disposition home or self-care (01) ==
LOC: RADXRMAIN 10:11
PROVIDERS: ATTEND Family Medicine
DX: Z11.1 Encounter for screening for respiratory tuberculosis (principal); R91.8 Other nonspecific abnormal finding of lung field
CPT/HCPCS: 71046

== ENCOUNTER → 2019-06-09 | Outpatient (CLI) | payer OTHER ==
[2019-06-09 13:39] LABS: Basophils # (A) 0.1 k/uL (0-0.2); Basophils % (A) 1 %; Eosinophils # (A) 0.2 k/uL (0-0.7); Eosinophils % (A) 4 %; HCT 48.8 % (39.0-53.0); HGB 15.4 gm/dL (13.0-17.5); Hypochromasia Slight; Lymphocytes # (A) 1.4 k/uL (1.0-4.8); Lymphocytes % (A) 24 %; MCH 34.7 pg (25.0-35.0); MCHC 31.6 g/dL (31.0-37.0); Macrocytosis Marked; Mean Platelet Volume 6.2; Monocytes # (A) 0.5 k/uL (0-1.0); Monocytes % (A) 9 %; Neutrophils # (A) 3.4 k/uL (1.3-7.7); Neutrophils % (A) 58 %; Platelet Count 214 k/uL (150-450); RBC 4.44 m/uL (4.30-5.90); RDW 12.6 % (11.5-15.5); WBC 5.9 k/uL (3.8-10.6)
[2019-06-09 19:56] LABS: African American GFR (CKD) 105.7 (60.0-200.0); Albumin 4.5 g/dL (3.80-4.90); Albumin/Globulin Ratio 1.67 (1.60-3.17); Anion Gap 7.9 mmol/L (4.00-12.00); BUN/Creat Ratio 16.67 Ratio (12.00-20.00); Carbon Dioxide 30.1 mmol/L (21.6-31.8); Chol/HDL Ratio 1.82; Globulin 2.7 g/dL (1.6-3.3); Potassium 5.1 mmol/L (3.5-5.5); Total Bilirubin 0.5 mg/dL (0.3-1.2); Total Protein 7.2 g/dL (6.2-8.2)
[2019-06-09 20:03] LABS: T4, Free (Free Thyroxine) 1.2 ng/dL (0.80-1.80)
== END | disposition home or self-care (01) ==
LOC: LABWHC1 12:19
PROVIDERS: ATTEND Family Medicine
DX: Z00.00 Encounter for general adult medical examination without abnormal findings (principal); E55.9 Vitamin D deficiency, unspecified; E78.5 Hyperlipidemia, unspecified; R53.83 Other fatigue; Z13.220 Encounter for screening for lipoid disorders
CPT/HCPCS: 36415; 80053; 80061; 82306; 84439; 84443; 85025

== ENCOUNTER 2019-06-10 05:42 | Emergency (ER) | payer OTHER ==
[2019-06-10] MEDS ORDERED: methylPREDNISolone SOD SUCCI 125 MG/2 ML VIAL IV STA (05:59)
[2019-06-10 06:03] VITALS: TEMP 98.1
--- NOTE | 2019-06-10 06:24 | ED ---
SOB HPI - General Source: patient, EMS Mode of arrival: EMS Limitations: no limitations <Vandana Forman - Last Filed: 06/10/19 06:24> <Shweta Pedroza - Last Filed: 06/10/19 08:15> - General Chief Complaint: Shortness of Breath Stated Complaint: LAWANDA Time Seen by Provider: 06/10/19 05:57 - History of Present Illness Initial Comments: 64-year-old male history of COPD current every day smoker and previous IV drug user last usage of 17 presents emergency department for evaluation of shortness of breath since around 5:00 this morning. Patient states that when he woke up around 5:00 he states it was difficult to take a deep breath he states everything felt tight and like he could expand his lungs. Patient states he has been spitting up sputum but this is normal for him. Patient denies any fever or cough. Patient denies any chest pain denies any arm or jaw pain back pain shoulder pain. Patient denies any nausea or epigastric abdominal pain. Patient denies any other complaints. He states he did one breathing treatment at home prior to arrival as well as one in the ambulance. Patient states that he is feeling better now and would like to go home. Refuses IV access. States we can draw blood. (Shweta Pedroza) - Related Data Home Medications Medication Instructions Recorded Confirmed Albuterol Inhaler [Ventolin Hfa 2 puff INHALATION RT-Q4H PRN 10/03/16 12/20/16 Inhaler] Tiotropium 18 Mcg/Puff [Spiriva] 1 cap INHALATION RT-DAILY 10/03/16 12/20/16 Spironolactone-Hctz 25-25Mg 1 tab PO DAILY 12/20/16 12/20/16 [Aldactazide 25-25 MG] cloNIDine HCL [Catapres] 0.1 mg PO BID 12/20/16 12/20/16 Furosemide [Lasix] 40 mg PO BID@0900,1600 PRN 06/10/19 Previous Rx's Medication Instructions Recorded hydrALAZINE HCL [Apresoline] 50 mg PO TID #90 tab 10/11/16 Allergies Allergy/AdvReac Type Severity Reaction Status Date / Time No Known Allergies Allergy Verified 06/10/19 07:36 Review of Systems ROS Other: All systems not noted in ROS Statement are negative. <Vandana Forman Isabell - Last Filed: 06/10/19 06:24> ROS Other: All systems not noted in ROS Statement are negative. <Shweta Pedroza - Last Filed: 06/10/19 08:15> ROS Statement: Those systems with pertinent positive or pertinent negative responses have been documented in the HPI. Past Medical History Past Medical History: COPD, Deep Vein Thrombosis (DVT), Renal Disease, Syncope Additional Past Medical History / Comment(s): IV drug abuse(HEROIN) STATED NONE SINCE SEP 2016 ADMIT-, CHRONIC NECK/BACK PAIN, SINUS PROBLEMS, bilateral dvt lower extremities october 2016, HOME 02 2 LITERS N/C, EMPHYSEMA, AFIB, CE LLULITIS/RT THIGH ABCESS IN PAST.DENIES ANY HEP C. History of Any Multi-Drug Resistant Organisms: None Reported Past Surgical History: No Surgical Hx Reported Additional Past Surgical History / Comment(s): COLONOSCOPY, PICC LINE SINCE REMOVED. Past Anesthesia/Blood Transfusion Reactions: No Reported Reaction Past Psychological History: No Psychological Hx Reported Smoking Status: Current some day smoker - Past Family History Father Family Medical History: Myocardial Infarction ([place]) Mother Additional Family Medical History / Comment(s): BRAIN ANEURYSM <Aida Formanviki Whyte - Last Filed: 06/10/19 06:24> General Exam Limitations: no limitations <Vandana Forman Isabell - Last Filed: 06/10/19 06:24> <YovanyShweta L - Last Filed: 06/10/19 08:15> - General Exam Comments Initial Comments: General: The patient is awake and alert, in no distress, and does not appear acutely ill. Eye: +3 mm pupils are equal, round and reactive to light, extra-ocular movements are intact. No nystagmus. There is normal conjunctiva bilaterally. No signs of icterus. Ears, nose, mouth and throat: There are moist mucous membranes and no oral lesions. Neck: The neck is supple, there is no tenderness or JVD. Cardiovascular: There is a regular rate and rhythm. No murmur, rub or gallop is appreciated. Respiratory: Respirations are non-labored, breath sounds are equal. Expiratory wheezes. No stridor, rales, or rhonchi. No abdominal breathing or retractions Gastrointestinal: Soft, non-distended, non-tender abdomen without masses or organomegaly noted. There is no rebound or guarding present. Musculoskeletal: Normal ROM, no tenderness. Strength 5/5. Sensation intact. Radial pulses equal bilaterally 2+. Neurological: A&O x 3. CN II-XII intact grossly, There are no obvious motor or sensory deficits. Coordination appears grossly intact. Speech is normal. Skin: Skin is warm and dry and no rashes or lesions are noted. No LE edema. Psychiatric: Cooperative, appropriate mood & affect, normal judgment. (Shweta Pedroza) Course Vital Signs 06/10/19 06/10/19 06/10/19 06:00 06:05 06:51 Temperature 98.1 F Pulse Rate 128 H 109 H Respiratory 28 H 28 H 20 Rate Blood Pressure 140/91 132/89 O2 Sat by Pulse 94 L 97 Oximetry 06/10/19 06/10/19 07:34 07:58 Temperature Pulse Rate 96 106 H Respiratory Rate Blood Pressure O2 Sat by Pulse Oximetry Medical Decision Making - Lab Data Result diagrams: 06/10/19 06:22 06/10/19 06:22 <Shweta Pedroza - Last Filed: 06/10/19 08:15> - Medical Decision Making 64-year-old male with history of COPD. Presenting for decreased ability to expand lungs, shortness of breath. Patient given multiple treatments, states that he is feeling better requesting discharge this was prior to the results of laboratory studies. Patient states he would stay for labs but then would like to leave. Labs stable. Patient appears welll improvement of expiratory wheeze. At this time we'll discharge patient home return parameters were discussed he is to follow-up with primary care provider in 24-48 hours verbalized understanding. Patient was given a refill of his rescue albuterol inhaler. Case discussed with Dr. Forman who was agreeable with care plan. (Shweta Pedroza) - Lab Data Lab Results 06/10/19 06/10/19 06/10/19 Range/Units 06:22 06:22 06:22 WBC (3.8-10.6) k/uL RBC (4.30-5.90) m/uL Hgb (13.0-17.5) gm/dL Hct (39.0-53.0) % MCV (80.0-100.0) fL MCH (25.0-35.0) pg MCHC (31.0-37.0) g/dL RDW (11.5-15.5) % Plt Count (150-450) k/uL Neutrophils % % Lymphocytes % % Monocytes % % Eosinophils % % Basophils % % Neutrophils # (1.3-7.7) k/uL Lymphocytes # (1.0-4.8) k/uL Monocytes # (0-1.0) k/uL Eosinophils # (0-0.7) k/uL Basophils # (0-0.2) k/uL Manual Slide Review Hypochromasia Macrocytosis PT 10.2 (9.0-12.0) sec INR 0.9 (<1.2) APTT 23.0 (22.0-30.0) sec Sodium 142 (137-145) mmol/L Potassium 4.4 (3.5-5.1) mmol/L Chloride 101 (98-107) mmol/L Carbon Dioxide 33 H (22-30) mmol/L Anion Gap 8 mmol/L BUN 15 (9-20) mg/dL Creatinine 0.82 (0.66-1.25) mg/dL Est GFR (CKD-EPI)AfAm >90 (>60 ml/min/1.73 sqM) Est GFR (CKD-EPI)NonAf >90 (>60 ml/min/1.73 sqM) Glucose 121 H (74-99) mg/dL Plasma Lactic Acid Heber 1.6 (0.7-2.0) mmol/L Calcium 9.6 (8.4-10.2) mg/dL Total Bilirubin 0.6 (0.2-1.3) mg/dL AST 23 (17-59) U/L ALT 17 L (21-72) U/L Alkaline Phosphatase 47 (38-126) U/L Troponin I (0.000-0.034) ng/mL Total Protein 7.5 (6.3-8.2) g/dL Albumin 4.1 (3.5-5.0) g/dL 06/10/19 06/10/19 Range/Units 06:22 06:22 WBC 6.7 (3.8-10.6) k/uL RBC 4.29 L (4.30-5.90) m/uL Hgb 15.0 (13.0-17.5) gm/dL Hct 47.4 (39.0-53.0) % MCV 110.5 H (80.0-100.0) fL MCH 34.9 (25.0-35.0) pg MCHC 31.6 (31.0-37.0) g/dL RDW 12.5 (11.5-15.5) % Plt Count 197 (150-450) k/uL Neutrophils % 61 % Lymphocytes % 23 % Monocytes % 7 % Eosinophils % 5 % Basophils % 1 % Neutrophils # 4.1 (1.3-7.7) k/uL Lymphocytes # 1.5 (1.0-4.8) k/uL Monocytes # 0.5 (0-1.0) k/uL Eosinophils # 0.3 (0-0.7) k/uL Basophils # 0.1 (0-0.2) k/uL Manual Slide Review Performed Hypochromasia Moderate Macrocytosis Marked A PT (9.0-12.0) sec INR (<1.2) APTT (22.0-30.0) sec Sodium (137-145) mmol/L Potassium (3.5-5.1) mmol/L Chloride (98-107) mmol/L Carbon Dioxide (22-30) mmol/L Anion Gap mmol/L BUN (9-20) mg/dL Creatinine (0.66-1.25) mg/dL Est GFR (CKD-EPI)AfAm (>60 ml/min/1.73 sqM) Est GFR (CKD-EPI)NonAf (>60 ml/min/1.73 sqM) Glucose (74-99) mg/dL Plasma Lactic Acid Heber (0.7-2.0) mmol/L Calcium (8.4-10.2) mg/dL Total Bilirubin (0.2-1.3) mg/dL AST (17-59) U/L ALT (21-72) U/L Alkaline Phosphatase (38-126) U/L Troponin I <0.012 (0.000-0.034) ng/mL Total Protein (6.3-8.2) g/dL Albumin (3.5-5.0) g/dL - EKG Data EKG Comments: Ventricular rate 123 beats minute, OH interval 140 ms, QRS duration 66 ms, QT/QTC 316/452 ms. This is sinus tachycardia with right atrial enlargement. No ST elevation or depression. Significant artifact. (Shweta Pedroza) Disposition <Vandana Forman - Last Filed: 06/10/19 06:24> Is patient prescribed a controlled substance at d/c from ED?: No Time of Disposition: 08:01 <Shweta Pedroza - Last Filed: 06/10/19 08:15> Clinical Impression: COPD exacerbation, SOB (shortness of breath) Disposition: HOME SELF-CARE Condition: Good Instructions (If sedation given, give patient instructions): COPD (Chronic Obstructive Pulmonary Disease) (ED) Additional Instructions: Please use medication as discussed. Please follow-up with family doctor in the next 2 day. Please return to emergency room if the symptoms increase or worsen or for any other concerns. Referrals: Gus Aguilar MD [Primary Care Provider] - 1-2 days
[2019-06-10] MEDS ORDERED: methylPREDNISolone SOD SUCCI 125 MG/2 ML VIAL IM ONE (06:50)
[2019-06-10 06:52] VITALS: RESP 20
[2019-06-10] MEDS: IPRATROPIUM-ALBUTEROL 3 ML NEB INHALATION STA ×2 (07:03→07:32)
[2019-06-10 07:06] LABS: ALT 17 U/L (21-72); AST 23 U/L (17-59); African American GFR (CKD) >90 (>60 ml/min/1.73 sqM); Albumin 4.1 g/dL (3.5-5.0); Alkaline Phosphatase 47 U/L (38-126); Anion Gap 8 mmol/L; Blood Urea Nitrogen 15 mg/dL (9-20); Calcium 9.6 mg/dL (8.4-10.2); Carbon Dioxide 33 mmol/L (22-30); Chloride 101 mmol/L (98-107); Glucose 121 mg/dL (74-99); Potassium 4.4 mmol/L (3.5-5.1); Sodium 142 mmol/L (137-145); Total Bilirubin 0.6 mg/dL (0.2-1.3); Total Protein 7.5 g/dL (6.3-8.2)
[2019-06-10 07:18] LABS: Basophils # (A) 0.1 k/uL (0-0.2); Basophils % (A) 1 %; Eosinophils # (A) 0.3 k/uL (0-0.7); Eosinophils % (A) 5 %; HCT 47.4 % (39.0-53.0); Hypochromasia Moderate; Lymphocytes # (A) 1.5 k/uL (1.0-4.8); Lymphocytes % (A) 23 %; MCH 34.9 pg (25.0-35.0); MCHC 31.6 g/dL (31.0-37.0); MCV 110.5 fL (80.0-100.0); Macrocytosis Marked; Monocytes # (A) 0.5 k/uL (0-1.0); Monocytes % (A) 7 %; Neutrophils # (A) 4.1 k/uL (1.3-7.7); Neutrophils % (A) 61 %; Platelet Count 197 k/uL (150-450); RBC 4.29 m/uL (4.30-5.90); RDW 12.5 % (11.5-15.5); WBC 6.7 k/uL (3.8-10.6)
[2019-06-10 07:35] LABS: INR 0.9 (<1.2); Prothrombin Time 10.2 sec (9.0-12.0)
--- NOTE | 2019-06-10 07:39 | XR ---
EXAMINATION TYPE: XR chest 2V DATE OF EXAM: 06/10/2019 COMPARISON: 12/26/2017 HISTORY: COPD and shortness of breath TECHNIQUE: Frontal and lateral views of the chest are obtained. FINDINGS: There is no focal air space opacity, pleural effusion, or pneumothorax seen. There is pul monary hyperinflation indicative of underlying COPD. Bilateral nodular densities are presumed to repr esent nipple shadows as these are symmetric and not redemonstrated on the lateral view. The cardiac s ilhouette size is within normal limits. The osseous structures are intact. Mild multilevel degenera tive changes of the spine. IMPRESSION: No acute cardiopulmonary process. Radiographic sequela of COPD.
[2019-06-10 07:58] VITALS: PULSE 106
[2019-06-10 08:42] VITALS: BP 104/73
== END 2019-06-10 08:40 | disposition home or self-care (01) ==
LOC: EC 05:42
DX: J44.1 Chronic obstructive pulmonary disease with (acute) exacerbation (principal); I48.91 Unspecified atrial fibrillation; F17.200 Nicotine dependence, unspecified, uncomplicated; Z79.899 Other long term (current) drug therapy; Z86.718 Personal history of other venous thrombosis and embolism
CPT/HCPCS: 36415; 94640; 93005; 80053; 83605; 84484; 85025; 85610; 85730; 87040; 71046; 99285; 96372; J2930

== ENCOUNTER 2020-07-04 10:26 | Emergency (ER) | payer OTHER ==
--- NOTE | 2020-07-04 11:31 | ED ---
General Adult HPI - General Stated complaint: SOB Time Seen by Provider: 07/04/20 10:28 - History of Present Illness Initial comments: Dictation was produced using [employer] dictation software. please excuse any grammatical, word or spelling errors. This patient was cared for during a federal and state declared state of emergency secondary to Covid 19 Chief Complaint: 65-year-old male presents with dyspnea History of Present Illness: Is 65-year-old male who is brought in to the emergency department for dyspnea. Patient was brought in by EMS reports the initial cause for shortness of breath at home. Chart review shows that patient has history of COPD. EMS reports that patient had very poor air exchange and started on a breathing treatment. Patient was evaluated briefly by myself. He was acutely dyspneic and unable to provide HPI. Unable to obtain secondary to distress PHYSICAL EXAM: General Impression: Very dyspneic HEENT: Normocephalic atraumatic, extra-ocular movements intact, pupils equal and reactive to light bilaterally, mucous membranes moist. Cardiovascular: Heart regular rate and rhythm Chest: Poor air exchange bilaterally Abdomen: abdomen soft, non-tender, non-distended, no organomegaly Musculoskeletal: Pulses present and equal in all extremities, no peripheral edema Motor: no focal deficits noted Neurological: no gross focal motor or sensory deficits noted Skin: Intact with no visualized rashes Psych: Anxious ED course: Patient was placed initially in room 11 by EMS. I did walk over and examine him for half a minute. Patient was very dyspneic and unable to talk due to his degree of respiratory distress. He had very poor air exchange upon auscultation of the lungs. I walked over to the trauma bay to get the ultrasound machine in order to ultrasound his lungs. 2 seconds after walking aw ay from the room patient underwent cardiac arrest. CPR was initiated patient was moved into trauma bay #4. Patient was pulseless. Mobile fill attempts are made for IV axis peripherally and centrally. IO was placed in the left humerus and right tibia. Patient was coded for approximately 40 minutes. He had achieved ROSC with very weak pulse a couple times however rest was only maintained for a couple seconds at most. Patient had some rounds of what appeared to be ventricular fibrillation and circular tachycardia. Multiple defibrillation attempts were made. Considering that there was concern for cardiac arrest secondary to respiratory arrest patient was intubated. He had frothy fluid that was initially extruded from the ET tube. There was concern for pneumothoraces and ruptured blebs given that patient has history of COPD. Needle decompression was performed bilaterally. CPR was continued for a few more rounds inpatient was now a systolic. CPR was discontinued patient's time of was 1118. Patient case was discussed with Dr. Aguilar who ultimately is willing to sign patient's certificate. Dr. Aguilar discusses that patient has history of medical noncompliance, severe COPD, illicit drug abuse and severe respiratory disease. Case was discussed with Alva from the family practice medical doctor's office who is aware. Family was updated. Sister and second relative were placed in family room and they were told the patient's passing. At this point is not entirely clear why patient . No suspicion that patient secondary to palpitations of COPD and respiratory disease. Patient's symptoms could also have been from massive pulmonary embolism given the patient has history of DVT on chart review and at one point was prescribed Coumadin. However more likely patient's cardiac arrest was secondary to respiratory arrest - Related Data Home Medications Medication Instructions Recorded Confirmed Albuterol Inhaler (Mhu) [Ventolin 2 puff INHALATION RT-Q4H PRN 10/03/16 12/20/16 Hfa Inhaler (Mhu)] Tiotropium 18 Mcg/Puff [Spiriva] 1 cap INHALATION RT-DAILY 10/03/16 12/20/16 Spironolactone-Hctz 25-25Mg 1 tab PO DAILY 12/20/16 12/20/16 [Aldactazide 25-25 MG] cloNIDine HCL [Catapres] 0.1 mg PO BID 12/20/16 12/20/16 Furosemide [Lasix] 40 mg PO BID@0900,1600 PRN 06/10/19 Previous Rx's Medication Instructions Recorded hydrALAZINE HCL [Apresoline] 50 mg PO TID #90 tab 10/11/16 Albuterol Inhaler (Mhu) [Ventolin 1 - 2 puff INHALATION RT-Q6H PRN 7 06/10/19 Hfa Inhaler (Mhu)] Days #1 inhaler Allergies Allergy/AdvReac Type Severity Reaction Status Date / Time No Known Allergies Allergy Verified 07/04/20 10:33 Review of Systems ROS Statement: Those systems with pertinent positive or pertinent negative responses have been documented in the HPI. ROS Other: All systems not noted in ROS Statement are negative. Past Medical History Past Medical History: COPD, Deep Vein Thrombosis (DVT), Renal Disease, Syncope Additional Past Medical History / Comment(s): IV drug abuse(HEROIN) STATED NONE SINCE SEP 2016 ADMIT-, CHRONIC NECK/BACK PAIN, SINUS PROBLEMS, bilateral dvt lower extremities october 2016, HOME 02 2 LITERS N/C, EMPHYSEMA, AFIB, CELLULITIS/RT THIGH ABCESS IN PAST.DENIES ANY HEP C. History of Any Multi-Drug Resistant Organisms: None Reported Past Surgical History: No Surgical Hx Reported Additional Past Surgical History / Comment(s): COLONOSCOPY, PICC LINE SINCE REMOVED. Past Anesthesia/Blood Transfusion Reactions: No Reported Reaction Past Psychological History: No Psychological Hx Reported - Past Family History Father Family Medical History: Myocardial Infarction ([place]) Mother Additional Family Medical History / Comment(s): BRAIN ANEURYSM Course Vital Signs 07/04/20 10:30 Temperature 98 F Pulse Rate 87 Respiratory 36 H Rate Blood Pressure 167/128 O2 Sat by Pulse 84 L Oximetry Critical Care Time Critical Care Time: Yes Total Critical Care Time: 33 Disposition Clinical Impression: Cardiac arrest Disposition: Condition: Undetermined Referrals: Gus Aguilar MD [Primary Care Provider] - 1-2 days Time of Disposition: 12:30 Preliminary Cause of : cardiac arrest
[2020-07-04 11:54] VITALS: BP 167/128; PULSE 87; RESP 36; TEMP 98
[2020-07-04] MEDS ORDERED: CHLORHEXIDINE GLUCONATE 15 ML CUP MUCOUS MEM ONE (16:02)
== END 2020-07-04 11:20 | disposition expired ==
LOC: EC 10:26
DX: I46.9 Cardiac arrest, cause unspecified (principal); J44.9 Chronic obstructive pulmonary disease, unspecified; F17.200 Nicotine dependence, unspecified, uncomplicated; Z91.14 Patient's other noncompliance with medication regimen
CPT/HCPCS: 92950; 99291